=== PATIENT | female | born 1960 | race Caucasian/White ===

== ENCOUNTER 2017-08-16 03:50 | Inpatient (IN) | payer BC ==
[2017-08-16 04:00] VITALS: BMI 33.5
--- NOTE | 2017-08-16 04:05 | ED PDOC ---
Arrival/HPI <Esequiel Parada - Last Filed: 08/16/17 04:55> - General Historian: Patient, Spouse - History of Present Illness Time/Duration: Prior to Arrival Symptom Onset: Sudden Symptom Course: Unchanged Severity Level: Moderate Context: Home <Samantha Lin - Last Filed: 08/16/17 05:32> - General Chief Complaint: Abnormal Skin Integrity Time Seen by Provider: 08/16/17 03:58 - History of Present Illness Narrative History of Present Illness (Text): 08/16/17 04:05 57F w/PMH Sig for ESRD on HD evaluated for bleeding 2/2 discontinued HD catheter. Pt was at home early this AM when she reported to that she was bleeding from her right chest wall HD catheter insertion site. Pt started to bleed perfusely, was brought into hospital. Pt denies trauma or intentional removal of catheter, states that it was secured to chest wall with tape. Denies N/V/F/C, shortness of breath, chest pain, ab pain, other complaints. PMH: CAD s/p stents, ESRD on HD (TTS), diabetes, hypertension, hx stroke x 2 PSH: Stents, HD catheter All: NKDA SH: Denies tobacco, ETOH, illicit drug use (Samantha Lin) Associated Symptoms (Text): 08/16/17 04:08 none (Samatnha Lin) Past Medical History - Provider Review Nursing Documentation Reviewed: Yes <Samantha Lin - Last Filed: 08/16/17 05:32> Family/Social History - Physician Review Nursing Documentation Reviewed: Yes Family/Social History: No Known Family HX Smoking Status: Never Smoked Hx Alcohol Use: No Hx Substance Use: No <Samantha Lin - Last Filed: 08/16/17 05:32> Allergies/Home Meds <Esequiel Parada - Last Filed: 08/16/17 04:55> <Samantha Lin - Last Filed: 08/16/17 05:32> Allergies/Adverse Reactions: Allergies No Known Drug Allergies Allergy (Mild, Verified 08/16/17 04:01) none Home Medications: Home Meds Medication Instructions Recorded Confirmed Aspirin [Aspirin Chewable] 81 mg PO DAILY 08/16/17 08/16/17 Atorvastatin [Lipitor] 40 mg PO HS 08/16/17 08/16/17 B Complex W-C No.20/Folic Acid 1 mg PO DAILY 08/16/17 08/16/17 [[place] Caps Softgel] Calcium Acetate [Phoslo] 667 mg PO TID 08/16/17 08/16/17 Gabapentin [Neurontin] 100 mg PO DAILY 08/16/17 08/16/17 Metoprolol Tartrate [Lopressor] 25 mg PO Q12H 08/16/17 08/16/17 Valsartan [Diovan] 320 mg PO DAILY 08/16/17 08/16/17 amLODIPine [Norvasc] 10 mg PO DAILY 08/16/17 08/16/17 Review of Systems - Review of Systems Constitutional: Normal. absent: Fatigue, Fevers Eyes: Normal ENT: Normal Respiratory: Normal Cardiovascular: Normal. absent: Chest Pain Gastrointestinal: Normal. absent: Abdominal Pain Musculoskeletal: Normal. absent: Back Pain Skin: Normal. absent: Rash Neurological: Normal. absent: Headache <Samantha Lin - Last Filed: 08/16/17 05:32> Physical Exam Vital Signs Reviewed: Yes Temperature: Afebrile Blood Pressure: Hypotensive Pulse: Regular Respiratory Rate: Normal Appearance: Positive for: Non-Toxic, Comfortable Pain Distress: None Mental Status: Positive for: Alert and Oriented X 3 - Systems Exam Head: Present: Atraumatic, Normocephalic Pupils: Present: PERRL Extroacular Muscles: Present: EOMI Conjunctiva: Present: Normal Mouth: Present: Moist Mucous Membranes Nose (External): Present: Atraumatic Neck: Present: Normal Range of Motion Respiratory/Chest: Present: Clear to Auscultation, Good Air Exchange. No: Respiratory Distress, Accessory Muscle Use Cardiovascular: Present: Regular Rate and Rhythm, Normal S1, S2. No: Murmurs Abdomen: Present: Normal Bowel Sounds. No: Tenderness, Distention, Peritoneal Signs Upper Extremity: Present: Normal Inspection. No: Cyanosis, Edema Lower Extremity: Present: Normal Inspection. No: Edema Neurological: Present: GCS=15, CN II-XII Intact, Speech Normal Skin: Present: Warm, Dry, Normal Color, Other (Right chest wall with HD insertion site- no longer bleeding). No: Rashes Psychiatric: Present: Alert, Oriented x 3, Normal Insight, Normal Concentration <Samantha Lin - Last Filed: 08/16/17 05:32> Vital Signs Temp Pulse Resp BP Pulse Ox 08/16/17 04:00 98.3 F 85 18 96/60 L 99 Medical Decision Making - Lab Interpretations I have reviewed the lab results: Yes - EKG Interpretation Interpreted by ED Physician: Yes Type: 12 lead EKG <Esequiel Parada - Last Filed: 08/16/17 04:55> - Lab Interpretations I have reviewed the lab results: Yes - EKG Interpretation Interpreted by ED Physician: Yes Type: 12 lead EKG <Samantha Lin - Last Filed: 08/16/17 05:32> ED Course and Treatment: 08/16/17 04:45 Patient Seen With Resident: In agreement with resident note, which includes further HPI details. Patient was seen and evaluated with resident, came up with plan and treatment together. 57 year old female presents complaining of bleeding from her right chest wall HD catheter insertion site that began today. (Esequiel Parada) 08/16/17 04:29 Pt seen/evaluated, will order labs and other studies to evaluate, order surgery consult for HD catheter re-placement. 08/16/17 05:[address] Smith for possible admission, admission declined, will go to hospitalist team. vice president marketing & development notified. (Samantha Lin) - Lab Interpretations Lab Results: 08/16/17 04:45 08/16/17 04:45 Lab Results 08/16/17 04:45: Blood Type Pending, Antibody Screen Pending, BBK History Checked No verified bt 08/16/17 04:45: Sodium 136, Potassium 5.5 H, Chloride 97 L, Carbon Dioxide 25, Anion Gap 20, BUN 58 H, Creatinine 7.5 H*, Est GFR ( Amer) 7, Est GFR ( Non-Af Amer) 6, Random Glucose 246 H, Calcium 8.9, Total Bilirubin 0.4, AST 24, ALT 20, Alkaline Phosphatase 114, Total Protein 6.6, Albumin 3.2, Globulin 3.4, Albumin/Globulin Ratio 0.9 L 08/16/17 04:45: PT 10.7, INR 0.99, APTT 27.2 08/16/17 04:45: WBC 10.3, RBC 3.22 L, Hgb 8.8 L, Hct 28.1 L, MCV 87.3, MCH 27.3 , MCHC 31.3, RDW 15.9 H, Plt Count 391, MPV 8.8, Gran % 67.4, Lymph % (Auto) 22.5, [place] % (Auto) 4.9, Eos % (Auto) 4.7, Baso % (Auto) 0.5, Gran # 6.96 H, Lymph # 2.3, [place] # 0.5, Eos # 0.5, Baso # 0.05 - RAD Interpretation Radiology Orders: 08/16/17 04:09 CHEST PORTABLE [RAD] Stat - EKG Interpretation EKG Interpretation (Text): 08/16/17 05:16 NSR (Samantha Lin) - PA / BPM ANALYST / Resident 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 MD/DO has examined the patient and agrees with the treatment plan. - Scribe Statement The provider has reviewed the documentation as recorded by the Scribe <Esequiel Parada - Last Filed: 08/16/17 04:55> <Samantha Lin - Last Filed: 08/16/17 05:32> - Scribe Statement Armida Pickering All medical record entries made by the Scribe were at my direction and personally dictated by me. I have reviewed the chart and agree that the record accurately reflects my personal performance of the history, physical exam, medical decision making, and the department course for this patient. I have also personally directed, reviewed, and agree with the discharge instructions and disposition. (Esequiel Parada) Disposition/Present on Arrival <Esequiel Parada - Last Filed: 08/16/17 04:55> - Present on Arrival Any Indicators Present on Arrival: No History of DVT/PE: No History of Uncontrolled Diabetes: No Urinary Catheter: No History of Decub. Ulcer: No - Disposition Have Diagnosis and Disposition been Completed?: Yes Disposition Time: 05:10 Patient Plan: Admission <Samantha Lin - Last Filed: 08/16/17 05:32> - Disposition Diagnosis: Displacement of vascular dialysis catheter Disposition: HOSPITALIZED Condition: FAIR Forms: [employer] (Bengali)
[2017-08-16 05:03] LABS: BASO # 0.05 K/mm3 (0.0-2.0); BASO % 0.5 % (0.0-3.0); EOS # 0.5 (0.0-0.7); EOS % 4.7 % (1.5-5.0); GRAN # 6.96 (1.4-6.5); GRAN % 67.4 % (50.0-68.0); HEMATOCRIT 28.1 % (36.0-48.0); LYMPH # 2.3 (1.2-3.4); LYMPH % 22.5 % (22.0-35.0); MEAN CELL VOLUME 87.3 fl (80.0-105.0); MEAN CORPUSCULAR HEMOGLOBIN 27.3 pg (25.0-35.0); MEAN CORPUSCULAR HGB CONC 31.3 g/dl (31.0-37.0); MEAN PLATELET VOLUME 8.8 fl (7.0-11.0); MONO # 0.5 (0.1-0.6); MONO % 4.9 % (1.0-6.0); RED CELL DISTRIBUTION WIDTH 15.9 % (11.5-14.5); WHITE BLOOD COUNT 10.3 10^3/ul (4.5-11.0)
[2017-08-16 05:11] LABS: INR 0.99 (0.93-1.08); PARTIAL THROMBOPLASTIN TIME 27.2 Seconds (23.7-30.8)
[2017-08-16 05:13] LABS: ALB/GLOB RATIO 0.9 (1.1-1.8); BILIRUBIN,TOTAL 0.4 mg/dL (0.2-1.3); CALCIUM 8.9 mg/dL (8.4-10.5); POTASSIUM 5.5 mmol/L (3.6-5.0); TOTAL PROTEIN 6.6 g/dL (5.8-8.3)
--- NOTE | 2017-08-16 06:01 | CP.PCM.CON ---
History of Present Illness - History of Present Illness History of Present Illness: General Surgery- Dr. Yeung 57F pmhx stroke x2, ESRD, permacath placement presented to the [facility] ED with tunneled dialysis catheter site bleeding from "falling out". Pt states she was sleeping and woke up in puddle of blood and dialysis catheter having fallen out. Pt does not recall pulling on the catheter. Most of the history was obtained from the . Pt receiving dialysis 3x per week and is scheduled to have dialysis today. Permacath was placed at [facility] and is schedule to have an AV-Fistula formation in the near future. Current mental status is AAOx2 (Person & place) Pt denies F/C CP/SOB N/V/D light headed, numbness/tingling in extremities PSH: Right Toe debridement, Cardiac stent 2007, permacath PMH: stroke x2, HTN, DM, ESRD ALL: NKDA SocialHx; Denies ETOH, tobacco, drug use Review of Systems - Review of Systems All systems: reviewed and no additional remarkable complaints except - Constitutional Constitutional: As Per HPI Past Patient History - Past Social History Smoking Status: Never Smoked - CARDIAC Hx Cardiac Disorders: Yes Hx Hypercholesterolemia: Yes Hx Hypertension: Yes Other/Comment: 1 coronary stent - PULMONARY Hx Respiratory Disorders: No - NEUROLOGICAL Hx Neurological Disorder: Yes Hx Transient Ischemic Attacks (TIA): Yes - HEENT Hx HEENT Problems: No - RENAL Hx Chronic Kidney Disease: Yes Hx Dialysis: Yes Date of Last Dialysis Treatment: 08/14/17 - ENDOCRINE/METABOLIC Hx Endocrine Disorders: Yes Hx Diabetes Mellitus Type 2: Yes - HEMATOLOGICAL/ONCOLOGICAL Hx Blood Disorders: No - INTEGUMENTARY Hx Dermatological Problems: No - MUSCULOSKELETAL/RHEUMATOLOGICAL Hx Musculoskeletal Disorders: No - GASTROINTESTINAL Hx Gastrointestinal Disorders: No - GENITOURINARY/GYNECOLOGICAL Hx Genitourinary Disorders: No - PSYCHIATRIC Hx Substance Use: No - SURGICAL HISTORY Hx Surgeries: Yes Hx Cardiac Catheterization: Yes Hx Section: Yes (X2) Meds Allergies/Adverse Reactions: Allergies Allergy/AdvReac Type Severity Reaction Status Date / Time No Known Drug Allergies Allergy Mild none Verified 08/16/17 04:01 Physical Exam - Constitutional Appears: Non-toxic, No Acute Distress - Head Exam Head Exam: ATRAUMATIC - Eye Exam Eye Exam: absent: Periorbital swelling, Scleral icterus - ENT Exam ENT Exam: Mucous Membranes Moist - Neck Exam Additional comments: HD tunneled site: no erythema or active bleeding - Respiratory Exam Respiratory Exam: NORMAL BREATHING PATTERN. absent: Accessory Muscle Use, Respiratory Distress - Cardiovascular Exam Cardiovascular Exam: Tachycardia, RRR, +S1, +S2. absent: Bradycardia - GI/Abdominal Exam GI & Abdominal Exam: Normal Bowel Sounds, Soft. absent: Distended, Firm, Rigid - Extremities Exam Additional comments: Right toe- mal perforans ulcer. - Neurological Exam Neurological exam: Alert Additional comments: AAOx2 - Skin Skin Exam: Normal Color Results - Vital Signs Recent Vital Signs: Last Vital Signs Temp 98.3 F 08/16/17 04:00 Pulse 85 08/16/17 04:00 Resp 18 08/16/17 04:00 BP 96/60 L 08/16/17 04:00 Pulse Ox 99 08/16/17 04:00 - Labs Result Diagrams: 08/16/17 04:45 08/16/17 04:45 Assessment & Plan - Assessment and Plan (Free Text) Assessment: 57F w/ ESRD s/p tunneled HD catheter pulled out Plan: - site looks clean w/ proper hemostasis - f/u labs in 6hrs - f/u BCx - plan for temporary dialysis catheter placement - NPO - IVF will d/w surgical attending Carlos Ignacio PGY1
[2017-08-16] MEDS ORDERED: Lactated Ringer's 1,000 ML IV SCH (06:15)
[2017-08-16] MEDS: Pantoprazole 40 mg EC Tab PO SCH (06:15)
[2017-08-16] MEDS: Vancomycin 1gm in NS 250ml 1 GM/250 ML BAG IVPB SCH ×2 (06:15→20:55)
--- NOTE | 2017-08-16 06:29 | CP.PCM.HP ---
<CarrieJose waggoner - Last Filed: 08/16/17 06:21> History of Present Illness - History of Present Illness History of Present Illness: H/P For IM -TKS DO, PGY-1 CC: Dialysis Catheter Out HPI: 57F w pertinent PMHx of HTN, DM, and ESRD on Dialysis T/R/Sa presents with 2 hour duration of profuse bleeding 2/2 her dialysis catheter coming out. She states that she woke up at 3AM and found herself to be bleeding from the catheter site. She and her family both state that sometimes she becomes obtunded but that this am she was lucid, and that she did not pull the catheter out. Her became worried and immediately drove her to the ED, but she did lose quite a bit of blood. Pt's dialysis catheter was placed at [facility] and she is scheduled to have an AVFistula placed soon. Pt denies having any symptoms at all at this time including dizziness, fatigue, confusion. Family also states that she is completely lucid at this time. No further complaints. Pt denies f/ch/cp/sob/n/v/d/hematochezia/hematemesis PSHx: Right Toe debridement, Cardiac stent 2007, Permacath PMHx: stroke x2, HTN, DM, ESRD, CAD s/p stents 2007 All: NKDA SocHx: Denies EtOH, Tobacco, Illicits Hosp: In hospital from April - June when first placed on dialysis FamHx: Non-contributory Meds: See MAR ROS: Constitutional: pt denies fever, chills, generalized weakness ENT: pt denies dysphagia, otalgia, hearing deficit, rhinorrhea Eyes: pt denies sudden loss of vision, diplopia, blurred vision MSK: pt denies muscle stiffness, joint pain, extremity cramping Cardio: pt denies sob, heart murmur, cp Pulm: pt denies cough, hemoptysis, wheeze GI: pt denies loss of appetite, abdominal pain, constipation, melena, n/v/d : pt denies burning on urination, urinary frequency, hematuria, urinary urgency Neuro: pt denies paresis, paresthesia, dizziness, hernández, numbness, tingling Derm: pt denies skin changes, lesions, nail changes Endo: pt denies intolerance to heat/cold, diaphoresis, night sweats, polydipsia Psych: pt denies anxiety, depression, mood changes Present on Admission - Present on Admission Any Indicators Present on Admission: No Past Patient History - Past Social History Smoking Status: Never Smoked - CARDIAC Hx Cardiac Disorders: Yes Hx Hypercholesterolemia: Yes Hx Hypertension: Yes Other/Comment: 1 coronary stent - PULMONARY Hx Respiratory Disorders: No - NEUROLOGICAL Hx Neurological Disorder: Yes Hx Transient Ischemic Attacks (TIA): Yes - HEENT Hx HEENT Problems: No - RENAL Hx Chronic Kidney Disease: Yes Hx Dialysis: Yes Date of Last Dialysis Treatment: 08/14/17 - ENDOCRINE/METABOLIC Hx Endocrine Disorders: Yes Hx Diabetes Mellitus Type 2: Yes - HEMATOLOGICAL/ONCOLOGICAL Hx Blood Disorders: No - INTEGUMENTARY Hx Dermatological Problems: No - MUSCULOSKELETAL/RHEUMATOLOGICAL Hx Musculoskeletal Disorders: No - GASTROINTESTINAL Hx Gastrointestinal Disorders: No - GENITOURINARY/GYNECOLOGICAL Hx Genitourinary Disorders: No - PSYCHIATRIC Hx Substance Use: No - SURGICAL HISTORY Hx Surgeries: Yes Hx Cardiac Catheterization: Yes Hx Section: Yes (X2) Meds Allergies/Adverse Reactions: Allergies Allergy/AdvReac Type Severity Reaction Status Date / Time No Known Drug Allergies Allergy Mild none Verified 08/16/17 04:01 Physical Exam - Additional Findings Additional findings: Phys Exam: VS as below Constitutional: a&o x 4, nad Head and Neck: neck supple, no jvd, trachea midline, carotid midline, no cervical/head mass Eyes: jacki, nonicteric sclera, eom intact ENT: auditory acuity grossly intact, throat not congested, no nasal deformity Chest: +minor bleeding from catheter site on R upper chest wall Cardio: rrr, no m/r/g, no carotid bruit, nml s1, s2 Pulm: no accessory muscle use, equal nml breath sounds bilaterally, ctab Abd: s/nt/nd, nbs x 4 q, no palpable masses Derm: +see extremities exam; no rashes, no ulcers Extr: +r hallux erythematous, warm, and swollen; no edema, no cyanosis, no calf tenderness, no lesions, no varicosities Neuro: cn II-XII grossly intact, ue and le 5/5 muscle strength bilaterally , no los ue, le bilaterally and core Results - Vital Signs Recent Vital Signs: Last Vital Signs Temp 98.3 F 08/16/17 04:00 Pulse 68 10/07/17 06:04 Resp 16 08/16/17 06:04 BP 100/62 08/16/17 06:04 Pulse Ox 99 08/16/17 06:04 - Labs Result Diagrams: 08/16/17 04:45 08/16/17 04:45 Assessment & Plan - Assessment and Plan (Free Text) Assessment: A/P 57 F with multiple co-morbidities presenting with profuse bleeding after dialysis catheter came out, denies pulling it out. Asymptomatic despite profuse blood loss. Dialysis Permacath Removed - Nephro c/s - help decide where and when to place catheter - General Surgery c/s: Dr. Yeung - NPO ESRD on Dialysis - Nephro c/s: Dr. Haji - Pt is hyperkalemic and creatinine is elevated, needs dialysis today - Continue home Phoslo and B Complex R Hallux Infection - Vanc/Zosyn - Pods C/s: Gallanter Hx/O HTN - Continue Amlodipine, Valsartan, Metoprolol Hx/O DM - RISS Low Hx/O CAD s/p Stents - Continue home Lipitor, ASA PPX - Heparin/Protonix <Esther HAM,Aldo - Last Filed: 08/18/17 11:15> Results - Vital Signs Recent Vital Signs: Last Vital Signs Temp 98.0 F 08/18/17 07:30 Pulse 76 08/18/17 07:30 Resp 20 08/18/17 07:30 BP 153/67 H 08/18/17 10:29 Pulse Ox 98 08/18/17 07:30 - Labs Result Diagrams: 08/18/17 06:45 08/18/17 06:45 Labs: Laboratory Results - last 24 hr 08/16/17 08/17/17 08/17/17 21:25 11:54 16:11 WBC RBC Hgb Hct MCV MCH MCHC RDW Plt Count MPV Gran % Lymph % (Auto) [place] % (Auto) Eos % (Auto) Baso % (Auto) Gran # Lymph # [place] # Eos # Baso # Sodium Potassium Chloride Carbon Dioxide Anion Gap BUN Creatinine Est GFR ( Amer) Est GFR (Non-Af Amer) POC Glucose (mg/dL) 196 H 229 H 226 H Random Glucose Calcium Phosphorus Magnesium Total Bilirubin AST ALT Alkaline Phosphatase Total Protein Albumin Globulin Albumin/Globulin Ratio 08/17/17 08/18/17 08/18/17 20:59 06:45 06:45 WBC 9.7 D RBC 2.67 L Hgb 7.3 L Hct 23.2 L MCV 86.9 MCH 27.3 MCHC 31.5 RDW 16.6 H Plt Count 320 MPV 8.8 Gran % 68.7 H Lymph % (Auto) 20.5 L [place] % (Auto) 6.0 Eos % (Auto) 4.4 Baso % (Auto) 0.4 Gran # 6.69 H Lymph # 2.0 [place] # 0.6 Eos # 0.4 Baso # 0.04 Sodium 132 Potassium 5.9 H* Chloride 95 Carbon Dioxide 25 Anion Gap 18 BUN 58 H Creatinine 8.9 H* D Est GFR ( Amer) 6 Est GFR (Non-Af Amer) 5 POC Glucose (mg/dL) 280 H Random Glucose 203 H Calcium 8.5 Phosphorus 8.3 H Magnesium 2.2 Total Bilirubin 0.4 AST 30 ALT 26 Alkaline Phosphatase 82 Total Protein 6.6 Albumin 3.5 Globulin 3.2 Albumin/Globulin Ratio 1.1 08/18/17 07:37 WBC RBC Hgb Hct MCV MCH MCHC RDW Plt Count MPV Gran % Lymph % (Auto) [place] % (Auto) Eos % (Auto) Baso % (Auto) Gran # Lymph # [place] # Eos # Baso # Sodium Potassium Chloride Carbon Dioxide Anion Gap BUN Creatinine Est GFR ( Amer) Est GFR (Non-Af Amer) POC Glucose (mg/dL) 236 H Random Glucose Calcium Phosphorus Magnesium Total Bilirubin AST ALT Alkaline Phosphatase Total Protein Albumin Globulin Albumin/Globulin Ratio Attending/Attestation - Attestation I have personally seen and examined this patient.: Yes I have fully participated in the care of the patient.: Yes I have reviewed all pertinent clinical information: Yes Notes (Text): -I agree with the above H&P completed by the resident physician with the following additions and/or changes: -The patient is a 57 year old woman with a history of ESRD-DD, HTN and NIDDM, who is being admitted for dialysis catheter dysfunction/malfunction. Nephrology has been consulted and the patient will be kept NPO for likely placement of new dialysis catheter tomorrow.
[2017-08-16 07:37] LABS: MAGNESIUM 2.2 mg/dL (1.7-2.2); PHOSPHOROUS 7.6 mg/dL (2.5-4.5)
[2017-08-16] MEDS: Insulin Lispro (humaLOG) LOW Coverage SC SCH ×4 (07:54→22:27)
--- NOTE | 2017-08-16 09:37 | CP.PCM.CON ---
Past Patient History - Past Social History Smoking Status: Never Smoked - CARDIAC Hx Cardiac Disorders: Yes Hx Hypercholesterolemia: Yes Hx Hypertension: Yes Other/Comment: 1 coronary stent - PULMONARY Hx Respiratory Disorders: No - NEUROLOGICAL Hx Neurological Disorder: Yes Hx Transient Ischemic Attacks (TIA): Yes - HEENT Hx HEENT Problems: No - RENAL Hx Chronic Kidney Disease: Yes Hx Dialysis: Yes Date of Last Dialysis Treatment: 08/14/17 - ENDOCRINE/METABOLIC Hx Endocrine Disorders: Yes Hx Diabetes Mellitus Type 2: Yes - HEMATOLOGICAL/ONCOLOGICAL Hx Blood Disorders: No - INTEGUMENTARY Hx Dermatological Problems: No - MUSCULOSKELETAL/RHEUMATOLOGICAL Hx Musculoskeletal Disorders: No - GASTROINTESTINAL Hx Gastrointestinal Disorders: No - GENITOURINARY/GYNECOLOGICAL Hx Genitourinary Disorders: No - PSYCHIATRIC Hx Substance Use: No - SURGICAL HISTORY Hx Surgeries: Yes Hx Cardiac Catheterization: Yes Hx Section: Yes (X2) Meds Allergies/Adverse Reactions: Allergies Allergy/AdvReac Type Severity Reaction Status Date / Time No Known Drug Allergies Allergy Mild none Verified 08/16/17 04:01 - Medications Medications: Current Medications Amlodipine Besylate (Norvasc) 10 mg PO DAILY SHILO Aspirin (Aspirin Chewable) 81 mg PO DAILY SHILO Atorvastatin Calcium (Lipitor) 40 mg PO HS SHILO Calcium Acetate (Phoslo) 667 mg PO WM SHILO Gabapentin (Neurontin) 100 mg PO DAILY SHILO PRN Reason: Protocol Heparin Sodium (Porcine) (Heparin) 5,000 units SC Q12 SHILO PRN Reason: Protocol Vancomycin HCl (Vancomycin 1gm) 1 gm in 250 mls @ 167 mls/hr IVPB Q12H SHILO PRN Reason: Protocol Last Admin: 08/16/17 06:15 Dose: 167 mls/hr Piperacillin Sod/Tazobactam Sod (Zosyn 2.25 Gm In 0.9% 100 Ml) 2.25 gm in 100 mls @ 200 mls/hr IVPB Q12H SHILO PRN Reason: Protocol Stop: 08/16/17 19:29 Lactated Ringer's (Lactated Ringer's) 1,000 mls @ 125 mls/hr IV .Q8H SHILO Insulin Human Lispro (Humalog Low) 0 units SC ACHS SHILO PRN Reason: Protocol Metoprolol Tartrate (Lopressor) 25 mg PO Q12H [facility]ILO Pantoprazole Sodium (Protonix Ec Tab) 40 mg PO 0600 [facility] Last Admin: 08/16/17 06:15 Dose: 40 mg Valsartan (Diovan) 320 mg PO DAILY [facility] Vitamin B Complex/Vit C/Folic Acid (Nephro-Callie) 1 tab PO DAILY [facility] Results - Vital Signs Recent Vital Signs: Last Vital Signs Temp 98.8 F 08/16/17 08:11 Pulse 78 08/16/17 08:11 Resp 20 08/16/17 08:11 BP 140/59 L 08/16/17 08:11 Pulse Ox 97 08/16/17 08:11 - Labs Result Diagrams: 08/16/17 04:45 08/16/17 04:45 Labs: Laboratory Results - last 24 hr 08/16/17 08/16/17 06:00 07:58 POC Glucose (mg/dL) 275 H Blood Type Confirm B POSITIVE
--- NOTE | 2017-08-16 09:58 | RAD ---
PROCEDURE: Radiographs of the right great toe. TECHNIQUE:: AP radiograph of the right foot, with oblique and lateral view of the right great toe. COMPARISON: None. FINDINGS: BONES: No acute fracture or evidence of osteomyelitis. JOINTS: Normal. SOFT TISSUES: Soft tissue swelling 1st digit. OTHER FINDINGS: None. IMPRESSION: Soft tissue swelling without acute articular or osseous abnormality. Please note: No preliminary report/ innterpretation of this examination provided by emergency department personnel.
--- NOTE | 2017-08-16 10:21 | RAD ---
HISTORY: HD catheter removed COMPARISON: None. FINDINGS: LUNGS: Haziness overlying the right lung, of the likely artifact. If pneumonia is suspected repeat two-view study advised. PLEURA: No significant pleural effusion identified, no pneumothorax apparent. CARDIOVASCULAR: Normal. OSSEOUS STRUCTURES: No significant abnormalities. VISUALIZED UPPER ABDOMEN: Normal. OTHER FINDINGS: None. IMPRESSION: No active disease. Please note: No preliminary report/ innterpretation of this examination provided by emergency department personnel.
[2017-08-16] MEDS: Multivitamin Vitamin B Complex (Nephro-Vite) Tab PO SCH (10:54)
[2017-08-16] MEDS: Piperacillin/Tazobact 2.25gm 2.25 GM/100 ML BAG IVPB SCH ×2 (10:57→19:29)
[2017-08-16] MEDS ORDERED: Darbepoetin Alfa 60 mcg/ml Inj IVP ONE (12:22)
[2017-08-16] MEDS ORDERED: Doxercalciferol 4 mcg/2 ml Inj IV ONE (12:23)
[2017-08-16] MEDS ORDERED: Pneumococcal 23-Valent Vaccine IM ONE (12:28)
[2017-08-16 13:08] LABS: BASO # 0.07 K/mm3 (0.0-2.0); BASO % 0.5 % (0.0-3.0); EOS # 0.4 (0.0-0.7); EOS % 3.3 % (1.5-5.0); GRAN # 8.73 (1.4-6.5); GRAN % 68.6 % (50.0-68.0); HEMATOCRIT 26.6 % (36.0-48.0); LYMPH # 2.9 (1.2-3.4); LYMPH % 22.5 % (22.0-35.0); MEAN CELL VOLUME 87.5 fl (80.0-105.0); MEAN CORPUSCULAR HGB CONC 30.8 g/dl (31.0-37.0); MEAN PLATELET VOLUME 8.4 fl (7.0-11.0); MONO # 0.7 (0.1-0.6); MONO % 5.1 % (1.0-6.0); WHITE BLOOD COUNT 12.7 10^3/ul (4.5-11.0)
[2017-08-16 13:25] LABS: BILIRUBIN,TOTAL 0.4 mg/dL (0.2-1.3); CALCIUM 9.2 mg/dL (8.4-10.5); TOTAL PROTEIN 6.7 g/dL (5.8-8.3)
--- NOTE | 2017-08-16 14:12 | CP.PCM.CON ---
History of Present Illness - History of Present Illness History of Present Illness: pt is seen and examined, full consult is dictated #[id number] 1. esrd 2. dislodged perma cath 3.hyperkalemia 4.htn 5.DM 6.CVA for hd today s/p rt fv cath placement for possible perma cath on friday Past Patient History - Past Social History Smoking Status: Never Smoked - CARDIAC Hx Cardiac Disorders: Yes Hx Hypercholesterolemia: Yes Hx Hypertension: Yes Hx Peripheral Edema: Yes (ble +1 pitting) - PULMONARY Hx Respiratory Disorders: No - NEUROLOGICAL Hx Neurological Disorder: Yes Hx Transient Ischemic Attacks (TIA): Yes (12/2016 no residual) - HEENT Hx HEENT Problems: Yes ([place] ear does not use hearing aid) Hx Cataracts: Yes (b/l sx) - RENAL Hx Chronic Kidney Disease: Yes Hx Dialysis: Yes (started hd 12/2016) Date of Last Dialysis Treatment: 08/14/17 Other/Comment: dialysis at 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 - MUSCULOSKELETAL/RHEUMATOLOGICAL Hx Falls: No Hx Unsteady Gait: Yes (walker) - GASTROINTESTINAL Hx Gastrointestinal Disorders: No - GENITOURINARY/GYNECOLOGICAL Hx Genitourinary Disorders: No - PSYCHIATRIC Hx Psychophysiologic Disorder: No Hx Substance Use: No - SURGICAL HISTORY Hx Surgeries: Yes (c section x2) Hx Cardiac Catheterization: Yes Hx Coronary Stent: Yes (x1) Meds Allergies/Adverse Reactions: Allergies Allergy/AdvReac Type Severity Reaction Status Date / Time No Known Drug Allergies Allergy Mild none Verified 08/16/17 04:01 - Medications Medications: Current Medications Amlodipine Besylate (Norvasc) 10 mg PO DAILY [facility] Last Admin: 08/16/17 10:54 Dose: 10 mg Aspirin (Aspirin Chewable) 81 mg PO DAILY [facility] Last Admin: 08/16/17 10:53 Dose: 81 mg Atorvastatin Calcium (Lipitor) 40 mg PO HS [facility] Calcium Acetate (Phoslo) 667 mg PO WM [facility] Last Admin: 08/16/17 10:53 Dose: 667 mg Gabapentin (Neurontin) 100 mg PO DAILY [facility] PRN Reason: Protocol Last Admin: 08/16/17 10:53 Dose: 100 mg Heparin Sodium (Porcine) (Heparin) 5,000 units SC Q12 [facility] PRN Reason: Protocol Last Admin: 08/16/17 10:53 Dose: 5,000 units Vancomycin HCl (Vancomycin 1gm) 1 gm in 250 mls @ 167 mls/hr IVPB Q12H [facility] PRN Reason: Protocol Last Admin: 08/16/17 06:15 Dose: 167 mls/hr Piperacillin Sod/Tazobactam Sod (Zosyn 2.25 Gm In 0.9% 100 Ml) 2.25 gm in 100 mls @ 200 mls/hr IVPB Q12H [facility] PRN Reason: Protocol Stop: 08/16/17 19:29 Last Admin: 08/16/17 10:57 Dose: 200 mls/hr Lactated Ringer's (Lactated Ringer's) 1,000 mls @ 125 mls/hr IV .Q8H [facility] Last Admin: 08/16/17 11:10 Dose: 125 mls/hr Insulin Human Lispro (Humalog Low) 0 units SC ACHS [facility] PRN Reason: Protocol Last Admin: 08/16/17 11:47 Dose: Not Given Metoprolol Tartrate (Lopressor) 25 mg PO Q12H [facility] Pantoprazole Sodium (Protonix Ec Tab) 40 mg PO 0600 [facility] Last Admin: 08/16/17 06:15 Dose: 40 mg Valsartan (Diovan) 320 mg PO DAILY [facility] Last Admin: 08/16/17 10:53 Dose: 320 mg Vitamin B Complex/Vit C/Folic Acid (Nephro-Callie) 1 tab PO DAILY [facility] Last Admin: 08/16/17 10:54 Dose: 1 tab Results - Vital Signs Recent Vital Signs: Last Vital Signs Temp 98.8 F 08/16/17 12:13 Pulse 78 08/16/17 12:13 Resp 20 08/16/17 12:13 BP 140/59 L 08/16/17 12:13 Pulse Ox 97 08/16/17 08:11 - Labs Result Diagrams: 08/16/17 12:45 08/16/17 12:45 Labs: Laboratory Results - last 24 hr 08/16/17 08/16/17 08/16/17 06:00 07:58 12:45 WBC 12.7 H D RBC 3.04 L Hgb 8.2 L Hct 26.6 L MCV 87.5 MCH 27.0 MCHC 30.8 L RDW 16.0 H Plt Count 357 MPV 8.4 Gran % 68.6 H Lymph % (Auto) 22.5 Bowie % (Auto) 5.1 Eos % (Auto) 3.3 Baso % (Auto) 0.5 Gran # 8.73 H Lymph # 2.9 Bowie # 0.7 H Eos # 0.4 Baso # 0.07 Sodium Potassium Chloride Carbon Dioxide Anion Gap BUN Creatinine Est GFR ( Amer) Est GFR (Non-Af Amer) POC Glucose (mg/dL) 275 H Random Glucose Calcium Total Bilirubin AST ALT Alkaline Phosphatase Total Protein Albumin Globulin Albumin/Globulin Ratio Blood Type Confirm B POSITIVE 08/16/17 12:45 WBC RBC Hgb Hct MCV MCH MCHC RDW Plt Count MPV Gran % Lymph % (Auto) Bowie % (Auto) Eos % (Auto) Baso % (Auto) Gran # Lymph # Bowie # Eos # Baso # Sodium 137 Potassium 6.0 H* Chloride 97 L Carbon Dioxide 26 Anion Gap 20 BUN 61 H Creatinine 8.7 H* Est GFR ( Amer) 6 Est GFR (Non-Af Amer) 5 POC Glucose (mg/dL) Random Glucose 192 H Calcium 9.2 Total Bilirubin 0.4 AST 28 ALT 21 Alkaline Phosphatase 100 Total Protein 6.7 Albumin 3.4 Globulin 3.3 Albumin/Globulin Ratio 1.0 L Blood Type Confirm
[2017-08-16 19:52] LABS: CALCIUM 8.6 mg/dL (8.4-10.5); PHOSPHOROUS 5.4 mg/dL (2.5-4.5); POTASSIUM 4.6 mmol/L (3.6-5.0)
--- NOTE | 2017-08-16 23:02 | CARD ---
APPROVED REPORT EKG Measurement Heart [id number] MD [id number] [id number] <Conclusion> Normal sinus rhythm Normal ECG
[2017-08-17] MEDS: Vancomycin 1gm in NS 250ml 1 GM/250 ML BAG IVPB SCH (06:30)
[2017-08-17] MEDS: Pantoprazole 40 mg EC Tab PO SCH (06:31)
[2017-08-17 06:58] LABS: BASO # 0.06 K/mm3 (0.0-2.0); BASO % 0.5 % (0.0-3.0); EOS # 0.2 (0.0-0.7); EOS % 1.5 % (1.5-5.0); GRAN # 9.48 (1.4-6.5); GRAN % 71.8 % (50.0-68.0); HEMATOCRIT 24.3 % (36.0-48.0); LYMPH # 2.8 (1.2-3.4); LYMPH % 21.3 % (22.0-35.0); MEAN CELL VOLUME 87.7 fl (80.0-105.0); MEAN CORPUSCULAR HEMOGLOBIN 27.1 pg (25.0-35.0); MEAN CORPUSCULAR HGB CONC 30.9 g/dl (31.0-37.0); MEAN PLATELET VOLUME 8.9 fl (7.0-11.0); MONO # 0.7 (0.1-0.6); MONO % 4.9 % (1.0-6.0); RED CELL DISTRIBUTION WIDTH 16.6 % (11.5-14.5); WHITE BLOOD COUNT 13.2 10^3/ul (4.5-11.0)
[2017-08-17 07:18] LABS: BILIRUBIN,TOTAL 0.3 mg/dL (0.2-1.3); CALCIUM 8.4 mg/dL (8.4-10.5); MAGNESIUM 2.1 mg/dL (1.7-2.2); PHOSPHOROUS 6.9 mg/dL (2.5-4.5); POTASSIUM 5.3 mmol/L (3.6-5.0); TOTAL PROTEIN 6.6 g/dL (5.8-8.3)
[2017-08-17] MEDS: Insulin Lispro (humaLOG) LOW Coverage SC SCH ×4 (07:58→22:26)
--- NOTE | 2017-08-17 10:01 | CP.PCM.PN ---
Subjective - Date & Time of Evaluation Date of Evaluation: 08/17/17 Time of Evaluation: 08:00 - Subjective Subjective: Surgery Progress note. Dr. Yeung Pt seen and examined at bedside. No acute events overnight. No F/C. No N/V/D. no Abd pain. No new compaints. States that she had her scheduled dialysis yesterday. Objective - Vital Signs/Intake and Output Vital Signs (last 24 hours): Temp Pulse Resp BP Pulse Ox 98.9 F 79 20 139/60 97 08/17/17 07:32 08/17/17 07:54 08/17/17 07:32 08/17/17 07:54 08/17/17 07:32 Intake and Output: 08/17/17 08/17/17 06:59 18:59 Intake Total 240 Balance 240 - Medications Medications: Current Medications Amlodipine Besylate (Norvasc) 10 mg PO DAILY [facility] Last Admin: 08/16/17 10:54 Dose: 10 mg Aspirin (Aspirin Chewable) 81 mg PO DAILY [facility] Last Admin: 08/16/17 10:53 Dose: 81 mg Atorvastatin Calcium (Lipitor) 40 mg PO HS [facility] Last Admin: 08/16/17 22:05 Dose: 40 mg Calcium Acetate (Phoslo) 667 mg PO WM [facility] Last Admin: 08/17/17 08:32 Dose: 667 mg Gabapentin (Neurontin) 100 mg PO DAILY [facility] PRN Reason: Protocol Last Admin: 08/16/17 10:53 Dose: 100 mg Heparin Sodium (Porcine) (Heparin) 5,000 units SC Q12 [facility] PRN Reason: Protocol Last Admin: 08/16/17 22:05 Dose: 5,000 units Vancomycin HCl (Vancomycin 1gm) 1 gm in 250 mls @ 167 mls/hr IVPB Q12H [facility] PRN Reason: Protocol Last Admin: 08/17/17 06:30 Dose: 167 mls/hr Insulin Human Lispro (Humalog Low) 0 units SC ACHS [facility] PRN Reason: Protocol Last Admin: 08/16/17 22:27 Dose: Not Given Metoprolol Tartrate (Lopressor) 25 mg PO Q12H [facility] Last Admin: 08/17/17 07:54 Dose: 25 mg Pantoprazole Sodium (Protonix Ec Tab) 40 mg PO 0600 [facility] Last Admin: 08/17/17 06:31 Dose: 40 mg Valsartan (Diovan) 320 mg PO DAILY [facility] Last Admin: 08/16/17 10:53 Dose: 320 mg Vitamin B Complex/Vit C/Folic Acid (Nephro-Callie) 1 tab PO DAILY [facility] Last Admin: 08/16/17 10:54 Dose: 1 tab - Labs Labs: 08/17/17 06:00 08/17/17 06:00 PT 10.7 Seconds (9.9-11.8) 08/16/17 04:45 INR 0.99 (0.93-1.08) 08/16/17 04:45 APTT 27.2 Seconds (23.7-30.8) 08/16/17 04:45 - Constitutional Appears: Well, No Acute Distress - Head Exam Head Exam: ATRAUMATIC, NORMAL INSPECTION, NORMOCEPHALIC - Eye Exam Eye Exam: EOMI - ENT Exam ENT Exam: Mucous Membranes Moist - Extremities Exam Additional comments: Right Femoral Dialysis catherter in place. Dressing clean, dry, and intact. No apparent hematoma. - Neurological Exam Neurological Exam: Alert, Awake, Oriented x3 - Psychiatric Exam Psychiatric exam: Normal Affect, Normal Mood - Skin Skin Exam: Dry, Intact, Normal Color, Warm Assessment and Plan - Assessment and Plan (Free Text) Assessment: 57yo F with ESRD on HD here after pulled permacath. S/p bedside R Femoral temp Dialysis catheter 08/16/17. - Dressing changes prn - Catheter okay to use - Possible OR for permacath on Friday - Medical management as per primary team Further recs as per Dr. Gamal Goodrich PGY1 surgery pager: [phone]
--- NOTE | 2017-08-17 10:06 | PCM.PROC ---
Procedures Attestation:: I certify that I have explained the specified Operation(s) or Procedure(s), risks, benefits and reasonable alternatives to the Patient and/or other person responsible. The opportunity was given to ask questions and all questions answered - Central Line Placement Right Femoral Hemodialysis Access Aseptic technique was employed throughout the procedure: Hand Hygiene done prior to procedure, Full sterile barriers (mask, hair cover, sterile gown, sterile gloves), Full body sterile drape, Chloraprep Antiseptic: 2 minute prep for Femoral CVP Time Out Performed: Yes Central Line Prep: Chlorhexidine-Alcohol Combination Local Anesthesia Used: Lidocaine 1% Amount of Anesthesia Used (mls): 3 Ultrasound Used for Placement: Yes Central Line Lumen Inserted: triple Central Line Length: 16 cm (15cm) Post Procedure: Sutured in Place, Good Blood Return, All Ports Aspirated, Flushed, Capped, Sterile Dressing Applied Secured by: Suture Post procedure dressing: Chlorhexidine disc (Biopatch) Post Procedure X-Ray: No Patient Tolerated Procedure: Well, No Complications Immediate Complications: None Additional Comments: Patient tolerated procedure well. No immediate complications noted.
[2017-08-17] MEDS ORDERED: Valproate 500 MG in Sodium Chloride 0.9% 100 ML IVPB SCH (10:30)
--- NOTE | 2017-08-17 11:28 | CT ---
PROCEDURE: CT HEAD WITHOUT CONTRAST. HISTORY: seizure. COMPARISON: None available. TECHNIQUE: Axial computed tomography images were obtained through the head/brain without intravenous contrast. Radiation dose: Total exam DLP = 823.45 mGy-cm. This CT exam was performed using one or more of the following dose reduction techniques: Automated exposure control, adjustment of the mA and/or kV according to patient size, and/or use of iterative reconstruction technique. FINDINGS: HEMORRHAGE: No intracranial hemorrhage. BRAIN: No mass effect or edema. Old and small right the lamina infarct. Additional small lacune or infarcts on the right identified. Periventricular small vessel disease categorized as mild. VENTRICLES: Unremarkable. No hydrocephalus. CALVARIUM: Unremarkable. PARANASAL SINUSES: Unremarkable as visualized. No significant inflammatory changes. MASTOID AIR CELLS: Unremarkable as visualized. No inflammatory changes. OTHER FINDINGS: None. IMPRESSION: No acute intracranial abnormalities. No significant findings to account for the clinical presentation. Additional benign and/or incidental findings described above.
--- NOTE | 2017-08-17 14:03 | CP.PCM.PN ---
<[place] - Last Filed: 08/17/17 14:08> Subjective - Date & Time of Evaluation Date of Evaluation: 08/17/17 Time of Evaluation: 07:01 - Subjective Subjective: Patient was seen and examined at bedside. The patient reports feeling better however still states she's a little confused. Per nursing the patient had a seizure while at hemodialysis yesterday evening. The patient denies any chest pain, shortness of breath, abdominal pain, nausea, vomiting, syncopal episodes or any other complaints. Objective - Vital Signs/Intake and Output Vital Signs (last 24 hours): Temp Pulse Resp BP Pulse Ox 98.9 F 79 20 139/60 97 08/17/17 07:32 08/17/17 07:54 08/17/17 07:32 08/17/17 07:54 08/17/17 07:32 Intake and Output: 08/17/17 08/17/17 06:59 18:59 Intake Total 240 Balance 240 - Medications Medications: Current Medications Amlodipine Besylate (Norvasc) 10 mg PO DAILY [facility] Last Admin: 08/16/17 10:54 Dose: 10 mg Aspirin (Aspirin Chewable) 81 mg PO DAILY [facility] Last Admin: 08/16/17 10:53 Dose: 81 mg Atorvastatin Calcium (Lipitor) 40 mg PO HS [facility] Last Admin: 08/16/17 22:05 Dose: 40 mg Cadexomer Iodine (Iodosorb) 0 gm TOP DAILY [facility] Calcium Acetate (Phoslo) 667 mg PO WM [facility] Last Admin: 08/17/17 08:32 Dose: 667 mg Gabapentin (Neurontin) 100 mg PO DAILY [facility] PRN Reason: Protocol Last Admin: 08/17/17 13:01 Dose: 100 mg Heparin Sodium (Porcine) (Heparin) 5,000 units SC Q12 [facility] PRN Reason: Protocol Last Admin: 08/16/17 22:05 Dose: 5,000 units Levofloxacin/Dextrose (Levaquin 250mg) 250 mg in 50 mls @ 50 mls/hr IVPB DAILY [facility] Levetiracetam (Keppra 500mg Ivpb) 500 mg in 100 mls @ 400 mls/hr IVPB Q12 [facility] Insulin Human Lispro (Humalog Low) 0 units SC ACHS [facility] PRN Reason: Protocol Last Admin: 08/17/17 12:58 Dose: 2 units Metoprolol Tartrate (Lopressor) 25 mg PO Q12H [facility] Last Admin: 08/17/17 07:54 Dose: 25 mg Pantoprazole Sodium (Protonix Ec Tab) 40 mg PO 0600 [facility] Last Admin: 08/17/17 06:31 Dose: 40 mg Valsartan (Diovan) 320 mg PO DAILY [facility] Last Admin: 08/16/17 10:53 Dose: 320 mg Vitamin B Complex/Vit C/Folic Acid (Nephro-Callie) 1 tab PO DAILY [facility] Last Admin: 08/16/17 10:54 Dose: 1 tab - Labs Labs: 08/17/17 06:00 08/17/17 06:00 PT 10.7 Seconds (9.9-11.8) 08/16/17 04:45 INR 0.99 (0.93-1.08) 08/16/17 04:45 APTT 27.2 Seconds (23.7-30.8) 08/16/17 04:45 - Head Exam Head Exam: ATRAUMATIC, NORMAL INSPECTION, NORMOCEPHALIC - Eye Exam Eye Exam: EOMI, Normal appearance, PERRL. absent: Periorbital tenderness Pupil Exam: NORMAL ACCOMODATION, PERRL. absent: Irregular, Unequal - ENT Exam ENT Exam: Mucous Membranes Moist, Normal Exam. absent: Normal Oropharynx, TM's Normal Bilaterally - Neck Exam Neck Exam: Normal Inspection. absent: Lymphadenopathy, Thyromegaly - Respiratory Exam Respiratory Exam: Clear to Ausculation Bilateral, NORMAL BREATHING PATTERN. absent: Accessory Muscle Use, Chest Wall Tenderness, Respiratory Distress - Cardiovascular Exam Cardiovascular Exam: REGULAR RHYTHM, RRR, +S1, +S2. absent: Gallop, Rubs - GI/Abdominal Exam GI & Abdominal Exam: Soft, Normal Bowel Sounds. absent: Tenderness, Hyperactive Bowel Sounds - Extremities Exam Extremities Exam: Full ROM. absent: Joint Swelling, Pedal Edema, Tenderness Additional comments: right hallux infection. - Back Exam Back Exam: NORMAL INSPECTION. absent: CVA tenderness (L), CVA tenderness (R), paraspinal tenderness - Neurological Exam Neurological Exam: Alert, Awake, Normal Gait, Oriented x3 - Psychiatric Exam Psychiatric exam: Normal Affect, Normal Mood - Skin Skin Exam: Dry, Intact Assessment and Plan - Assessment and Plan (Free Text) Assessment: 57 F with multiple co-morbidities presenting with profuse bleeding after dialysis catheter came out, denies pulling it out. Asymptomatic despite profuse blood loss. Plan: Dialysis Permacath Removed - Nephro c/s - help decide where and when to place catheter - General Surgery c/s: Dr. Yeung - NPO ESRD on Dialysis - Nephro c/s: Dr. Haji - Pt is hyperkalemic and creatinine is elevated. Patient had HD yesterday and had a seizure. Patient started on Keppra. Will monitor closely. - Continue home Phoslo and B Complex -Neuro consulted. Will f/u rec's tomorrow. R Hallux Infection - Continue Vanc/Zosyn -Surgery rec's appreciated. - Pods C/s: Gallanter Hx/O HTN - Continue Amlodipine, Valsartan, Metoprolol Hx/O DM - RISS Low Hx/O CAD s/p Stents - Continue home Lipitor, ASA PPX - Heparin/Protonix <Enedina Chau - Last Filed: 08/25/17 12:21> Objective - Vital Signs/Intake and Output Vital Signs (last 24 hours): Temp Pulse Resp BP Pulse Ox 98.6 F 70 22 178/81 H 98 08/22/17 07:00 08/22/17 07:00 08/22/17 07:00 08/22/17 18:15 08/22/17 07:00 - Labs Labs: 08/22/17 08:05 08/22/17 08:05 PT 10.7 Seconds (9.9-11.8) 08/16/17 04:45 INR 0.99 (0.93-1.08) 08/16/17 04:45 APTT 27.2 Seconds (23.7-30.8) 08/16/17 04:45 Attending/Attestation - Attestation I have personally seen and examined this patient.: Yes I have fully participated in the care of the patient.: Yes I have reviewed all pertinent clinical information, including history, physical exam and plan: Yes Notes (Text): 08/25/17 12:18 Patient was seen and examined with medical officer. 57 yrs old Female with PMH of ESRD on HD was admitted to the hospital after dailysis cathter came out.Patient is SP bedside R Femoral temp Dialysis catheter placement 08/16/17, and had dialysis done, she had seizure? during dialysis yesterday, was post ictal, We will start patient on on Keppra. We will get Neurology consult. Podiatry consult is pending for right hallux infection.. Management plan was discussed in detail with patient Education was provided.
[2017-08-17] MEDS: levoFLOXacin 250 mg in D5W 250 MG/50 ML BAG IVPB SCH (14:12)
[2017-08-17] MEDS: Multivitamin Vitamin B Complex (Nephro-Vite) Tab PO SCH (14:14)
--- NOTE | 2017-08-17 14:15 | CON ---
HISTORY OF PRESENT ILLNESS: A 57-year-old diabetic female, seen at bedside for consultation, evaluation and management of a right diabetic great toe ulceration. The patient reports a history of having her right great toe callus scraped while at the nail salon approximately 1 month ago. She has subsequently gone on to have redness and swelling in the toe, which now presents with a full-thickness diabetic ulceration. The patient was admitted yesterday for dislodged PermCath. PAST MEDICAL HISTORY: The patient's medical history is significant for longstanding insulin-dependent diabetic with neuropathy, end-stage renal disease, hypercholesterolemia, hypertension, peripheral edema, hemodialysis 3 days a week, hypokalemia and cataracts. PAST SURGICAL HISTORY: Includes , coronary stenting, cardiac catheterization. ALLERGIES: THE PATIENT HAS NO KNOWN DRUG ALLERGIES. MEDICATIONS: Include Lipitor, Norvasc, Neurontin, Humalog, Lopressor, Protonix, Diovan, B complex and heparin. SOCIAL HISTORY: The patient denies any illicit drug use. Never smoked. Denies alcohol usage. FAMILY HISTORY: Remarkable for diabetes. VITAL SIGNS: Revealed a temperature of 98.9, pulse rate of 79, blood pressure of 139/59 and respiratory rate of 20. LABORATORY FINDINGS: Revealed a white count 13.2, hemoglobin of 7.5, hematocrit of 24.3 and platelet count of 291. Her ESR is elevated at 116. There is no microbiology report of the toe. X-rays taken of the right foot reveal no radiographic evidence of cortical destruction to suggest osteomyelitis at the right distal phalanges; however, there is noted to be significant soft tissue swelling. EXTREMITIES: Weakly palpable dorsalis pedis pulse and nonpalpable posterior tibial pulse noted bilaterally. Weakly palpable popliteal pulse noted bilaterally. The patient is unable to detect 5.07 g monofilament wire testing bilaterally. Lower extremity skin presents thin, shining discolored bilaterally. There is noted to be a full-thickness ulceration at the plantar aspect of the right hallux. Base of the ulcer is primarily fibrotic. The wound does not probe to bone. There is noted to be malodor with no purulence. There are no signs of underlying abscess formation. The entire digit is edematous and erythematous. There are no signs of ascending cellulitis. ASSESSMENT: Diabetic ulceration to the right great toe, osteomyelitis must be ruled out. PLAN: The patient's x-rays were reviewed which show no radiographic evidence of cortical destruction; however, clinically, the toe presents with possible osteomyelitis. We will order an MRI without contrast for further specification. There is noted to be Monckeberg's calcifications on x-ray. Consult with Dr. Mello Bear to evaluate arterial Dopplers which will be ordered today. Culture was taken and submitted for sensitivities. Recommend infectious disease consult immediately to evaluate culture and sensitivity results and prescribe accordingly. The wound will be cleansed with normal sterile saline. We will apply Iodosorb cream and a dry sterile dressing. Surgical shoe was ordered to offload the area. Briefly explained to the patient that we have to determine whether her infection is in her bone or whether it is confined to the soft tissues. We will await MRI results and plan accordingly. We will wait for vascular and infectious disease input. The patient will be seen and followed daily. Nestor Mcdaniel DPM
--- NOTE | 2017-08-17 15:04 | MRI ---
PROCEDURE: MRI of the right foot without contrast HISTORY: diabetic right great toe ulcer COMPARISON: Comparison is made to the x-ray of the right foot/[facility] 2 dated 08/16/2017 TECHNIQUE: Axial coronal and sagittal MRI images of the right foot were obtained without contrast administration. FINDINGS: This study is limited due to patient's motion. There is diffuse bone marrow edema at the distal phalanx of the right big toe. There is cortical erosion at the distal plantar aspect of the distal phalanx right big toe. Findings suspicious for osteomyelitis. The rest of the visualized osseous structure of the right foot demonstrate normal bone marrow signal without evidence of cortical destruction or bony lesion. No evidence of acute pathology in the visualized joints of the right foot. IMPRESSION: Limited study due to the patient's motion. Diffuse bone marrow hyperintense signal and cortical erosion at the distal phalanx of the right big toe suspicious for osteomyelitis.
--- NOTE | 2017-08-17 15:36 | CON ---
RENAL CONSULTATION DATE: LOCATION: The patient is located in [facility] [address], room 571, bed 1. REQUESTED BY: Enedina Chau MD REASON FOR THE RENAL CONSULTATION: End-stage renal disease, hyperkalemia, and dislodged Perm-A-cath. HISTORY OF PRESENT ILLNESS: Mrs. Bettencourt is a 57-year-old obese [place] female with past medical history significant for long standing hypertension, diabetes, proteinuria, coronary artery disease, status post stents, end-stage renal disease, and CVA who was on hemodialysis 3 times a week for the last 3 months. She was brought to the [facility] after the patient was found to have bleeding from the Perm-A-cath and apparently Perm-A-cath was dislodged and Perm-A-cath was removed. The patient was also found to have hyperkalemia. Denies any chest pain or palpitation. Denies any fever or cough. No abdominal pain. No nausea, vomiting, or diarrhea. No edema of the legs. No dysuria or frequency. Her last hemodialysis in [facility] [place] was on . PAST MEDICAL HISTORY: Significant for longstanding hypertension, diabetes, hyperlipidemia, end-stage renal disease, coronary artery disease, and CVA. PAST SURGICAL HISTORY: Status post coronary stents in the past and also status post right internal jugular Perm-A-cath placement few months ago. ALLERGIES: NO KNOWN DRUG ALLERGIES. SOCIAL HISTORY: No smoking. No alcohol. No drugs. PERSONAL HISTORY: She is and she has a very supportive family. FAMILY HISTORY: Not significant. CURRENT MEDICATIONS: Include as follows; aspirin 81 mg daily, Diovan 320 mg p.o. daily, heparin 5000 units subcutaneously q.12 hours, Humalog sliding scale, Lipitor 40 mg at bedtime, metoprolol 25 mg p.o. q.12 hours, Nephro-Callie 1 tablet daily, Neurontin 100 mg p.o. daily, amlodipine 10 mg p.o. daily, PhosLo 667 mg p.o. t.i.d. with meals, Protonix 40 mg p.o., vancomycin 1 g q.12 hours, and Zosyn 2.25 g q.12 hours. REVIEW OF SYSTEMS: Significant for dislodge of Perm-A-cath and bleeding from the Perm-A-cath. All other review of systems reviewed and negative. PHYSICAL EXAMINATION: GENERAL: Mrs. Bettencourt is a 57-year-old [place] female, obese, well-built, well-nourished, and not in acute distress. VITAL SIGNS: As follows; blood pressure 140/59, pulse 78, respirations 20, temperature 98.8, and T-max is 98.8. Height is 5 feet and weight is 171 pounds. HEENT: Pupils normal and reactive to light and accommodation. Conjunctivae pink. Sclerae anicteric. Tongue is moist. Trachea is midline. No thyroid enlargement. LUNGS: Symmetrical on both side. Bilateral breath sounds present. Clear on auscultation. Normal for palpation and percussion. CARDIOVASCULAR: Sproul at the fifth intercostal space, midclavicular line. S1 and S2 audible. No murmur or gallop. ABDOMEN: Normal in appearance, soft and tympanic. No guarding. No rigidity. No hepatosplenomegaly. CENTRAL NERVOUS SYSTEM: The patient is alert, awake, and oriented x3. Nonfocal neuro examination. Cranial nerves II through XII grossly intact. Sensory and motor system is within normal limits. EXTREMITIES: No cyanosis. No clubbing. No edema. LABORATORY DATA: Include as follows: As of 08/16/2017 at 04:45 a.m., WBC 10.3, hemoglobin 8.8, hematocrit is 28.1 and platelets 391. As of 08/16/2017 at 12:45 p.m., WBC 12.7, hemoglobin is 8.2, hematocrit is 26.6, and platelets 357. PT 10.7 and PTT 27.2. Chem-7 as of 08/16/2017 at 04:45 a.m.; sodium 136, potassium 5.5, chloride 97, CO2 of 25, BUN 58, creatinine 7.5, glucose 246, calcium 8.9, phosphorous 7.6, and magnesium 2.2. Total bili 0.4, AST 24, ALT 20, alkaline phosphatase 114, total protein 6.6, and albumin 3.2. Repeat labs at 12:45 p.m.; sodium 135, potassium is 6, chloride 97, CO2 26, BUN 61, creatinine 8.7, glucose 197, calcium 9.2. Total bili 0.4. AST 28, ALT 21, alkaline phosphatase 100, total protein 6.1, and albumin is 3.3. chest x-ray as of 08/16/2017; haziness overlying the right lung of the likely artifact pneumonia is suspected. Repeat 2 views study advised. No significant pleural effusion identified. No pneumothorax apparent. Cardiovascular normal. Osseous structures, no significant abnormality. Visualize the upper abdomen normal. X-ray of the 08/16/2017, impression of soft tissue swelling without acute articular osseous abnormality, x-ray of the right great toe. ASSESSMENT AND PLAN: In summary, Mrs. Bettencourt is a 57-year-old obese, [place] female with history of hypertension, diabetes, hyperlipidemia, coronary artery disease, end-stage renal disease, cerebrovascular accident, questionable paroxysmal atrial fibrillation, was admitted after dislodging Perm-A-cath bleeding from the Perm-A-cath site. The patient was found with dislodged catheter, which was removed and with hyperkalemia, status post right femoral vein catheter placement by surgery resident. 1. End-stage renal disease. Continue hemodialysis 3 times a week, Friday, , and Friday. 2. Hyperkalemia secondary to end-stage renal disease, cannot rule out noncompliance with diet. 3. Hypertension. 4. Diabetes. 5. Dislodged Perm-A-cath. The patient had right femoral catheter placement by the surgery team. We will schedule for hemodialysis as soon as possible notified at the dialysis unit and consent obtained for hemodialysis. Follow up with the surgery for Perm-A-cath placement. The patient will need arteriovenous fistula also. We will follow with you. Thank you for allowing me to participate in your patient's care. I will discuss with the surgical team in rounds. Anna Haji MD
[2017-08-17] MEDS: levETIRAcetam 500mg IVPB 500 MG/100 ML BAG IVPB SCH (21:12)
[2017-08-18] MEDS: Pantoprazole 40 mg EC Tab PO SCH (05:43)
[2017-08-18 07:15] LABS: BASO # 0.04 K/mm3 (0.0-2.0); BASO % 0.4 % (0.0-3.0); EOS # 0.4 (0.0-0.7); EOS % 4.4 % (1.5-5.0); GRAN # 6.69 (1.4-6.5); GRAN % 68.7 % (50.0-68.0); LYMPH % 20.5 % (22.0-35.0); MEAN CELL VOLUME 86.9 fl (80.0-105.0); MEAN CORPUSCULAR HEMOGLOBIN 27.3 pg (25.0-35.0); MEAN CORPUSCULAR HGB CONC 31.5 g/dl (31.0-37.0); MEAN PLATELET VOLUME 8.8 fl (7.0-11.0); MONO # 0.6 (0.1-0.6); RED CELL DISTRIBUTION WIDTH 16.6 % (11.5-14.5); WHITE BLOOD COUNT 9.7 10^3/ul (4.5-11.0)
[2017-08-18 07:37] LABS: HEMATOCRIT 23.2 % (36.0-48.0)
[2017-08-18 07:41] LABS: ALB/GLOB RATIO 1.1 (1.1-1.8); BILIRUBIN,TOTAL 0.4 mg/dL (0.2-1.3); CALCIUM 8.5 mg/dL (8.4-10.5); MAGNESIUM 2.2 mg/dL (1.7-2.2); TOTAL PROTEIN 6.6 g/dL (5.8-8.3)
[2017-08-18 07:47] LABS: PHOSPHOROUS 8.3 mg/dL (2.5-4.5)
[2017-08-18 07:58] LABS: POTASSIUM 5.9 mmol/L (3.6-5.0)
[2017-08-18] MEDS: Insulin Lispro (humaLOG) LOW Coverage SC SCH ×4 (08:21→22:46)
--- NOTE | 2017-08-18 09:19 | CP.PCM.PN ---
Subjective - Date & Time of Evaluation Date of Evaluation: 08/18/17 Time of Evaluation: 09:13 - Subjective Subjective: Surgery progress note for Dr. Yeung Patient seen and examined at bedside. Patient resting comfortably in bed with no new complaints at this time. Patient had no acute events over night. She says she had dialysis yesterday through the new catheter in her right groin without any problems. She denies pain or irritation in that area. Patient also denies fever, chills, CP/SOB, AP/N/V/D/C. Objective - Vital Signs/Intake and Output Vital Signs (last 24 hours): Temp Pulse Resp BP Pulse Ox 98.0 F 76 20 141/67 98 08/18/17 07:30 08/18/17 07:30 08/18/17 07:30 08/18/17 07:30 08/18/17 07:30 Intake and Output: 08/18/17 08/18/17 06:59 18:59 Intake Total 840 Balance 840 - Medications Medications: Current Medications Amlodipine Besylate (Norvasc) 10 mg PO DAILY [facility] Last Admin: 08/17/17 14:15 Dose: 10 mg Aspirin (Aspirin Chewable) 81 mg PO DAILY [facility] Last Admin: 08/17/17 14:14 Dose: 81 mg Atorvastatin Calcium (Lipitor) 40 mg PO HS [facility] Last Admin: 08/17/17 21:12 Dose: 40 mg Cadexomer Iodine (Iodosorb) 0 gm TOP DAILY [facility] Calcium Acetate (Phoslo) 667 mg PO WM [facility] Last Admin: 08/18/17 08:22 Dose: 667 mg Gabapentin (Neurontin) 100 mg PO DAILY [facility] PRN Reason: Protocol Last Admin: 08/17/17 13:01 Dose: 100 mg Heparin Sodium (Porcine) (Heparin) 5,000 units SC Q12 [facility] PRN Reason: Protocol Last Admin: 08/17/17 21:11 Dose: 5,000 units Levofloxacin/Dextrose (Levaquin 250mg) 250 mg in 50 mls @ 50 mls/hr IVPB DAILY [facility] Last Admin: 08/17/17 14:12 Dose: 50 mls/hr Levetiracetam (Keppra 500mg Ivpb) 500 mg in 100 mls @ 400 mls/hr IVPB Q12 [facility] Last Admin: 08/17/17 21:12 Dose: 400 mls/hr Insulin Human Lispro (Humalog Low) 0 units SC ACHS [facility] PRN Reason: Protocol Last Admin: 08/18/17 08:21 Dose: 2 units Metoprolol Tartrate (Lopressor) 25 mg PO Q12H [facility] Last Admin: 08/18/17 05:46 Dose: 25 mg Pantoprazole Sodium (Protonix Ec Tab) 40 mg PO 0600 [facility] Last Admin: 08/18/17 05:43 Dose: 40 mg Valsartan (Diovan) 320 mg PO DAILY [facility] Last Admin: 08/17/17 14:15 Dose: 320 mg Vitamin B Complex/Vit C/Folic Acid (Nephro-Callie) 1 tab PO DAILY [facility] Last Admin: 08/17/17 14:14 Dose: 1 tab - Labs Labs: 08/18/17 06:45 08/18/17 06:45 PT 10.7 Seconds (9.9-11.8) 08/16/17 04:45 INR 0.99 (0.93-1.08) 08/16/17 04:45 APTT 27.2 Seconds (23.7-30.8) 08/16/17 04:45 - Constitutional Appears: Non-toxic, No Acute Distress - Head Exam Head Exam: NORMAL INSPECTION - Eye Exam Eye Exam: EOMI - ENT Exam ENT Exam: Mucous Membranes Moist - Respiratory Exam Respiratory Exam: NORMAL BREATHING PATTERN. absent: Accessory Muscle Use, Respiratory Distress - Cardiovascular Exam Cardiovascular Exam: REGULAR RHYTHM. absent: Bradycardia, Tachycardia - GI/Abdominal Exam GI & Abdominal Exam: Soft. absent: Distended, Tenderness - Extremities Exam Extremities Exam: absent: Joint Swelling Additional comments: dialysis catheter in right groin in place without bleeding, erythema, or swelling - Neurological Exam Neurological Exam: Alert, Awake - Psychiatric Exam Psychiatric exam: Normal Affect, Normal Mood - Skin Skin Exam: Dry, Normal Color, Warm Assessment and Plan - Assessment and Plan (Free Text) Assessment: 57yo F with ESRD on HD s/p bedside R Femoral temp Dialysis catheter 08/16/17. Plan: - Dressing changes prn - Dialysis tomorrow - OR for permacatfriday - Medical management as per primary team - Further recs per Dr. Gamal Urrutia PGY1
[2017-08-18] MEDS: Multivitamin Vitamin B Complex (Nephro-Vite) Tab PO SCH (10:29)
[2017-08-18] MEDS: levoFLOXacin 250 mg in D5W 250 MG/50 ML BAG IVPB SCH (10:30)
--- NOTE | 2017-08-18 10:41 | PN ---
DATE: Central line was placed in the left groin for dialysis. Note that the MRI of the foot shows osteomyelitis. This was done . The patient has a new seizure and that is being worked up. We will delay placement of a permanent catheter until that point. The patient is known to have infection of the foot. This might need a PICC line. Darien Yeung MD
[2017-08-18] MEDS: levETIRAcetam 500mg IVPB 500 MG/100 ML BAG IVPB SCH ×2 (12:56→21:49)
[2017-08-18] MEDS: CADEXOMER IODINE 0.9% GEL 10G TOP SCH (13:14)
--- NOTE | 2017-08-18 13:39 | CP.PCM.PN ---
Subjective - Date & Time of Evaluation Date of Evaluation: 08/18/17 Time of Evaluation: 13:37 - Subjective Subjective: pt is seen and examined, follow up consult is dictated #[id number] for hd in am, TTS s/p hypotension at the end of hd txon friday, sbp dropped to 94 and then pt started ? shaking, hd stopped and blood returned, pt was back to normal as per head charger Molisa today. i was not aware of pt's change in condition during hd on friday. no history of lOC for perma cath placement on friday as per SURGERY consider IR to place perma cath if surgery is very busy Objective - Vital Signs/Intake and Output Vital Signs (last 24 hours): Temp Pulse Resp BP Pulse Ox 98.0 F 76 20 153/67 H 98 08/18/17 07:30 08/18/17 07:30 08/18/17 07:30 08/18/17 10:29 08/18/17 07:30 Intake and Output: 08/18/17 08/18/17 06:59 18:59 Intake Total 840 260 Balance 840 260 - Medications Medications: Current Medications Amlodipine Besylate (Norvasc) 10 mg PO DAILY [facility] Last Admin: 08/18/17 10:29 Dose: 10 mg Aspirin (Aspirin Chewable) 81 mg PO DAILY [facility] Last Admin: 08/18/17 10:29 Dose: 81 mg Atorvastatin Calcium (Lipitor) 40 mg PO HS [facility] Last Admin: 08/17/17 21:12 Dose: 40 mg Cadexomer Iodine (Iodosorb) 0 gm TOP DAILY [facility] Last Admin: 08/18/17 13:14 Dose: 10 gm Calcium Acetate (Phoslo) 667 mg PO WM [facility] Last Admin: 08/18/17 13:02 Dose: 667 mg Gabapentin (Neurontin) 100 mg PO DAILY [facility] PRN Reason: Protocol Last Admin: 08/18/17 10:29 Dose: 100 mg Heparin Sodium (Porcine) (Heparin) 5,000 units SC Q12 [facility] PRN Reason: Protocol Last Admin: 08/18/17 10:29 Dose: 5,000 units Levofloxacin/Dextrose (Levaquin 250mg) 250 mg in 50 mls @ 50 mls/hr IVPB DAILY [facility] Last Admin: 08/18/17 10:30 Dose: 50 mls/hr Levetiracetam (Keppra 500mg Ivpb) 500 mg in 100 mls @ 400 mls/hr IVPB Q12 [facility] Last Admin: 08/18/17 12:56 Dose: 400 mls/hr Insulin Human Lispro (Humalog Low) 0 units SC ACHS [facility] PRN Reason: Protocol Last Admin: 08/18/17 13:02 Dose: 2 units Metoprolol Tartrate (Lopressor) 25 mg PO Q12H [facility] Last Admin: 08/18/17 05:46 Dose: 25 mg Pantoprazole Sodium (Protonix Ec Tab) 40 mg PO 0600 [facility] Last Admin: 08/18/17 05:43 Dose: 40 mg Valsartan (Diovan) 320 mg PO DAILY [facility] Last Admin: 08/18/17 10:30 Dose: 320 mg Vitamin B Complex/Vit C/Folic Acid (Nephro-Callie) 1 tab PO DAILY [facility] Last Admin: 08/18/17 10:29 Dose: 1 tab - Labs Labs: 08/18/17 06:45 08/18/17 06:45 PT 10.7 Seconds (9.9-11.8) 08/16/17 04:45 INR 0.99 (0.93-1.08) 08/16/17 04:45 APTT 27.2 Seconds (23.7-30.8) 08/16/17 04:45
[2017-08-18] MEDS ORDERED: Sod Polystyrene Sulf 15 gm/60 ml Susp PO ONE (13:48)
--- NOTE | 2017-08-18 14:15 | CP.PCM.CON ---
<Fanta Winter - Last Filed: 08/18/17 16:10> History of Present Illness - History of Present Illness History of Present Illness: Neurology Consult Note for Braxton Martines PGY2 Reason for consult: Seizure after dialysis This is a 57Y F with PMH CVA x2, CAD s/p stents, HTN, DM and ESRD on HD who was admitted for her tunnel dialysis catheter falling out. Patient's catheter was replaced without any issue. Patient received HD this weekend and was noted to have seizure activity by the dialysis nurse. Patient reports she did not remember the episode and did have loss of consciousness. She has never had a seizure before. She denies having any bowel/bladder incontinence or tongue biting during this episode. Upon interviewing nursing staff, there was no written description of the seizure activity. Patient is resting in bed comfortably. She is able to ambulate with assistance. She denies having any vision changes, CP, SOB, n/v/d, numbness/tingling, dizziness, weakness, fever or chills. Patient was noted to have R 1st toe osteomyelitis during this hospitalization. PMH: CVA x2, CAD, HTN, DM and ESRD PSH: Cardiac stents, permacath Home meds: As per MAR All: NKDA SH: Denies EtOH, tobacco or drug use. Lives with family Review of Systems - Review of Systems All systems: reviewed and no additional remarkable complaints except Review of Systems: + seizure Past Patient History - Past Social History Smoking Status: Never Smoked Alcohol: None Drugs: Denies Home Situation {Lives}: With Family - CARDIAC Hx Cardiac Disorders: Yes Hx Hypercholesterolemia: Yes Hx Hypertension: Yes Hx Peripheral Edema: Yes (ble +1 pitting) - PULMONARY Hx Respiratory Disorders: No - NEUROLOGICAL Hx Neurological Disorder: Yes Hx Transient Ischemic Attacks (TIA): Yes (12/2016 no residual) - HEENT Hx HEENT Problems: Yes ([place] r ear does not use hearing aid) Hx Cataracts: Yes (b/l sx) - RENAL Hx Chronic Kidney Disease: Yes Hx Dialysis: Yes (started hd 12/2016) Date of Last Dialysis Treatment: 08/14/17 Other/Comment: dialysis at 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 - MUSCULOSKELETAL/RHEUMATOLOGICAL Hx Falls: No Hx Unsteady Gait: Yes (walker) - GASTROINTESTINAL Hx Gastrointestinal Disorders: No - GENITOURINARY/GYNECOLOGICAL Hx Genitourinary Disorders: No - PSYCHIATRIC Hx Psychophysiologic Disorder: No Hx Substance Use: No - SURGICAL HISTORY Hx Surgeries: Yes (c section x2) Hx Cardiac Catheterization: Yes Hx Coronary Stent: Yes (x1) Meds Allergies/Adverse Reactions: Allergies Allergy/AdvReac Type Severity Reaction Status Date / Time No Known Drug Allergies Allergy Mild none Verified 08/16/17 04:01 - Medications Medications: Current Medications Amlodipine Besylate (Norvasc) 10 mg PO DAILY [facility] Last Admin: 08/18/17 10:29 Dose: 10 mg Aspirin (Aspirin Chewable) 81 mg PO DAILY [facility] Last Admin: 08/18/17 10:29 Dose: 81 mg Atorvastatin Calcium (Lipitor) 40 mg PO HS [facility] Last Admin: 08/17/17 21:12 Dose: 40 mg Cadexomer Iodine (Iodosorb) 0 gm TOP DAILY [facility] Last Admin: 08/18/17 13:14 Dose: 10 gm Calcium Acetate (Phoslo) 667 mg PO WM [facility] Last Admin: 08/18/17 13:02 Dose: 667 mg Darbepoetin Ralph (Aranesp) 60 mcg IVP ONCE ONE Stop: 08/19/17 08:01 Doxercalciferol (Hectorol) 2 mcg IV TTS [facility] Gabapentin (Neurontin) 100 mg PO DAILY [facility] PRN Reason: Protocol Last Admin: 08/18/17 10:29 Dose: 100 mg Heparin Sodium (Porcine) (Heparin) 5,000 units SC Q12 [facility] PRN Reason: Protocol Last Admin: 08/18/17 10:29 Dose: 5,000 units Levofloxacin/Dextrose (Levaquin 250mg) 250 mg in 50 mls @ 50 mls/hr IVPB DAILY [facility] Last Admin: 08/18/17 10:30 Dose: 50 mls/hr Levetiracetam (Keppra 500mg Ivpb) 500 mg in 100 mls @ 400 mls/hr IVPB Q12 [facility] Last Admin: 08/18/17 12:56 Dose: 400 mls/hr Insulin Human Lispro (Humalog Low) 0 units SC ACHS [facility] PRN Reason: Protocol Last Admin: 08/18/17 13:02 Dose: 2 units Metoprolol Tartrate (Lopressor) 25 mg PO Q12H [facility] Last Admin: 08/18/17 05:46 Dose: 25 mg Pantoprazole Sodium (Protonix Ec Tab) 40 mg PO 0600 [facility] Last Admin: 08/18/17 05:43 Dose: 40 mg Valsartan (Diovan) 320 mg PO DAILY [facility] Last Admin: 08/18/17 10:30 Dose: 320 mg Vitamin B Complex/Vit C/Folic Acid (Nephro-Callie) 1 tab PO DAILY [facility] Last Admin: 08/18/17 10:29 Dose: 1 tab Physical Exam - Constitutional Appears: No Acute Distress - Head Exam Head Exam: ATRAUMATIC, NORMAL INSPECTION, NORMOCEPHALIC - Eye Exam Eye Exam: Normal appearance, PERRL Pupil Exam: NORMAL ACCOMODATION, PERRL - ENT Exam ENT Exam: Mucous Membranes Moist - Respiratory Exam Respiratory Exam: Clear to Auscultation Bilateral, NORMAL BREATHING PATTERN. absent: Rales, Rhonchi, Wheezes - Cardiovascular Exam Cardiovascular Exam: REGULAR RHYTHM, +S1, +S2. absent: Gallop, Rubs, Systolic Murmur - GI/Abdominal Exam GI & Abdominal Exam: Normal Bowel Sounds, Soft. absent: Rebound, Rigid, Tenderness - Extremities Exam Extremities exam: Positive for: normal inspection. Negative for: calf tenderness, pedal edema - Neurological Exam Neurological exam: Alert, CN II-XII Intact, Normal Gait (with assistance ), Oriented x3 - Psychiatric Exam Psychiatric exam: Normal Affect, Normal Mood - Skin Skin Exam: Dry, Intact, Normal Color, Warm Results - Vital Signs Recent Vital Signs: Last Vital Signs Temp 98.0 F 08/18/17 07:30 Pulse 76 08/18/17 07:30 Resp 20 08/18/17 07:30 BP 153/67 H 08/18/17 10:29 Pulse Ox 98 08/18/17 07:30 - Labs Result Diagrams: 08/18/17 06:45 08/18/17 06:45 Labs: Laboratory Results - last 24 hr 08/16/17 08/17/17 08/17/17 21:25 16:11 20:59 WBC RBC Hgb Hct MCV MCH MCHC RDW Plt Count MPV Gran % Lymph % (Auto) [place] % (Auto) Eos % (Auto) Baso % (Auto) Gran # Lymph # [place] # Eos # Baso # Sodium Potassium Chloride Carbon Dioxide Anion Gap BUN Creatinine Est GFR ( Amer) Est GFR (Non-Af Amer) POC Glucose (mg/dL) 196 H 226 H 280 H Random Glucose Calcium Phosphorus Magnesium Total Bilirubin AST ALT Alkaline Phosphatase Total Protein Albumin Globulin Albumin/Globulin Ratio 08/18/17 08/18/17 08/18/17 06:45 06:45 07:37 WBC 9.7 D RBC 2.67 L Hgb 7.3 L Hct 23.2 L MCV 86.9 MCH 27.3 MCHC 31.5 RDW 16.6 H Plt Count 320 MPV 8.8 Gran % 68.7 H Lymph % (Auto) 20.5 L [place] % (Auto) 6.0 Eos % (Auto) 4.4 Baso % (Auto) 0.4 Gran # 6.69 H Lymph # 2.0 [place] # 0.6 Eos # 0.4 Baso # 0.04 Sodium 132 Potassium 5.9 H* Chloride 95 Carbon Dioxide 25 Anion Gap 18 BUN 58 H Creatinine 8.9 H* D Est GFR ( Amer) 6 Est GFR (Non-Af Amer) 5 POC Glucose (mg/dL) 236 H Random Glucose 203 H Calcium 8.5 Phosphorus 8.3 H Magnesium 2.2 Total Bilirubin 0.4 AST 30 ALT 26 Alkaline Phosphatase 82 Total Protein 6.6 Albumin 3.5 Globulin 3.2 Albumin/Globulin Ratio 1.1 08/18/17 12:49 WBC RBC Hgb Hct MCV MCH MCHC RDW Plt Count MPV Gran % Lymph % (Auto) [place] % (Auto) Eos % (Auto) Baso % (Auto) Gran # Lymph # [place] # Eos # Baso # Sodium Potassium Chloride Carbon Dioxide Anion Gap BUN Creatinine Est GFR ( Amer) Est GFR (Non-Af Amer) POC Glucose (mg/dL) 235 H Random Glucose Calcium Phosphorus Magnesium Total Bilirubin AST ALT Alkaline Phosphatase Total Protein Albumin Globulin Albumin/Globulin Ratio Assessment & Plan - Assessment and Plan (Free Text) Assessment: This is a 57Y F with PMH CVA x2, CAD s/p stents, HTN, DM and ESRD on HD who was admitted for her tunnel dialysis catheter falling out that was replaced who was also found to have R 1st toe osteomyelitis. Patient had HD this weekend with seizure like activity after HD. Seizure can be secondary to metabolic derangement after dialysis. Head CT was noted to be negative for acute pathology. Plan: - Continue Keppra 500mg BID for seizure ppx- can be stopped upon d/c - Maintain euglycemia 140-180s - Avoid sudden drops in BP - Physical therapy - Continue to monitor electrolytes Thank you for this consultation. Patient can follow up with Dr. Cabrera as outpatient. Please re-consult if needed. Case seen, discussed and reviewed with attending, Dr. Cabrera. Braxton Winter PGY2 - Date & Time Date: 08/18/17 Time: 14:19 <Lloyd Cabrera - Last Filed: 08/18/17 16:27> Meds - Medications Medications: Current Medications Amlodipine Besylate (Norvasc) 10 mg PO DAILY [facility] Last Admin: 08/18/17 10:29 Dose: 10 mg Aspirin (Aspirin Chewable) 81 mg PO DAILY [facility] Last Admin: 08/18/17 10:29 Dose: 81 mg Atorvastatin Calcium (Lipitor) 40 mg PO HS [facility] Last Admin: 08/17/17 21:12 Dose: 40 mg Cadexomer Iodine (Iodosorb) 0 gm TOP DAILY [facility] Last Admin: 08/18/17 13:14 Dose: 10 gm Calcium Acetate (Phoslo) 667 mg PO WM [facility] Last Admin: 08/18/17 13:02 Dose: 667 mg Darbepoetin Ralph (Aranesp) 60 mcg IVP ONCE ONE Stop: 08/19/17 08:01 Doxercalciferol (Hectorol) 2 mcg IV TTS [facility] Gabapentin (Neurontin) 100 mg PO DAILY [facility] PRN Reason: Protocol Last Admin: 08/18/17 10:29 Dose: 100 mg Heparin Sodium (Porcine) (Heparin) 5,000 units SC Q12 [facility] PRN Reason: Protocol Last Admin: 08/18/17 10:29 Dose: 5,000 units Levetiracetam (Keppra 500mg Ivpb) 500 mg in 100 mls @ 400 mls/hr IVPB Q12 [facility] Last Admin: 08/18/17 12:56 Dose: 400 mls/hr Linezolid (Zyvox 600mg/300ml D5w) 600 mg in 300 mls @ 200 mls/hr IVPB Q12 [facility] PRN Reason: Protocol Stop: 08/26/17 22:01 Insulin Human Lispro (Humalog Low) 0 units SC ACHS [facility] PRN Reason: Protocol Last Admin: 08/18/17 13:02 Dose: 2 units Metoprolol Tartrate (Lopressor) 25 mg PO Q12H [facility] Last Admin: 08/18/17 05:46 Dose: 25 mg Pantoprazole Sodium (Protonix Ec Tab) 40 mg PO 0600 [facility] Last Admin: 08/18/17 05:43 Dose: 40 mg Valsartan (Diovan) 320 mg PO DAILY [facility] Last Admin: 08/18/17 10:30 Dose: 320 mg Vitamin B Complex/Vit C/Folic Acid (Nephro-Callie) 1 tab PO DAILY [facility] Last Admin: 08/18/17 10:29 Dose: 1 tab Results - Vital Signs Recent Vital Signs: Last Vital Signs Temp 98.0 F 08/18/17 07:30 Pulse 76 08/18/17 07:30 Resp 20 08/18/17 07:30 BP 153/67 H 08/18/17 10:29 Pulse Ox 98 08/18/17 07:30 - Labs Result Diagrams: 08/18/17 06:45 08/18/17 06:45 Labs: Laboratory Results - last 24 hr 08/16/17 08/17/17 08/17/17 21:25 16:11 20:59 WBC RBC Hgb Hct MCV MCH MCHC RDW Plt Count MPV Gran % Lymph % (Auto) [place] % (Auto) Eos % (Auto) Baso % (Auto) Gran # Lymph # [place] # Eos # Baso # Sodium Potassium Chloride Carbon Dioxide Anion Gap BUN Creatinine Est GFR ( Amer) Est GFR (Non-Af Amer) POC Glucose (mg/dL) 196 H 226 H 280 H Random Glucose Calcium Phosphorus Magnesium Total Bilirubin AST ALT Alkaline Phosphatase Total Protein Albumin Globulin Albumin/Globulin Ratio 08/18/17 08/18/17 08/18/17 06:45 06:45 07:37 WBC 9.7 D RBC 2.67 L Hgb 7.3 L Hct 23.2 L MCV 86.9 MCH 27.3 MCHC 31.5 RDW 16.6 H Plt Count 320 MPV 8.8 Gran % 68.7 H Lymph % (Auto) 20.5 L [place] % (Auto) 6.0 Eos % (Auto) 4.4 Baso % (Auto) 0.4 Gran # 6.69 H Lymph # 2.0 [place] # 0.6 Eos # 0.4 Baso # 0.04 Sodium 132 Potassium 5.9 H* Chloride 95 Carbon Dioxide 25 Anion Gap 18 BUN 58 H Creatinine 8.9 H* D Est GFR ( Amer) 6 Est GFR (Non-Af Amer) 5 POC Glucose (mg/dL) 236 H Random Glucose 203 H Calcium 8.5 Phosphorus 8.3 H Magnesium 2.2 Total Bilirubin 0.4 AST 30 ALT 26 Alkaline Phosphatase 82 Total Protein 6.6 Albumin 3.5 Globulin 3.2 Albumin/Globulin Ratio 1.1 08/18/17 12:49 WBC RBC Hgb Hct MCV MCH MCHC RDW Plt Count MPV Gran % Lymph % (Auto) [place] % (Auto) Eos % (Auto) Baso % (Auto) Gran # Lymph # [place] # Eos # Baso # Sodium Potassium Chloride Carbon Dioxide Anion Gap BUN Creatinine Est GFR ( Amer) Est GFR (Non-Af Amer) POC Glucose (mg/dL) 235 H Random Glucose Calcium Phosphorus Magnesium Total Bilirubin AST ALT Alkaline Phosphatase Total Protein Albumin Globulin Albumin/Globulin Ratio Attending/Attestation - Attestation I have personally seen and examined this patient.: Yes I have fully participated in the care of the patient.: Yes I have reviewed all pertinent clinical information: Yes
--- NOTE | 2017-08-18 15:53 | PN ---
DATE: SUBJECTIVE: A 57-year-old female seen at bedside with her son present. For continued evaluation and management of a right diabetic great toe ulceration. X-rays were negative for osteomyelitis. However, MRI is suspicious for osteomyelitis of the distal phalanges on the right foot OBJECTIVE: VITAL SINGS: Revealed temperature of 98, blood pressure 141/67, respiratory rate of 20 and pulse rate of 76. LABORATORY FINDINGS: Reveal a white count of 9.7 down from 13.2 yesterday. Hemoglobin of 7.3, hematocrit of 23.2, platelet count of 320. ESR is elevated at 116. The culture taken yesterday of the great toe ulceration reveals few Gram-positive cocci preliminarily. MRI taken of the right foot reveals diffuse marrow edema of distal phalanx on the right big toe with cortical erosion which is suspicious for osteomyelitis. EXTREMITIES: With the palpable dorsalis pedis pulse and nonpalpable posterior tibial pulse noted bilaterally with good palpable popliteal pulse noted bilaterally. The patient is unable to detect by 0.07 g monofilament wire testing bilaterally. There is a full thickness ulceration at the plantar aspect of the right hallux. The base of the wound is primarily fibrotic there is no probing to bone. There is no malodor. There is no longer any malodor. There is no signs of underlying abscess formation noted; however, the entire digit is cellulitic with no signs of ascending cellulitis. ASSESSMENT: Full-thickness diabetic ulceration to the right great toe suspicious for osteomyelitis. PLAN: The patient's x-rays and MRI report was reviewed with the patient's son. We are waiting vascular evaluation. Arterial ultrasound was ordered, but was not yet taken. The wound was cleansed with normal sterile saline and application of Iodosorb and dry sterile dressing was applied. I explained to her son at this point that there are two options, one is to remove the toe and the other is to undergo 4 to 6 weeks of IV antibiotics and referred to eradicate the bone infection. I spoke with the son regarding her circulation and I would recommend 4 to 6 weeks of IV antibiotics as the patient has compromised circulatory status and during that time we will aggressively treat with local wound care and if the wound does not heal, we can go no to amputation. Son was amendable to that. We will await vascular and infectious disease input. The patient will be seen and followed daily. Nestor Mcdaniel DPM [facility] # [phone]
--- NOTE | 2017-08-18 16:11 | CP.PCM.PN ---
<Carlos Ignacio - Last Filed: 08/18/17 16:28> Subjective - Date & Time of Evaluation Date of Evaluation: 08/18/17 Time of Evaluation: 11:00 - Subjective Subjective: Medicine Note Pt S&E at bedside this AM. No acute events overnight. Femoral catheter site c/d/ i no erythema or induration. currently AAOx3. Denies F/C CP/SOB N/V/D syncope LOUISE. Objective - Vital Signs/Intake and Output Vital Signs (last 24 hours): Temp Pulse Resp BP Pulse Ox 98.0 F 76 20 153/67 H 98 08/18/17 07:30 08/18/17 07:30 08/18/17 07:30 08/18/17 10:29 08/18/17 07:30 Intake and Output: 08/18/17 08/18/17 06:59 18:59 Intake Total 840 260 Balance 840 260 - Medications Medications: Current Medications Amlodipine Besylate (Norvasc) 10 mg PO DAILY [facility] Last Admin: 08/18/17 10:29 Dose: 10 mg Aspirin (Aspirin Chewable) 81 mg PO DAILY [facility] Last Admin: 08/18/17 10:29 Dose: 81 mg Atorvastatin Calcium (Lipitor) 40 mg PO HS [facility] Last Admin: 08/17/17 21:12 Dose: 40 mg Cadexomer Iodine (Iodosorb) 0 gm TOP DAILY [facility] Last Admin: 08/18/17 13:14 Dose: 10 gm Calcium Acetate (Phoslo) 667 mg PO WM [facility] Last Admin: 08/18/17 13:02 Dose: 667 mg Darbepoetin Ralph (Aranesp) 60 mcg IVP ONCE ONE Stop: 08/19/17 08:01 Doxercalciferol (Hectorol) 2 mcg IV TTS [facility] Gabapentin (Neurontin) 100 mg PO DAILY [facility] PRN Reason: Protocol Last Admin: 08/18/17 10:29 Dose: 100 mg Heparin Sodium (Porcine) (Heparin) 5,000 units SC Q12 [facility] PRN Reason: Protocol Last Admin: 08/18/17 10:29 Dose: 5,000 units Levetiracetam (Keppra 500mg Ivpb) 500 mg in 100 mls @ 400 mls/hr IVPB Q12 [facility] Last Admin: 08/18/17 12:56 Dose: 400 mls/hr Linezolid (Zyvox 600mg/300ml D5w) 600 mg in 300 mls @ 200 mls/hr IVPB Q12 [facility] PRN Reason: Protocol Stop: 08/26/17 22:01 Insulin Human Lispro (Humalog Low) 0 units SC ACHS [facility] PRN Reason: Protocol Last Admin: 08/18/17 13:02 Dose: 2 units Metoprolol Tartrate (Lopressor) 25 mg PO Q12H [facility] Last Admin: 08/18/17 05:46 Dose: 25 mg Pantoprazole Sodium (Protonix Ec Tab) 40 mg PO 0600 [facility] Last Admin: 08/18/17 05:43 Dose: 40 mg Valsartan (Diovan) 320 mg PO DAILY [facility] Last Admin: 08/18/17 10:30 Dose: 320 mg Vitamin B Complex/Vit C/Folic Acid (Nephro-Callie) 1 tab PO DAILY [facility] Last Admin: 08/18/17 10:29 Dose: 1 tab - Labs Labs: 08/18/17 06:45 08/18/17 06:45 PT 10.7 Seconds (9.9-11.8) 08/16/17 04:45 INR 0.99 (0.93-1.08) 08/16/17 04:45 APTT 27.2 Seconds (23.7-30.8) 08/16/17 04:45 - Constitutional Appears: Non-toxic, No Acute Distress - Eye Exam Eye Exam: EOMI. absent: Scleral icterus - ENT Exam ENT Exam: Mucous Membranes Moist - Respiratory Exam Respiratory Exam: NORMAL BREATHING PATTERN. absent: Accessory Muscle Use, Respiratory Distress - Cardiovascular Exam Cardiovascular Exam: +S1, +S2. absent: Bradycardia, Tachycardia - GI/Abdominal Exam GI & Abdominal Exam: Soft, Normal Bowel Sounds. absent: Distended, Firm, Guarding, Tenderness - Extremities Exam Additional comments: Right Hallux Erythematous - Neurological Exam Neurological Exam: Awake, Oriented x3 - Psychiatric Exam Psychiatric exam: Normal Affect - Skin Skin Exam: Dry, Warm Assessment and Plan - Assessment and Plan (Free Text) Assessment: 57 F with multiple co-morbidities presenting with profuse bleeding after dialysis catheter came out, denies pulling it out. Asymptomatic despite profuse blood loss. s/p Femoral Catheter placement and Dialysis on Friday Dialysis Permacat General Surgery c/s: Dr. Yeung Plan to place permacath on Friday ESRD on Dialysis Nephro c/s: Dr. Haji Dialysis TTS Asx hyperkalemic. On K-ex. and creatinine is elevated. HD scheduled for tomorrow Patient had questionable seizure on Friday during Dialysis. Systolic BP went from 162 to 94. Patient started on Keppra. Will monitor closely. Continue home Phoslo and B Complex Seizure Neurology c/s: Dr. Cabrera During Dialysis on Friday BP went from 162 to 94. Rapid movements can occur. Pt started on Keppra Plan to discontinue Keppra upon discharge. R Hallux Infection- OM Pods C/s: [facility]ter ID consulted f/u recs c/w abx Linezolid Blood cx Negative Hx HTN Amlodipine, Valsartan, Metoprolol Hx DM RISS Low Hx CAD s/p Stents Continue home Lipitor, ASA PPX Heparin/Protonix Carlos Ignacio PGY1 <Bo Gutierrez - Last Filed: 08/18/17 17:29> Objective - Vital Signs/Intake and Output Vital Signs (last 24 hours): Temp Pulse Resp BP Pulse Ox 97.6 F 74 20 159/76 H 99 08/18/17 16:00 08/18/17 17:20 08/18/17 16:00 08/18/17 17:20 08/18/17 16:00 Intake and Output: 08/18/17 08/18/17 06:59 18:59 Intake Total 840 260 Balance 840 260 - Medications Medications: Current Medications Amlodipine Besylate (Norvasc) 10 mg PO DAILY [facility] Last Admin: 08/18/17 10:29 Dose: 10 mg Aspirin (Aspirin Chewable) 81 mg PO DAILY [facility] Last Admin: 08/18/17 10:29 Dose: 81 mg Atorvastatin Calcium (Lipitor) 40 mg PO HS [facility] Last Admin: 08/17/17 21:12 Dose: 40 mg Cadexomer Iodine (Iodosorb) 0 gm TOP DAILY [facility] Last Admin: 08/18/17 13:14 Dose: 10 gm Calcium Acetate (Phoslo) 667 mg PO WM [facility] Last Admin: 08/18/17 16:57 Dose: 667 mg Darbepoetin Ralph (Aranesp) 60 mcg IVP ONCE ONE Stop: 08/19/17 08:01 Doxercalciferol (Hectorol) 2 mcg IV TTS [facility] Gabapentin (Neurontin) 100 mg PO DAILY [facility] PRN Reason: Protocol Last Admin: 08/18/17 10:29 Dose: 100 mg Heparin Sodium (Porcine) (Heparin) 5,000 units SC Q12 [facility] PRN Reason: Protocol Last Admin: 08/18/17 10:29 Dose: 5,000 units Levetiracetam (Keppra 500mg Ivpb) 500 mg in 100 mls @ 400 mls/hr IVPB Q12 [facility] Last Admin: 08/18/17 12:56 Dose: 400 mls/hr Linezolid (Zyvox 600mg/300ml D5w) 600 mg in 300 mls @ 200 mls/hr IVPB Q12 [facility] PRN Reason: Protocol Stop: 08/26/17 22:01 Insulin Human Lispro (Humalog Low) 0 units SC ACHS [facility] PRN Reason: Protocol Last Admin: 08/18/17 16:52 Dose: 2 units Metoprolol Tartrate (Lopressor) 25 mg PO Q12H [facility] Last Admin: 08/18/17 17:20 Dose: 25 mg Pantoprazole Sodium (Protonix Ec Tab) 40 mg PO 0600 [facility] Last Admin: 08/18/17 05:43 Dose: 40 mg Valsartan (Diovan) 320 mg PO DAILY [facility] Last Admin: 08/18/17 10:30 Dose: 320 mg Vitamin B Complex/Vit C/Folic Acid (Nephro-Callie) 1 tab PO DAILY [facility] Last Admin: 08/18/17 10:29 Dose: 1 tab - Labs Labs: 08/18/17 06:45 08/18/17 06:45 PT 10.7 Seconds (9.9-11.8) 08/16/17 04:45 INR 0.99 (0.93-1.08) 08/16/17 04:45 APTT 27.2 Seconds (23.7-30.8) 08/16/17 04:45 Attending/Attestation - Attestation I have personally seen and examined this patient.: Yes I have fully participated in the care of the patient.: Yes I have reviewed all pertinent clinical information, including history, physical exam and plan: Yes Notes (Text): 10/09/17 17:25 57 year old female who presented after her dialysis catheter came out. She is s /p femoral catheter placement. Continue with HD as per nephrology. Surgery is also following for evaluation for permacath placement. She is also being seen by podiatry for right hallux infection. MRI reviewed showing osteomyelitis. ID evaluation is requested. Continue with iv antibiotics. Arterial doppler was also done today and IR evaluation was requested. Neurology evaluation was also appreciated for possibly seizure episode on Friday. Patient is started on keppra. Bo Gutierrez MD Hospitalist.
--- NOTE | 2017-08-18 16:12 | US ---
PROCEDURE: Lower extremity LAZARO exam HISTORY: Peripheral vascular disease with pain and left great toe ulceration PHYSICIAN(S): Mello Bear MD. FINDINGS: The exam is limited by calcified distal vessels. The ABIs are The brachial systolic pressures are symmetric. The low thigh pressures are noncompressible. The low thigh PVR waveforms relatively normal. The right calf PVR waveform is normal and augments normally. A left calf PVR waveform is decreased in amplitude compared to the right. This could represent subtle left SFA occlusive disease. The left ankle and metatarsal waveforms are pulsatile but moderately blunted compared to the right. The findings are consistent with bilateral tibial disease. IMPRESSION: 1. Bilateral tibial disease, greater on the left than the right. 2. Possible left SFA occlusive disease. 3. Limited study due to calcified vessels. 4. If clinically indicated, further evaluation can be obtained with a CTA runoff, MRA runoff, or conventional arteriogram.
--- NOTE | 2017-08-18 19:36 | CON ---
DATE: 08/18/2017 TIME: 05:52 p.m. CHIEF COMPLAINT AND HISTORY OF PRESENT ILLNESS: This is a 57-year-old vasculopathic with ischemic/neuropathic ulceration on the plantar surface of the right great toe. The patient was admitted after inadvertant removal of her dialysis catheter. She has been on dialysis since December. Her catheter is to be replaced and she has tentatively been scheduled for upper extremity AV access placement. Her right toe ulceration has been present for a few weeks. There is history of treatment by a flight physician. She states there is some pain associated with ulceration. Denies fever, sweats, and chills. PAST MEDICAL HISTORY: Hypertension, diabetes and end-stage renal disease. PHYSICAL EXAMINATION: EXTREMITIES: She has a palpable right femoral pulse. Her popliteal and distal pulses are absent. There is a callus with ulceration on the plantar aspect of the right great toe. Fibrous tissue is noted. LABORATORY DATA: Plain x-ray revealed no evidence of bone destruction. There is some increased signal in the right distal phalanx on MRI which could represent subtle osteomyelitis. The patient's LAZARO/PVR exam demonstrates bilateral tibial disease and possible left SFA occlusive disease. Distal waveforms are diminished but pulsatile. ASSESSMENT AND PLAN: Most immediate issue is dialysis access and treatment. A tunneled catheter needs to be placed. In addition, arteriovenous access can be performed on this admission. I have left a message with Dr. Mcdaniel concerning the right toe ulceration. My feeling is that the patient can be followed initially in the wound care center and if things do not improve, an arteriogram can be performed. There are no signs of overwhelming infection and her pain is adequately controlled. Mello Bear MD MTDD
[2017-08-18] MEDS: Linezolid 600 mg in D5W 300 ml 600 MG/300 ML BAG IVPB SCH (22:16)
[2017-08-19] MEDS: Pantoprazole 40 mg EC Tab PO SCH (05:29)
[2017-08-19 07:07] LABS: BASO # 0.05 K/mm3 (0.0-2.0); BASO % 0.5 % (0.0-3.0); EOS # 0.5 (0.0-0.7); EOS % 4.7 % (1.5-5.0); GRAN # 6.75 (1.4-6.5); GRAN % 67.1 % (50.0-68.0); HEMATOCRIT 24.1 % (36.0-48.0); LYMPH # 2.3 (1.2-3.4); LYMPH % 22.9 % (22.0-35.0); MEAN CELL VOLUME 86.7 fl (80.0-105.0); MEAN CORPUSCULAR HEMOGLOBIN 27.3 pg (25.0-35.0); MEAN CORPUSCULAR HGB CONC 31.5 g/dl (31.0-37.0); MEAN PLATELET VOLUME 8.9 fl (7.0-11.0); MONO # 0.5 (0.1-0.6); MONO % 4.8 % (1.0-6.0); WHITE BLOOD COUNT 10.1 10^3/ul (4.5-11.0)
[2017-08-19 07:18] LABS: ALB/GLOB RATIO 1.1 (1.1-1.8); BILIRUBIN,TOTAL 0.3 mg/dL (0.2-1.3); CALCIUM 8.4 mg/dL (8.4-10.5); MAGNESIUM 2.3 mg/dL (1.7-2.2); PHOSPHOROUS 10.2 mg/dL (2.5-4.5); TOTAL PROTEIN 6.9 g/dL (5.8-8.3)
[2017-08-19] MEDS ORDERED: Darbepoetin Alfa 60 mcg/ml Inj IVP ONE (08:00)
[2017-08-19] MEDS: Insulin Lispro (humaLOG) LOW Coverage SC SCH ×4 (08:05→22:34)
--- NOTE | 2017-08-19 08:32 | PN ---
DATE: 08/18/2017 LOCATION: The patient is located in [facility], Room 571, bed 1. REQUESTED BY: Dr. Enedina Chau and Dr. Gutierrez. REASON FOR FOLLOWUP: End-stage renal disease, continuation of hemodialysis, and dislodged Perm-A-cath. SUBJECTIVE: Mrs. Irene Bettencourt is a 57-year-old obese, [place] female with past medical history significant for longstanding hypertension, diabetes, coronary artery disease, CVA, end-stage renal disease, on hemodialysis 3 times a week, Friday, , and Friday for the last 3 months. She was admitted with bleeding from the Perm-A-cath and dislodged Perm-A-cath from the right intrajugular and which was removed in the Emergency Room and subsequently the patient has femoral catheter on Friday and underwent hemodialysis. Her dialysis was complicated by hypotensive episode and seizure-like activity and which responded with returning of her fluid and blood at the end of the treatment and the patient was evaluated by the neurologist and started empirically Keppra for possible seizures. The patient is feeling better, not in acute distress. Denies any complaints. No chest pain. No palpitation. No fever. No cough. No abdominal pain. No nausea, vomiting, or diarrhea. PHYSICAL EXAMINATION: GENERAL: Mrs. Irene Bettencourt is a 57-year-old female moderately-built, moderately-nourished, and in no acute distress. VITAL SIGNS: Blood pressure this morning 141/67, pulse 76, respirations 20, temperature 98, saturation 98%, height 5 feet, and weight is 171 pounds. HEENT: Pupils normal and reactive to light and accommodation. Conjunctivae pink. Sclerae anicteric. Tongue is moist. Trachea is midline. LUNGS: Symmetrical on both side. Bilateral breath sounds present. Clear on auscultation. CARDIOVASCULAR: [place] at the fifth intercostal space, midclavicular line. S1 and S2 audible. No murmur or gallop. ABDOMEN: Normal in appearance, soft, and tympanic. No guarding. No hepatosplenomegaly. CENTRAL NERVOUS SYSTEM: The patient is alert, awake, and oriented x3. Nonfocal neuro examination. Cranial nerves II through XII grossly intact. Sensory and motor system is within normal limits. EXTREMITIES: No cyanosis, no clubbing, and no edema. LABORATORY DATA: Include as follows; as of 08/18/2017, WBC is 9.7, hemoglobin is 7.3, hematocrit is 23.2, and platelets are 320. Sodium 132, potassium 5.9, chloride 95, CO2 of 25, BUN 58, creatinine 8.9, glucose 203, calcium 8.5, phosphorus 8.3, magnesium 2.2, and total bilirubin 0.4. AST 30, ALT 26, and alkaline phosphatase 82. Total protein 6.6 and albumin is 3.5. As of 03/17/2017; sodium 137, potassium 5.3, chloride 100, CO2 of 26, chloride 100, CO2 of 26, BUN 43, creatinine 6.9, and glucose 120. MRI of the lower extremity as of 08/17/2017, MRI of the right foot. CURRENT MEDICATIONS: As follows; Aranesp 60 mcg x1 every Friday, aspirin 81 mg daily, Diovan 320 mg daily on hold, Hectorol 2 mcg 3 times a week, subcutaneous heparin 5000 q.12 hours per sliding scale, Keppra 400 mg IV q.12 hours, Lipitor 40 mg p.o. at bedtime, metoprolol 25 mg p.o. q.12 hours, Nephro-Callie 1 tablet daily, Neurontin 100 mg p.o. daily, Norvasc 10 mg daily, PhosLo 667 mg p.o. with meals, Protonix 40 mg p.o. daily, and Zyvox 600 mg IV q.12 hours. IMPRESSION: Limited study due to the patient's motion, diffuse bone marrow hyperintense signal and cortical erosion at the distal phalanx of the right big toe suspicious for osteomyelitis. Lower extremity LAZARO exam, bilateral tibial disease greater on the left than the right and possible left femoral artery occlusive disease. Limited study due to calcified vessels and if clinically indicated further evaluation can be obtained with CTA runoff, MRA runoff, and conventional arteriogram. PLAN: In summary; Mrs. Bettencourt is a 57-year-old obese, [place] female with history of longstanding hypertension, diabetes, end-stage renal disease, CVA, was admitted with dislodged Perm-A-cath and bleeding and status post right femoral vein catheter placement, and status post hemodialysis on Friday with increase potassium. 1. End-stage renal disease, continue hemodialysis 3 times a week, Friday, , and Friday. 2. Hyperkalemia. We will give Kayexalate 15 g p.o. x1 dose. 3. Anemia secondary to renal failure and recent bleeding from the Perm-A-cath site. 4. Surya out osteomyelitis of the right big toe. Continue antibiotics as per ID and repeat CBC and BMP in the a.m. and we will schedule for hemodialysis in a.m. and also continue Aranesp during dialysis and Zemplar and also increase phosphate binders 2 tablets 3 times a day with food. Thank you for allowing me to participate in our patient's care. Anna Haji MD
--- NOTE | 2017-08-19 08:33 | EEG ---
DATE: 08/18/2017 CONDITION OF THE RECORDING: Drowsy. DIAGNOSIS: Evaluate for seizure. MEDICATIONS: Reviewed by nurse reconciliation sheet. INTERPRETATION: This is a 16-channel international recording. Background activity for this patient was composed of 6 to 7 cycles per second. There was a small amount of beta activity of 16 to 20 cycles per second seen in this recording. There was increased amount of theta activity of 5 to 7 cycles per second seen in this tracing. Drowsiness was characterized by mixed beta and theta activities, and sleep was characterized by vertex transient waves, sleep spindles and bilateral slowing. Photic stimulation showed no change in the tracing. No paroxysmal activity is noted in this recording. CONCLUSION: This is an abnormal EEG due to presence of mild, diffuse slowing, consistent with mild bilateral cerebral dysfunction. No evidence of any epileptiform activity. Please clinically correlate. Lloyd Cabrera MD
--- NOTE | 2017-08-19 10:03 | CP.PCM.PN ---
Subjective - Date & Time of Evaluation Date of Evaluation: 08/19/17 Time of Evaluation: 07:00 - Subjective Subjective: Surgery Note for Dr. Yeung 57F seen and examined at bedside. Patient denies pain in the site of the dialysis catheter. No acute events overnight. Objective - Vital Signs/Intake and Output Vital Signs (last 24 hours): Temp Pulse Resp BP Pulse Ox 98.0 F 77 20 135/61 99 08/19/17 07:30 08/19/17 07:30 08/19/17 07:30 08/19/17 07:30 08/19/17 07:30 Intake and Output: 08/19/17 08/19/17 06:59 18:59 Intake Total 720 Balance 720 - Medications Medications: Current Medications Amlodipine Besylate (Norvasc) 10 mg PO DAILY [facility] Last Admin: 08/18/17 10:29 Dose: 10 mg Aspirin (Aspirin Chewable) 81 mg PO DAILY [facility] Last Admin: 08/18/17 10:29 Dose: 81 mg Atorvastatin Calcium (Lipitor) 40 mg PO HS [facility] Last Admin: 08/18/17 21:50 Dose: 40 mg Cadexomer Iodine (Iodosorb) 0 gm TOP DAILY [facility] Last Admin: 08/18/17 13:14 Dose: 10 gm Doxercalciferol (Hectorol) 2 mcg IV TTS [facility] Gabapentin (Neurontin) 100 mg PO DAILY [facility] PRN Reason: Protocol Last Admin: 08/18/17 10:29 Dose: 100 mg Heparin Sodium (Porcine) (Heparin) 5,000 units SC Q12 [facility] PRN Reason: Protocol Last Admin: 08/18/17 21:49 Dose: 5,000 units Levetiracetam (Keppra 500mg Ivpb) 500 mg in 100 mls @ 400 mls/hr IVPB Q12 [facility] Last Admin: 08/18/17 21:49 Dose: 400 mls/hr Linezolid (Zyvox 600mg/300ml D5w) 600 mg in 300 mls @ 200 mls/hr IVPB Q12 [facility] PRN Reason: Protocol Stop: 08/26/17 22:01 Last Admin: 08/18/17 22:16 Dose: 200 mls/hr Insulin Human Lispro (Humalog Low) 0 units SC ACHS [facility] PRN Reason: Protocol Last Admin: 08/19/17 08:05 Dose: 1 units Metoprolol Tartrate (Lopressor) 25 mg PO Q12H [facility] Last Admin: 08/19/17 05:28 Dose: 25 mg Pantoprazole Sodium (Protonix Ec Tab) 40 mg PO 0600 [facility] Last Admin: 08/19/17 05:29 Dose: 40 mg Sevelamer HCl (Renagel) 1,600 mg PO TID [facility] Valsartan (Diovan) 320 mg PO DAILY [facility] Last Admin: 08/18/17 10:30 Dose: 320 mg Vitamin B Complex/Vit C/Folic Acid (Nephro-Callie) 1 tab PO DAILY [facility] Last Admin: 08/18/17 10:29 Dose: 1 tab - Labs Labs: 08/19/17 06:44 08/19/17 06:44 PT 10.7 Seconds (9.9-11.8) 08/16/17 04:45 INR 0.99 (0.93-1.08) 08/16/17 04:45 APTT 27.2 Seconds (23.7-30.8) 08/16/17 04:45 - Constitutional Appears: Non-toxic, No Acute Distress - Respiratory Exam Respiratory Exam: Clear to Ausculation Bilateral, NORMAL BREATHING PATTERN - Cardiovascular Exam Cardiovascular Exam: REGULAR RHYTHM, +S1, +S2 - Extremities Exam Additional comments: right femoral catheter site, CDI - Neurological Exam Neurological Exam: Alert, Awake Assessment and Plan - Assessment and Plan (Free Text) Assessment: 57yo F with ESRD on HD s/p bedside R Femoral temp Dialysis catheter POD3 Plan: - Dressing changes - OR for permacath Tomorrow - Medical management as per primary team - Further recs per Dr. Gamal Paulino, PGY2
--- NOTE | 2017-08-19 10:23 | CP.PCM.PN ---
Addendum entered and electronically signed by Da Kennedy DPM 08/19/17 21:25 : Nurse called about sangious strikethrough from dressing. Patient seen at bedside with visitor present. Dressing is clean and intact with sangious strikethrough. Patient's dressing changed with iodosorb, dsd, and kerlix. No active bleeding at the time of dressing change. Advised to stay off feet for the night. Resume normal activity tomorrow morning. Patient must wear offloading shoe to at all times when ambulating. Original Note: <Da Kennedy - Last Filed: 08/19/17 21:18> Subjective - Date & Time of Evaluation Date of Evaluation: 08/19/17 Time of Evaluation: 10:01 - Subjective Subjective: 57 year old female with PMH of DM seen at bedside for infected right great toe ulceration. Patient is seen sitting comfortably at bedside, AAOx3, and in NAD. She denies any pain to her lower extremity. Dressing is c/d/i with no strikethrough noted. She denies n/v/sob/cp/chills or f. She denies any other pedal complaint at this time. Objective - Vital Signs/Intake and Output Vital Signs (last 24 hours): Temp Pulse Resp BP Pulse Ox 98.0 F 77 20 135/61 99 08/19/17 07:30 08/19/17 07:30 08/19/17 07:30 08/19/17 07:30 08/19/17 07:30 Intake and Output: 08/19/17 08/19/17 06:59 18:59 Intake Total 720 Balance 720 - Medications Medications: Current Medications Amlodipine Besylate (Norvasc) 10 mg PO DAILY [facility] Last Admin: 08/18/17 10:29 Dose: 10 mg Aspirin (Aspirin Chewable) 81 mg PO DAILY [facility] Last Admin: 08/18/17 10:29 Dose: 81 mg Atorvastatin Calcium (Lipitor) 40 mg PO HS [facility] Last Admin: 08/18/17 21:50 Dose: 40 mg Cadexomer Iodine (Iodosorb) 0 gm TOP DAILY [facility] Last Admin: 08/18/17 13:14 Dose: 10 gm Doxercalciferol (Hectorol) 2 mcg IV TTS [facility] Gabapentin (Neurontin) 100 mg PO DAILY [facility] PRN Reason: Protocol Last Admin: 08/18/17 10:29 Dose: 100 mg Heparin Sodium (Porcine) (Heparin) 5,000 units SC Q12 [facility] PRN Reason: Protocol Last Admin: 08/18/17 21:49 Dose: 5,000 units Levetiracetam (Keppra 500mg Ivpb) 500 mg in 100 mls @ 400 mls/hr IVPB Q12 [facility] Last Admin: 08/18/17 21:49 Dose: 400 mls/hr Linezolid (Zyvox 600mg/300ml D5w) 600 mg in 300 mls @ 200 mls/hr IVPB Q12 [facility] PRN Reason: Protocol Stop: 08/26/17 22:01 Last Admin: 08/18/17 22:16 Dose: 200 mls/hr Insulin Human Lispro (Humalog Low) 0 units SC ACHS [facility] PRN Reason: Protocol Last Admin: 08/19/17 08:05 Dose: 1 units Metoprolol Tartrate (Lopressor) 25 mg PO Q12H [facility] Last Admin: 08/19/17 05:28 Dose: 25 mg Pantoprazole Sodium (Protonix Ec Tab) 40 mg PO 0600 [facility] Last Admin: 08/19/17 05:29 Dose: 40 mg Sevelamer HCl (Renagel) 1,600 mg PO TID [facility] Valsartan (Diovan) 320 mg PO DAILY [facility] Last Admin: 08/18/17 10:30 Dose: 320 mg Vitamin B Complex/Vit C/Folic Acid (Nephro-Callie) 1 tab PO DAILY [facility] Last Admin: 08/18/17 10:29 Dose: 1 tab - Labs Labs: 08/19/17 06:44 08/19/17 06:44 PT 10.7 Seconds (9.9-11.8) 08/16/17 04:45 INR 0.99 (0.93-1.08) 08/16/17 04:45 APTT 27.2 Seconds (23.7-30.8) 08/16/17 04:45 - Constitutional Appears: Well, Non-toxic, No Acute Distress - Extremities Exam Additional comments: Vasc: DP 1/4 bilaterally, PT is nonpalpable, popliteal pulses palpable, localized edema noted to the right hallux Ortho: no pain with palpation to the right great toe Neuro: protective sensation greatly diminished bilaterally Derm: Full thickness ulceration to the plantar right hallux, wound base is fibrotic, malodor is present erythema present to the right hallux with no ascending cellulitis noted, periwound is hyperkeratotic and intact, there is no abscess or fluctanence noted, no active drainage, no probe to bone - Neurological Exam Neurological Exam: Alert, Awake, Oriented x3 - Psychiatric Exam Psychiatric exam: Normal Affect, Normal Mood Assessment and Plan - Assessment and Plan (Free Text) Assessment: 57 year old female with PMH of DM seen at bedside for infected right great toe ulceration suspicious for osteomyelitis Plan: Patient examined and evaluated with attending Dr. Mcdaniel Labs, charts, vitals reviewed (afebrile, WBC=10.1) Discussed plan in detail with attending Dr. Mcdaniel Ulceration was debrided of nonviable tissue down to the level of healthy epithelial layer using a #10 blade without complications. Patient tolerated the procedure well. Ulceration cleansed and dressing changed with Iodosorb, 4x4, and kerlix MRI results- R distal phalanx suspicious for OM Wound culture results +MRSA ID recs appreciated Vasc recs appreciated At this time, no surgical intervention by podiatry. Patient will be treated via antibiotics. Will continue to follow while in house <Nestor Mcdaniel - Last Filed: 08/20/17 07:32> Objective - Vital Signs/Intake and Output Vital Signs (last 24 hours): Temp Pulse Resp BP Pulse Ox 98.8 F 82 20 156/73 H 96 08/19/17 22:00 08/20/17 06:00 08/19/17 22:00 08/20/17 06:00 08/19/17 22:00 Intake and Output: 08/20/17 08/20/17 06:59 18:59 Intake Total 640 Balance 640 - Medications Medications: Current Medications Amlodipine Besylate (Norvasc) 10 mg PO DAILY [facility] Last Admin: 08/19/17 14:44 Dose: 10 mg Aspirin (Aspirin Chewable) 81 mg PO DAILY [facility] Last Admin: 08/19/17 14:44 Dose: 81 mg Atorvastatin Calcium (Lipitor) 40 mg PO HS [facility] Last Admin: 08/19/17 21:09 Dose: 40 mg Cadexomer Iodine (Iodosorb) 0 gm TOP DAILY [facility] Last Admin: 08/19/17 14:48 Dose: 0.1 gm Doxercalciferol (Hectorol) 2 mcg IV TTS [facility] Last Admin: 08/19/17 11:49 Dose: 2 mcg Gabapentin (Neurontin) 100 mg PO DAILY [facility] PRN Reason: Protocol Last Admin: 08/19/17 14:44 Dose: 100 mg Heparin Sodium (Porcine) (Heparin) 5,000 units SC Q12 [facility] PRN Reason: Protocol Last Admin: 08/19/17 21:09 Dose: 5,000 units Heparin Sodium (Porcine) (Heparin) 1,200 units ICA TUTA [facility] Last Admin: 08/19/17 11:51 Dose: 1,200 units Heparin Sodium (Porcine) (Heparin) 1,200 units ICV TUTA [facility] Last Admin: 08/19/17 11:51 Dose: 1,200 units Hydralazine HCl (Apresoline) 10 mg IVP Q6 PRN PRN Reason: Tension Levetiracetam (Keppra 500mg Ivpb) 500 mg in 100 mls @ 400 mls/hr IVPB Q12 [facility] Last Admin: 08/19/17 21:09 Dose: 400 mls/hr Linezolid (Zyvox 600mg/300ml D5w) 600 mg in 300 mls @ 200 mls/hr IVPB Q12 [facility] PRN Reason: Protocol Stop: 08/26/17 22:01 Last Admin: 08/19/17 21:10 Dose: 200 mls/hr Insulin Human Lispro (Humalog Low) 0 units SC ACHS [facility] PRN Reason: Protocol Last Admin: 08/19/17 22:34 Dose: Not Given Metoprolol Tartrate (Lopressor) 25 mg PO Q12H [facility] Last Admin: 08/20/17 06:00 Dose: 25 mg Pantoprazole Sodium (Protonix Ec Tab) 40 mg PO 0600 [facility] Last Admin: 08/20/17 06:02 Dose: 40 mg Sevelamer HCl (Renagel) 1,600 mg PO TID [facility] Last Admin: 08/19/17 18:41 Dose: 1,600 mg Valsartan (Diovan) 320 mg PO DAILY [facility] Last Admin: 08/18/17 10:30 Dose: 320 mg Vitamin B Complex/Vit C/Folic Acid (Nephro-Callie) 1 tab PO DAILY [facility] Last Admin: 08/19/17 14:44 Dose: 1 tab - Labs Labs: 08/19/17 06:44 08/19/17 18:31 PT 10.7 Seconds (9.9-11.8) 08/16/17 04:45 INR 0.99 (0.93-1.08) 08/16/17 04:45 APTT 27.2 Seconds (23.7-30.8) 08/16/17 04:45 Attending/Attestation - Attestation I have personally seen and examined this patient.: Yes I have fully participated in the care of the patient.: Yes I have reviewed all pertinent clinical information, including history, physical exam and plan: Yes
--- NOTE | 2017-08-19 11:38 | CARD ---
APPROVED REPORT EKG Measurement Heart [id number] <Conclusion> Normal sinus rhythm Nonspecific T wave abnormality Prolonged QT Abnormal ECG
--- NOTE | 2017-08-19 11:44 | CP.PCM.PN ---
Addendum entered and electronically signed by Carlos Ignacio DO 08/19/17 16:07 : OM of Right Hallux No PICC needed. ID recs: IV Vanc 1gm during each dialysis for four weeks Original Note: <Carlos Ignacio - Last Filed: 08/19/17 15:28> Subjective - Date & Time of Evaluation Date of Evaluation: 08/19/17 Time of Evaluation: 07:30 - Subjective Subjective: Medicine Note Pt S&E at bedside this AM. Morning potassium 6.0. EKG performed showed no signs of peaked T-waves. Denies pain in the right toe. wound culture +MRSA. Denies F/ C CP/SOB N/V/D Objective - Vital Signs/Intake and Output Vital Signs (last 24 hours): Temp Pulse Resp BP Pulse Ox 98.0 F 77 20 135/61 99 08/19/17 07:30 08/19/17 07:30 08/19/17 07:30 08/19/17 07:30 08/19/17 07:30 Intake and Output: 08/19/17 08/19/17 06:59 18:59 Intake Total 720 240 Balance 720 240 - Medications Medications: Current Medications Amlodipine Besylate (Norvasc) 10 mg PO DAILY [facility] Last Admin: 08/18/17 10:29 Dose: 10 mg Aspirin (Aspirin Chewable) 81 mg PO DAILY [facility] Last Admin: 08/18/17 10:29 Dose: 81 mg Atorvastatin Calcium (Lipitor) 40 mg PO HS [facility] Last Admin: 08/18/17 21:50 Dose: 40 mg Cadexomer Iodine (Iodosorb) 0 gm TOP DAILY [facility] Last Admin: 08/18/17 13:14 Dose: 10 gm Doxercalciferol (Hectorol) 2 mcg IV TTS [facility] Gabapentin (Neurontin) 100 mg PO DAILY [facility] PRN Reason: Protocol Last Admin: 08/18/17 10:29 Dose: 100 mg Heparin Sodium (Porcine) (Heparin) 5,000 units SC Q12 [facility] PRN Reason: Protocol Last Admin: 08/18/17 21:49 Dose: 5,000 units Heparin Sodium (Porcine) (Heparin) 1,200 units ICA TUTA [facility] Heparin Sodium (Porcine) (Heparin) 1,200 units ICV TUTHSA [facility] Levetiracetam (Keppra 500mg Ivpb) 500 mg in 100 mls @ 400 mls/hr IVPB Q12 [facility] Last Admin: 08/18/17 21:49 Dose: 400 mls/hr Linezolid (Zyvox 600mg/300ml D5w) 600 mg in 300 mls @ 200 mls/hr IVPB Q12 [facility] PRN Reason: Protocol Stop: 08/26/17 22:01 Last Admin: 08/18/17 22:16 Dose: 200 mls/hr Insulin Human Lispro (Humalog Low) 0 units SC ACHS [facility] PRN Reason: Protocol Last Admin: 08/19/17 08:05 Dose: 1 units Metoprolol Tartrate (Lopressor) 25 mg PO Q12H [facility] Last Admin: 08/19/17 05:28 Dose: 25 mg Pantoprazole Sodium (Protonix Ec Tab) 40 mg PO 0600 [facility] Last Admin: 08/19/17 05:29 Dose: 40 mg Sevelamer HCl (Renagel) 1,600 mg PO TID [facility] Valsartan (Diovan) 320 mg PO DAILY [facility] Last Admin: 08/18/17 10:30 Dose: 320 mg Vitamin B Complex/Vit C/Folic Acid (Nephro-Callie) 1 tab PO DAILY [facility] Last Admin: 08/18/17 10:29 Dose: 1 tab - Labs Labs: 08/19/17 06:44 08/19/17 06:44 PT 10.7 Seconds (9.9-11.8) 08/16/17 04:45 INR 0.99 (0.93-1.08) 08/16/17 04:45 APTT 27.2 Seconds (23.7-30.8) 08/16/17 04:45 - Constitutional Appears: Non-toxic, No Acute Distress - Head Exam Head Exam: ATRAUMATIC - Eye Exam Eye Exam: EOMI. absent: Scleral icterus - ENT Exam ENT Exam: absent: Mucous Membranes Moist - Respiratory Exam Respiratory Exam: NORMAL BREATHING PATTERN. absent: Accessory Muscle Use, Respiratory Distress - Cardiovascular Exam Cardiovascular Exam: +S1, +S2 - GI/Abdominal Exam GI & Abdominal Exam: Soft. absent: Distended, Firm, Guarding, Rigid - Extremities Exam Extremities Exam: absent: Calf Tenderness Additional comments: Femoral Dialysis catheter in place. Dressing C/D/I Right Hallux Erythematous non-indurated - Neurological Exam Neurological Exam: Awake, Oriented x3 - Skin Skin Exam: Normal Color Assessment and Plan - Assessment and Plan (Free Text) Assessment: 57 F with multiple co-morbidities presented with profuse bleeding after dialysis catheter came out. s/p femoral catheter placement. HD TTS as per nephrology. Right right hallux infection MRSA +. MRI reviewed showing possible osteomyelitis. Questionable seizure episode on Friday during Dialysis Dialysis Permacath General Surgery c/s: Dr. Yeung Plan to place permacath tomorrow (Friday) ESRD on Dialysis Nephro c/s: Dr. Haji HD Today Dialysis TTS Asx hyperkalemic. Moring AM K- 6.0. Dialysis today. Will repeat labs post dialysis Patient had questionable seizure on Friday during Dialysis. Systolic BP went from 162 to 94. Patient started on Keppra. Will monitor closely. Continue home Phoslo and B Complex Seizure Neurology c/s: Dr. Cabrera During Dialysis on Friday BP went from 162 to 94. Rapid movements can occur. Pt started on Keppra Plan to discontinue Keppra upon discharge. R Hallux Infection- OM Pods C/s: [place] WCx: MRSA + ID consulted abx IV Linezolid Plan for Conservative treatment for now. Will discuss if pt should have PICC placed for [facility] Abx. Hx HTN Amlodipine, Valsartan, Metoprolol Hx CAD s/p Stents Continue home Lipitor, ASA PPX Heparin/Protonix Carlos Ignacio PGY1 <Bo Gutierrez - Last Filed: 08/19/17 16:48> Objective - Vital Signs/Intake and Output Vital Signs (last 24 hours): Temp Pulse Resp BP Pulse Ox 98.0 F 77 20 163/69 H 99 08/19/17 07:30 08/19/17 07:30 08/19/17 07:30 08/19/17 14:44 08/19/17 07:30 Intake and Output: 08/19/17 08/19/17 06:59 18:59 Intake Total 720 240 Balance 720 240 - Medications Medications: Current Medications Amlodipine Besylate (Norvasc) 10 mg PO DAILY [facility] Last Admin: 08/19/17 14:44 Dose: 10 mg Aspirin (Aspirin Chewable) 81 mg PO DAILY [facility] Last Admin: 08/19/17 14:44 Dose: 81 mg Atorvastatin Calcium (Lipitor) 40 mg PO HS [facility] Last Admin: 08/18/17 21:50 Dose: 40 mg Cadexomer Iodine (Iodosorb) 0 gm TOP DAILY [facility] Last Admin: 08/19/17 14:48 Dose: 0.1 gm Doxercalciferol (Hectorol) 2 mcg IV TTS [facility] Last Admin: 08/19/17 11:49 Dose: 2 mcg Gabapentin (Neurontin) 100 mg PO DAILY [facility] PRN Reason: Protocol Last Admin: 08/19/17 14:44 Dose: 100 mg Heparin Sodium (Porcine) (Heparin) 5,000 units SC Q12 [facility] PRN Reason: Protocol Last Admin: 08/19/17 14:03 Dose: Not Given Heparin Sodium (Porcine) (Heparin) 1,200 units ICA TUTHSA [facility] Last Admin: 08/19/17 11:51 Dose: 1,200 units Heparin Sodium (Porcine) (Heparin) 1,200 units ICV TUTA [facility] Last Admin: 08/19/17 11:51 Dose: 1,200 units Levetiracetam (Keppra 500mg Ivpb) 500 mg in 100 mls @ 400 mls/hr IVPB Q12 [facility] Last Admin: 08/19/17 14:05 Dose: Not Given Linezolid (Zyvox 600mg/300ml D5w) 600 mg in 300 mls @ 200 mls/hr IVPB Q12 [facility] PRN Reason: Protocol Stop: 08/26/17 22:01 Last Admin: 08/19/17 14:06 Dose: Not Given Insulin Human Lispro (Humalog Low) 0 units SC ACHS [facility] PRN Reason: Protocol Last Admin: 08/19/17 14:03 Dose: Not Given Metoprolol Tartrate (Lopressor) 25 mg PO Q12H [facility] Last Admin: 08/19/17 05:28 Dose: 25 mg Pantoprazole Sodium (Protonix Ec Tab) 40 mg PO 0600 [facility] Last Admin: 08/19/17 05:29 Dose: 40 mg Sevelamer HCl (Renagel) 1,600 mg PO TID [facility] Last Admin: 08/19/17 14:50 Dose: 1,600 mg Valsartan (Diovan) 320 mg PO DAILY [facility] Last Admin: 08/18/17 10:30 Dose: 320 mg Vitamin B Complex/Vit C/Folic Acid (Nephro-Callie) 1 tab PO DAILY [facility] Last Admin: 08/19/17 14:44 Dose: 1 tab - Labs Labs: 08/19/17 06:44 08/19/17 06:44 PT 10.7 Seconds (9.9-11.8) 08/16/17 04:45 INR 0.99 (0.93-1.08) 08/16/17 04:45 APTT 27.2 Seconds (23.7-30.8) 08/16/17 04:45 Attending/Attestation - Attestation I have personally seen and examined this patient.: Yes I have fully participated in the care of the patient.: Yes I have reviewed all pertinent clinical information, including history, physical exam and plan: Yes Notes (Text): 08/19/17 16:46 57 year old female who presented after her dialysis catheter came out. She is s /p femoral catheter placement. Surgery is following and planning for permacath placement tomorrow. Hyperkalemia noted. Patient will be going for dialysis today. Nephrology is following as well. She is also being seen by podiatry and ID for right hallux infection. MRI reviewed showing osteomyelitis. Continue with iv antibiotics. Case discussed with ID and construction carpenters helper today; patient will need 4-6 weeks of iv antibiotics. Arterial doppler was reviewed and IR evaluation was appreciated. Neurology evaluation was also appreciated for possibly seizure episode on Friday. Patient was started on keppra. Bo Gutierrez MD Hospitalist.
[2017-08-19] MEDS: Doxercalciferol 4 mcg/2 ml Inj IV SCH (11:49)
--- NOTE | 2017-08-19 12:41 | CP.PCM.PN ---
Subjective - Date & Time of Evaluation Date of Evaluation: 08/19/17 Time of Evaluation: 12:40 - Subjective Subjective: pt is seen and examined during hd, uf goal is 2 lit follow up consult is dictated #[id number] Objective - Vital Signs/Intake and Output Vital Signs (last 24 hours): Temp Pulse Resp BP Pulse Ox 98.0 F 77 20 135/61 99 08/19/17 07:30 08/19/17 07:30 08/19/17 07:30 08/19/17 07:30 08/19/17 07:30 Intake and Output: 08/19/17 08/19/17 06:59 18:59 Intake Total 720 240 Balance 720 240 - Medications Medications: Current Medications Amlodipine Besylate (Norvasc) 10 mg PO DAILY [facility] Last Admin: 08/18/17 10:29 Dose: 10 mg Aspirin (Aspirin Chewable) 81 mg PO DAILY [facility] Last Admin: 08/18/17 10:29 Dose: 81 mg Atorvastatin Calcium (Lipitor) 40 mg PO HS [facility] Last Admin: 08/18/17 21:50 Dose: 40 mg Cadexomer Iodine (Iodosorb) 0 gm TOP DAILY [facility] Last Admin: 08/18/17 13:14 Dose: 10 gm Doxercalciferol (Hectorol) 2 mcg IV TTS [facility] Last Admin: 08/19/17 11:49 Dose: 2 mcg Gabapentin (Neurontin) 100 mg PO DAILY [facility] PRN Reason: Protocol Last Admin: 08/18/17 10:29 Dose: 100 mg Heparin Sodium (Porcine) (Heparin) 5,000 units SC Q12 [facility] PRN Reason: Protocol Last Admin: 08/18/17 21:49 Dose: 5,000 units Heparin Sodium (Porcine) (Heparin) 1,200 units ICA TUTA [facility] Last Admin: 08/19/17 11:51 Dose: 1,200 units Heparin Sodium (Porcine) (Heparin) 1,200 units ICV TUTHSA [facility] Last Admin: 08/19/17 11:51 Dose: 1,200 units Levetiracetam (Keppra 500mg Ivpb) 500 mg in 100 mls @ 400 mls/hr IVPB Q12 [facility] Last Admin: 08/18/17 21:49 Dose: 400 mls/hr Linezolid (Zyvox 600mg/300ml D5w) 600 mg in 300 mls @ 200 mls/hr IVPB Q12 [facility] PRN Reason: Protocol Stop: 08/26/17 22:01 Last Admin: 08/18/17 22:16 Dose: 200 mls/hr Insulin Human Lispro (Humalog Low) 0 units SC ACHS [facility] PRN Reason: Protocol Last Admin: 08/19/17 08:05 Dose: 1 units Metoprolol Tartrate (Lopressor) 25 mg PO Q12H [facility] Last Admin: 08/19/17 05:28 Dose: 25 mg Pantoprazole Sodium (Protonix Ec Tab) 40 mg PO 0600 [facility] Last Admin: 08/19/17 05:29 Dose: 40 mg Sevelamer HCl (Renagel) 1,600 mg PO TID [facility] Valsartan (Diovan) 320 mg PO DAILY [facility] Last Admin: 08/18/17 10:30 Dose: 320 mg Vitamin B Complex/Vit C/Folic Acid (Nephro-Callie) 1 tab PO DAILY [facility] Last Admin: 08/18/17 10:29 Dose: 1 tab - Labs Labs: 08/19/17 06:44 08/19/17 06:44 PT 10.7 Seconds (9.9-11.8) 08/16/17 04:45 INR 0.99 (0.93-1.08) 08/16/17 04:45 APTT 27.2 Seconds (23.7-30.8) 08/16/17 04:45
[2017-08-19] MEDS: levETIRAcetam 500mg IVPB 500 MG/100 ML BAG IVPB SCH ×2 (14:05→21:09)
[2017-08-19] MEDS: Linezolid 600 mg in D5W 300 ml 600 MG/300 ML BAG IVPB SCH ×2 (14:06→21:10)
[2017-08-19] MEDS: Multivitamin Vitamin B Complex (Nephro-Vite) Tab PO SCH (14:44)
[2017-08-19] MEDS: CADEXOMER IODINE 0.9% GEL 10G TOP SCH (14:48)
--- NOTE | 2017-08-19 17:12 | CON ---
DATE: 08/19/2017 HISTORY OF PRESENT ILLNESS: The patient is seen in room #574, bed #2; earlier this morning, she was in #571, bed #1. CHIEF COMPLAINT: Foot infection times weeks. HISTORY OF PRESENT ILLNESS: This is a 57-year-old female with diabetes mellitus; end-stage renal disease, on hemodialysis; coronary artery disease; cerebrovascular accident x2; peripheral vascular disease and hypertension and history of cardiac stents and hemodialysis catheter; history of high cholesterol, was admitted for malfunctioning catheter. Infectious disease consultation is requested because of a right foot infection. REVIEW OF SYSTEMS: Reveals no fevers, no chills, no nausea, no vomiting, no chest pain and no dysuria or frequency. PAST MEDICAL HISTORY: Significant for end-stage renal disease, on hemodialysis; cerebrovascular accident; peripheral vascular disease; diabetes; high cholesterol; hypertension and coronary artery disease. PAST SURGICAL HISTORY: Significant for , cardiac stents and hemodialysis catheter. ALLERGIES: THE PATIENT HAS NO KNOWN ALLERGIES. MEDICATIONS: At home reveal the patient to be on Diovan, aspirin and Lipitor. PHYSICAL EXAMINATION: VITAL SIGNS: Temperature of 97, blood pressure is 135/60, respiratory rate of 20 and heart rate of 73. EXAMINATION OF HEENT: Unremarkable. NECK: Supple. LUNGS: Have decreased breath sounds. HEART EXAM: Normal S1 and S2. ABDOMINAL EXAMINATION: Soft, nontender. EXTREMITIES: Examination of the foot reveals the big toe is erythematous and there is an ulcer present. There is some erythema in the foot, also in the , however, most on the big toe. LABORATORY EXAMINATION: Reveals a white count of 10,000; hemoglobin of 7; platelets of 356. BUN of 70, creatinine of 10. Microbiology reveals the MRSA from the left foot culture. ASSESSMENT AND PLAN: A 57-year-old female with end-stage renal disease, on hemodialysis; coronary artery disease; cerebrovascular accident x2; peripheral vascular disease; hypertension; diabetes; high cholesterol with the big toe cellulitis and osteomyelitis. The patient did have an MRI which was positive with methicillin-resistant Staphylococcus aureus on the cultures. MRI of the right big toe reveals osteomyelitis and right big toe cellulitis with methicillin-resistant Staphylococcus aureus osteomyelitis. We will treat the patient with vancomycin 1 g at each dialysis x4 weeks. The patient is currently on Zyvox. Upon discharge, the patient may be switched to vancomycin 1 g each dialysis x4 weeks. Follow up with vascular and podiatry. Estevan Licona MD
--- NOTE | 2017-08-19 18:26 | PN ---
LOCATION: The patient is located in room 574 of [facility] [address] REQUESTED BY: Dr. Brenda Soriano. REASON FOR FOLLOWUP: End-stage renal disease, for continuation of hemodialysis. SUBJECTIVE: The patient is a 57 years old middle-aged obese, Citizen Of [place] female, with a past medical history significant for longstanding hypertension; diabetes; CVA; status post CAD; end-stage renal disease, on hemodialysis for the last 2-1/2 to 3 months, was admitted to [facility] for the bleeding from the Perm-A-Cath and dislodged Perm-A-Cath and . The patient has a femoral catheter placement by surgery resident and started on hemodialysis and started it through right femoral vein catheter. The patient has been dilated at this time and denies any complaints. Denies any chest pain or palpitation. Denies any fever, cough, abdominal pain. No nausea, vomiting, or diarrhea. PHYSICAL EXAMINATION: VITAL SIGNS: As follows; blood pressure 135/61, pulse 77, respirations 20, temperature 98, saturation 99%, height 5 feet, and weight is 171 pounds. BMI is 33.6. GENERAL: The patient is a 57-year-old female moderately-built, moderately-nourished, and in no acute distress. HEENT: Pupils normal and reactive to light and accommodation. Conjunctivae pink. Sclerae anicteric. Tongue is moist. Trachea is midline. LUNGS: Symmetrical on both side. Bilateral breath sounds present. Clear on auscultation. CARDIOVASCULAR: [place] at the fifth intercostal space, midclavicular line. S1 and S2 audible. No murmur or gallop. ABDOMEN: Normal in appearance, soft, and tympanic. No guarding. No hepatosplenomegaly. CENTRAL NERVOUS SYSTEM: The patient is alert, awake, and oriented x3. Nonfocal neuro examination. Cranial nerves II through XII grossly intact. Sensory and motor system is within normal limits. EXTREMITIES: No cyanosis, no clubbing, and no edema. CURRENT MEDICATIONS: Include as follows; aspirin 81 mg daily, Diovan 320 mg p.o. daily, Hectorol 2 mcg 3 times a week, subcutaneous heparin 5000 q. 12 hours, heparin 12,000 units intracatheter 3 times a week and Keppra 500 mg q. 12 hours and Lipitor 40 mg at bedtime, Lopressor 25 mg p.o. q. 12 hours, Nephro-Callie 1 tablet daily, Neurontin 100 mg p.o. daily, Norvasc 10 mg daily, Protonix 40 mg p.o. daily, Renagel 1600 mg p.o. t.i.d. and Zyvox 600 mg q. 12 hours. RECURRENT LABORATORY DATA: Include as follows; as of 08/19/2017, WBC 10.1, hemoglobin 7.6, hematocrit is 24.1, and platelets are 356. Sodium 138, potassium is 6, chloride 99, CO2 of 23, BUN 17, creatinine 10.7, glucose 168, calcium 8.4, phosphorus 10.2, magnesium 2.3, total bilirubin 0.3, AST 32, ALT 17, and alkaline phosphatase 88. Total protein 6.9, albumin is 3.6. The reports of wound culture; gram-positive for the MRSA and blood culture x2 negative day #3. IMPRESSION: In summary; the patient is a 57-year-old female with a history of hypertension, diabetes, cerebrovascular accident, coronary artery disease, end-stage renal disease, on hemodialysis three times a week with a dislodged Perm-A-cath and status post right femoral vein catheter; 1. End-stage renal disease. Continue hemodialysis 3 times a week, Friday, , and Friday. 2. Hyperkalemia secondary to renal failure, noncompliance of the diet. 3. Anemia secondary to renal failure and recent blood loss. 4. Right big toe infection, possible osteomyelitis. Continue IV antibiotics as per ID recommendations. 5. Rule out peripheral vascular disease. The patient is being dilated at this time with a 2K bath and 2 L. Repeat potassium post dialysis. Thank you for allowing me to participate in our patient's care. Anna Haji MD
[2017-08-19 18:42] LABS: CALCIUM 8.3 mg/dL (8.4-10.5); POTASSIUM 4.8 mmol/L (3.6-5.0)
[2017-08-20] MEDS: Pantoprazole 40 mg EC Tab PO SCH (06:02)
[2017-08-20 07:38] LABS: BASO # 0.06 K/mm3 (0.0-2.0); BASO % 0.7 % (0.0-3.0); EOS # 0.5 (0.0-0.7); EOS % 5.2 % (1.5-5.0); GRAN # 5.39 (1.4-6.5); GRAN % 61.9 % (50.0-68.0); LYMPH # 2.3 (1.2-3.4); LYMPH % 26.1 % (22.0-35.0); MEAN CELL VOLUME 88.3 fl (80.0-105.0); MEAN CORPUSCULAR HEMOGLOBIN 27.7 pg (25.0-35.0); MEAN CORPUSCULAR HGB CONC 31.4 g/dl (31.0-37.0); MEAN PLATELET VOLUME 8.7 fl (7.0-11.0); MONO # 0.5 (0.1-0.6); MONO % 6.1 % (1.0-6.0); RED CELL DISTRIBUTION WIDTH 17.6 % (11.5-14.5); WHITE BLOOD COUNT 8.7 10^3/ul (4.5-11.0)
[2017-08-20 08:00] LABS: HEMATOCRIT 22.6 % (36.0-48.0)
[2017-08-20 08:10] LABS: BILIRUBIN,TOTAL 0.3 mg/dL (0.2-1.3); CALCIUM 8.1 mg/dL (8.4-10.5); MAGNESIUM 2.1 mg/dL (1.7-2.2); PHOSPHOROUS 6.9 mg/dL (2.5-4.5); POTASSIUM 5.1 mmol/L (3.6-5.0); TOTAL PROTEIN 6.7 g/dL (5.8-8.3)
[2017-08-20] MEDS: Insulin Lispro (humaLOG) LOW Coverage SC SCH ×4 (08:14→22:27)
[2017-08-20] MEDS: CADEXOMER IODINE 0.9% GEL 10G TOP SCH (09:46)
[2017-08-20] MEDS: Linezolid 600 mg in D5W 300 ml 600 MG/300 ML BAG IVPB SCH (10:07)
[2017-08-20] MEDS: levETIRAcetam 500mg IVPB 500 MG/100 ML BAG IVPB SCH (10:10)
[2017-08-20] MEDS: Multivitamin Vitamin B Complex (Nephro-Vite) Tab PO SCH (10:13)
--- NOTE | 2017-08-20 10:18 | CP.PCM.PN ---
<Da Kennedy - Last Filed: 08/20/17 10:15> Subjective - Date & Time of Evaluation Date of Evaluation: 08/20/17 Time of Evaluation: 10:15 - Subjective Subjective: 57 year old female with PMH of DM seen at bedside for infected right great toe ulceration. Patient is seen sitting comfortably at bedside, AAOx3, and in NAD. She denies any pain to her lower extremity. Dressing is c/d/i with no strikethrough noted today. She denies n/v/sob/cp/chills or f. She denies any other pedal complaint at this time. Objective - Vital Signs/Intake and Output Vital Signs (last 24 hours): Temp Pulse Resp BP Pulse Ox 98.6 F 82 20 156/73 H 96 08/20/17 08:00 08/20/17 08:00 08/20/17 08:00 08/20/17 08:00 08/20/17 08:00 Intake and Output: 08/20/17 08/20/17 06:59 18:59 Intake Total 640 Balance 640 - Medications Medications: Current Medications Amlodipine Besylate (Norvasc) 10 mg PO DAILY [facility] Last Admin: 08/19/17 14:44 Dose: 10 mg Aspirin (Aspirin Chewable) 81 mg PO DAILY [facility] Last Admin: 08/19/17 14:44 Dose: 81 mg Atorvastatin Calcium (Lipitor) 40 mg PO HS [facility] Last Admin: 08/19/17 21:09 Dose: 40 mg Cadexomer Iodine (Iodosorb) 0 gm TOP DAILY [facility] Last Admin: 08/19/17 14:48 Dose: 0.1 gm Doxercalciferol (Hectorol) 2 mcg IV TTS [facility] Last Admin: 08/19/17 11:49 Dose: 2 mcg Gabapentin (Neurontin) 100 mg PO DAILY [facility] PRN Reason: Protocol Last Admin: 08/19/17 14:44 Dose: 100 mg Heparin Sodium (Porcine) (Heparin) 5,000 units SC Q12 [facility] PRN Reason: Protocol Last Admin: 08/19/17 21:09 Dose: 5,000 units Heparin Sodium (Porcine) (Heparin) 1,200 units ICA TUTHSA [facility] Last Admin: 08/19/17 11:51 Dose: 1,200 units Heparin Sodium (Porcine) (Heparin) 1,200 units ICV TUTHSA [facility] Last Admin: 08/19/17 11:51 Dose: 1,200 units Hydralazine HCl (Apresoline) 10 mg IVP Q6 PRN PRN Reason: Tension Levetiracetam (Keppra 500mg Ivpb) 500 mg in 100 mls @ 400 mls/hr IVPB Q12 [facility] Last Admin: 08/19/17 21:09 Dose: 400 mls/hr Linezolid (Zyvox 600mg/300ml D5w) 600 mg in 300 mls @ 200 mls/hr IVPB Q12 [facility] PRN Reason: Protocol Stop: 08/26/17 22:01 Last Admin: 08/19/17 21:10 Dose: 200 mls/hr Insulin Human Lispro (Humalog Low) 0 units SC ACHS [facility] PRN Reason: Protocol Last Admin: 08/19/17 22:34 Dose: Not Given Metoprolol Tartrate (Lopressor) 25 mg PO Q12H [facility] Last Admin: 08/20/17 06:00 Dose: 25 mg Pantoprazole Sodium (Protonix Ec Tab) 40 mg PO 0600 [facility] Last Admin: 08/20/17 06:02 Dose: 40 mg Sevelamer HCl (Renagel) 1,600 mg PO TID [facility] Last Admin: 08/19/17 18:41 Dose: 1,600 mg Valsartan (Diovan) 320 mg PO DAILY [facility] Last Admin: 08/18/17 10:30 Dose: 320 mg Vitamin B Complex/Vit C/Folic Acid (Nephro-Callie) 1 tab PO DAILY [facility] Last Admin: 08/19/17 14:44 Dose: 1 tab - Labs Labs: 08/20/17 07:34 08/20/17 07:34 PT 10.7 Seconds (9.9-11.8) 08/16/17 04:45 INR 0.99 (0.93-1.08) 08/16/17 04:45 APTT 27.2 Seconds (23.7-30.8) 08/16/17 04:45 - Constitutional Appears: Well, Non-toxic, No Acute Distress - Extremities Exam Additional comments: Vasc: DP 1/4 bilaterally, PT is nonpalpable, popliteal pulses palpable, localized edema noted to the right hallux Ortho: no pain with palpation to the right great toe Neuro: protective sensation greatly diminished bilaterally Derm: Full thickness ulceration to the plantar right hallux, wound base is fibrotic, malodor is present, significantly less malodorous, erythema present to the right hallux with no ascending cellulitis noted, periwound is hyperkeratotic and intact, there is no abscess or fluctanence noted, no active drainage, no probe to bone - Neurological Exam Neurological Exam: Alert, Awake, Oriented x3 - Psychiatric Exam Psychiatric exam: Normal Affect, Normal Mood Assessment and Plan - Assessment and Plan (Free Text) Assessment: 57 year old female seen at bedside for right great toe OM secondary to ulceration and DM. Plan: Patient examined and evaluated Labs, charts, vitals reviewed (afebrile, WBC=8.7) Discussed plan in detail with attending Dr. Mcdaniel Ulceration cleansed with saline and dressing changed with Iodosorb, 4x4, and kerlix MRI results- R distal phalanx suspicious for OM Wound culture results +MRSA ID recs appreciated Continue IV abx At this time, no surgical intervention by podiatry. Patient will be treated conservatively. Will continue to follow while in house <Nestor Mcdaniel - Last Filed: 08/21/17 07:29> Objective - Vital Signs/Intake and Output Vital Signs (last 24 hours): Temp Pulse Resp BP Pulse Ox 98.1 F 75 18 155/72 H 99 08/20/17 22:00 08/20/17 22:00 08/20/17 22:00 08/20/17 22:00 08/20/17 22:00 Intake and Output: 08/21/17 08/21/17 06:59 18:59 Intake Total 480 Output Total 0 Balance 480 - Medications Medications: Current Medications Amlodipine Besylate (Norvasc) 10 mg PO DAILY [facility] Last Admin: 08/20/17 10:13 Dose: 10 mg Aspirin (Aspirin Chewable) 81 mg PO DAILY [facility] Last Admin: 08/20/17 10:13 Dose: 81 mg Atorvastatin Calcium (Lipitor) 40 mg PO HS [facility] Last Admin: 08/20/17 21:36 Dose: 40 mg Cadexomer Iodine (Iodosorb) 0 gm TOP DAILY [facility] Last Admin: 08/20/17 09:46 Dose: 10 gm Doxercalciferol (Hectorol) 2 mcg IV TTS [facility] Last Admin: 08/19/17 11:49 Dose: 2 mcg Gabapentin (Neurontin) 100 mg PO DAILY [facility] PRN Reason: Protocol Last Admin: 08/20/17 10:14 Dose: 100 mg Heparin Sodium (Porcine) (Heparin) 5,000 units SC Q12 [facility] PRN Reason: Protocol Last Admin: 08/20/17 21:35 Dose: 5,000 units Heparin Sodium (Porcine) (Heparin) 1,200 units ICA TUTA [facility] Last Admin: 08/19/17 11:51 Dose: 1,200 units Heparin Sodium (Porcine) (Heparin) 1,200 units ICV [facility] Last Admin: 08/19/17 11:51 Dose: 1,200 units Hydralazine HCl (Apresoline) 10 mg IVP Q6 PRN PRN Reason: Tension Levetiracetam (Keppra 500mg Ivpb) 500 mg in 100 mls @ 400 mls/hr IVPB Q12 [facility] Last Admin: 08/21/17 00:09 Dose: 400 mls/hr Linezolid (Zyvox 600mg/300ml D5w) 600 mg in 300 mls @ 200 mls/hr IVPB Q12 [facility] PRN Reason: Protocol Stop: 08/26/17 22:01 Last Admin: 08/21/17 00:07 Dose: 200 mls/hr Insulin Human Lispro (Humalog Low) 0 units SC ACHS [facility] PRN Reason: Protocol Last Admin: 08/20/17 22:27 Dose: Not Given Metoprolol Tartrate (Lopressor) 25 mg PO Q12H [facility] Last Admin: 08/20/17 18:51 Dose: 25 mg Ondansetron HCl (Zofran Inj) 4 mg IVP Q6H PRN PRN Reason: Nausea/Vomiting Oxycodone/Acetaminophen (Percocet 5/325 Mg Tab) 2 tab PO Q4H PRN PRN Reason: Pain, moderate (4-7) Stop: 08/23/17 15:21 Pantoprazole Sodium (Protonix Ec Tab) 40 mg PO 0600 [facility] Last Admin: 08/21/17 05:52 Dose: 40 mg Sevelamer HCl (Renagel) 1,600 mg PO TID [facility] Last Admin: 08/20/17 18:51 Dose: 1,600 mg Valsartan (Diovan) 320 mg PO DAILY [facility] Last Admin: 08/18/17 10:30 Dose: 320 mg Vitamin B Complex/Vit C/Folic Acid (Nephro-Callie) 1 tab PO DAILY [facility] Last Admin: 08/20/17 10:13 Dose: 1 tab - Labs Labs: 08/20/17 07:34 08/20/17 07:34 PT 10.7 Seconds (9.9-11.8) 08/16/17 04:45 INR 0.99 (0.93-1.08) 08/16/17 04:45 APTT 27.2 Seconds (23.7-30.8) 08/16/17 04:45 Attending/Attestation - Attestation I have personally seen and examined this patient.: Yes I have fully participated in the care of the patient.: Yes I have reviewed all pertinent clinical information, including history, physical exam and plan: Yes
[2017-08-20] MEDS ORDERED: Lidocaine 2% Inj (20ml) ONE (13:01)
--- NOTE | 2017-08-20 13:11 | CP.PCM.PN ---
<Gerson Peres - Last Filed: 08/20/17 17:26> Subjective - Date & Time of Evaluation Date of Evaluation: 08/20/17 Time of Evaluation: 06:08 - Subjective Subjective: Patient was seen and examined at beside. Per nursing no acute events overnight. The patient reports no chest pain, lightheadedness, dizziness, abdominal pain , constipation, diarrhea, changes in vision, palpitations, or any other complaints. Objective - Vital Signs/Intake and Output Vital Signs (last 24 hours): Temp Pulse Resp BP Pulse Ox 98.6 F 82 20 156/73 H 96 08/20/17 08:00 08/20/17 08:00 08/20/17 08:00 08/20/17 10:13 08/20/17 08:00 Intake and Output: 08/20/17 08/20/17 06:59 18:59 Intake Total 640 Balance 640 - Medications Medications: Current Medications Amlodipine Besylate (Norvasc) 10 mg PO DAILY [facility] Last Admin: 08/20/17 10:13 Dose: 10 mg Aspirin (Aspirin Chewable) 81 mg PO DAILY [facility] Last Admin: 08/20/17 10:13 Dose: 81 mg Atorvastatin Calcium (Lipitor) 40 mg PO HS [facility] Last Admin: 08/19/17 21:09 Dose: 40 mg Cadexomer Iodine (Iodosorb) 0 gm TOP DAILY [facility] Last Admin: 08/19/17 14:48 Dose: 0.1 gm Doxercalciferol (Hectorol) 2 mcg IV TTS [facility] Last Admin: 08/19/17 11:49 Dose: 2 mcg Gabapentin (Neurontin) 100 mg PO DAILY [facility] PRN Reason: Protocol Last Admin: 08/20/17 10:14 Dose: 100 mg Heparin Sodium (Porcine) (Heparin) 5,000 units SC Q12 [facility] PRN Reason: Protocol Last Admin: 08/20/17 10:11 Dose: Not Given Heparin Sodium (Porcine) (Heparin) 1,200 units ICA TUTA [facility] Last Admin: 08/19/17 11:51 Dose: 1,200 units Heparin Sodium (Porcine) (Heparin) 1,200 units ICV TUTHSA [facility] Last Admin: 08/19/17 11:51 Dose: 1,200 units Hydralazine HCl (Apresoline) 10 mg IVP Q6 PRN PRN Reason: Tension Levetiracetam (Keppra 500mg Ivpb) 500 mg in 100 mls @ 400 mls/hr IVPB Q12 [facility] Last Admin: 08/20/17 10:10 Dose: 400 mls/hr Linezolid (Zyvox 600mg/300ml D5w) 600 mg in 300 mls @ 200 mls/hr IVPB Q12 [facility] PRN Reason: Protocol Stop: 08/26/17 22:01 Last Admin: 08/20/17 10:07 Dose: 200 mls/hr Insulin Human Lispro (Humalog Low) 0 units SC ACHS [facility] PRN Reason: Protocol Last Admin: 08/20/17 08:14 Dose: Not Given Metoprolol Tartrate (Lopressor) 25 mg PO Q12H [facility] Last Admin: 08/20/17 06:00 Dose: 25 mg Pantoprazole Sodium (Protonix Ec Tab) 40 mg PO 0600 [facility] Last Admin: 08/20/17 06:02 Dose: 40 mg Sevelamer HCl (Renagel) 1,600 mg PO TID [facility] Last Admin: 08/20/17 10:13 Dose: 1,600 mg Valsartan (Diovan) 320 mg PO DAILY [facility] Last Admin: 08/18/17 10:30 Dose: 320 mg Vitamin B Complex/Vit C/Folic Acid (Nephro-Callie) 1 tab PO DAILY [facility] Last Admin: 08/20/17 10:13 Dose: 1 tab - Labs Labs: 08/20/17 07:34 08/20/17 07:34 PT 10.7 Seconds (9.9-11.8) 08/16/17 04:45 INR 0.99 (0.93-1.08) 08/16/17 04:45 APTT 27.2 Seconds (23.7-30.8) 08/16/17 04:45 - Head Exam Head Exam: ATRAUMATIC, NORMAL INSPECTION, NORMOCEPHALIC - Eye Exam Eye Exam: EOMI, Normal appearance, PERRL Pupil Exam: NORMAL ACCOMODATION, PERRL - ENT Exam ENT Exam: Mucous Membranes Moist, Normal Exam - Neck Exam Neck Exam: Full ROM, Normal Inspection. absent: Lymphadenopathy, Thyromegaly - Respiratory Exam Respiratory Exam: Clear to Ausculation Bilateral, NORMAL BREATHING PATTERN - Cardiovascular Exam Cardiovascular Exam: REGULAR RHYTHM, RRR, +S1, +S2. absent: Gallop, Rubs - GI/Abdominal Exam GI & Abdominal Exam: Soft, Normal Bowel Sounds. absent: Rigid, Tenderness, Hyperactive Bowel Sounds - Extremities Exam Extremities Exam: Full ROM, Normal Capillary Refill, Normal Inspection. absent : Joint Swelling, Pedal Edema, Tenderness Additional comments: Right hallux abscess wrapped per Podiatry team. - Back Exam Back Exam: NORMAL INSPECTION. absent: CVA tenderness (L), CVA tenderness (R), paraspinal tenderness - Neurological Exam Neurological Exam: Alert, Awake, CN II-XII Intact, Normal Gait, Oriented x3 - Psychiatric Exam Psychiatric exam: Normal Affect, Normal Mood - Skin Skin Exam: Dry, Intact Assessment and Plan - Assessment and Plan (Free Text) Assessment: 57 F with multiple co-morbidities presented with profuse bleeding after dialysis catheter came out. s/p femoral catheter placement. HD TTS as per nephrology. Right right hallux infection MRSA +. MRI reviewed showing possible osteomyelitis. Questionable seizure episode on Friday during Dialysis. Expected to have permanent port catheter placed today. Plan: Dialysis Permacath General Surgery rec's appreciated. Plan to place permacath today. Patient NPO. ESRD on Dialysis Nephro c/s: Dr. Haji HD Today Dialysis TTS Morning AM K- 5.1. HD tomorrow. Will repeat labs post dialysis Patient had questionable seizure on Friday during Dialysis. Systolic BP went from 162 to 94. Continue Keppra. Per Neurology patient won't need home rx. Will monitor closely. Continue home Phoslo and B Complex Seizure Neurology rec's appreciated. During Dialysis on Friday BP went from 162 to 94. Rapid movements can occur. Continue Keppra Plan to discontinue Keppra upon discharge. R Hallux Infection- OM Pods C/s: Gallanter WCx: MRSA + ID rec's appreciated. abx IV Linezolid Plan for Conservative treatment for now. Per ID patient can receive 4 weeks of IV antibiotics via permacath. No PICC line indicated at this time. Hx HTN Continue Amlodipine, Valsartan, Metoprolol Hx CAD s/p Stents Continue home Lipitor, ASA PPX Heparin/Protoni <Bo Gutierrez - Last Filed: 08/21/17 07:38> Objective - Vital Signs/Intake and Output Vital Signs (last 24 hours): Temp Pulse Resp BP Pulse Ox 98.1 F 75 18 155/72 H 99 08/20/17 22:00 08/20/17 22:00 08/20/17 22:00 08/20/17 22:00 08/20/17 22:00 Intake and Output: 08/21/17 08/21/17 06:59 18:59 Intake Total 480 Output Total 0 Balance 480 - Medications Medications: Current Medications Amlodipine Besylate (Norvasc) 10 mg PO DAILY [facility] Last Admin: 08/20/17 10:13 Dose: 10 mg Aspirin (Aspirin Chewable) 81 mg PO DAILY [facility] Last Admin: 08/20/17 10:13 Dose: 81 mg Atorvastatin Calcium (Lipitor) 40 mg PO HS [facility] Last Admin: 08/20/17 21:36 Dose: 40 mg Cadexomer Iodine (Iodosorb) 0 gm TOP DAILY [facility] Last Admin: 08/20/17 09:46 Dose: 10 gm Doxercalciferol (Hectorol) 2 mcg IV TTS [facility] Last Admin: 08/19/17 11:49 Dose: 2 mcg Gabapentin (Neurontin) 100 mg PO DAILY [facility] PRN Reason: Protocol Last Admin: 08/20/17 10:14 Dose: 100 mg Heparin Sodium (Porcine) (Heparin) 5,000 units SC Q12 [facility] PRN Reason: Protocol Last Admin: 08/20/17 21:35 Dose: 5,000 units Heparin Sodium (Porcine) (Heparin) 1,200 units ICA TUTA [facility] Last Admin: 08/19/17 11:51 Dose: 1,200 units Heparin Sodium (Porcine) (Heparin) 1,200 units ICV TUTA [facility] Last Admin: 08/19/17 11:51 Dose: 1,200 units Hydralazine HCl (Apresoline) 10 mg IVP Q6 PRN PRN Reason: Tension Levetiracetam (Keppra 500mg Ivpb) 500 mg in 100 mls @ 400 mls/hr IVPB Q12 [facility] Last Admin: 08/21/17 00:09 Dose: 400 mls/hr Linezolid (Zyvox 600mg/300ml D5w) 600 mg in 300 mls @ 200 mls/hr IVPB Q12 [facility] PRN Reason: Protocol Stop: 08/26/17 22:01 Last Admin: 08/21/17 00:07 Dose: 200 mls/hr Insulin Human Lispro (Humalog Low) 0 units SC ACHS [facility] PRN Reason: Protocol Last Admin: 08/20/17 22:27 Dose: Not Given Metoprolol Tartrate (Lopressor) 25 mg PO Q12H [facility] Last Admin: 08/20/17 18:51 Dose: 25 mg Ondansetron HCl (Zofran Inj) 4 mg IVP Q6H PRN PRN Reason: Nausea/Vomiting Oxycodone/Acetaminophen (Percocet 5/325 Mg Tab) 2 tab PO Q4H PRN PRN Reason: Pain, moderate (4-7) Stop: 08/23/17 15:21 Pantoprazole Sodium (Protonix Ec Tab) 40 mg PO 0600 [facility] Last Admin: 08/21/17 05:52 Dose: 40 mg Sevelamer HCl (Renagel) 1,600 mg PO TID [facility] Last Admin: 08/20/17 18:51 Dose: 1,600 mg Valsartan (Diovan) 320 mg PO DAILY [facility] Last Admin: 08/18/17 10:30 Dose: 320 mg Vitamin B Complex/Vit C/Folic Acid (Nephro-Callie) 1 tab PO DAILY [facility] Last Admin: 08/20/17 10:13 Dose: 1 tab - Labs Labs: 08/20/17 07:34 08/20/17 07:34 PT 10.7 Seconds (9.9-11.8) 08/16/17 04:45 INR 0.99 (0.93-1.08) 08/16/17 04:45 APTT 27.2 Seconds (23.7-30.8) 08/16/17 04:45 Attending/Attestation - Attestation I have personally seen and examined this patient.: Yes I have fully participated in the care of the patient.: Yes I have reviewed all pertinent clinical information, including history, physical exam and plan: Yes Notes (Text): 08/20/17 57 year old female who presented after her dialysis catheter came out. She is s /p femoral catheter placement. Surgery is following and plan is for permacath placement today. Nephrology is also following for hemodialysis (TTS). She is also being seen by podiatry and ID for right hallux infection. MRI reviewed showing osteomyelitis. Continue with iv antibiotics. Patient will need 4 weeks of vanco during dialysis as per ID. Arterial doppler was reviewed and IR evaluation was appreciated. Neurology evaluation was also appreciated for possible seizure episode on Friday. Patient was started on keppra. Bo Gutierrez MD Hospitalist.
[2017-08-20] MEDS ORDERED: Midazolam 2 MG/2 ML VIAL ONE (14:47)
[2017-08-20] MEDS ORDERED: Oxycodone/Acetaminophen 5/325 mg Tab PO PRN (15:20)
--- NOTE | 2017-08-20 15:20 | PCM.SURG1 ---
Surgeon's Initial Post Op Note - Surgeon's Notes Surgeon: Dr. Bear Construction Manager: Gino Austin PGY2 Type of Anesthesia: Local Pre-Operative Diagnosis: ESRD needing HD Operative Findings: previous R IJ HD scar Post-Operative Diagnosis: Same Operation Performed: R IJ Permacath with tunneled catheter. Specimen/Specimens Removed: none Estimated Blood Loss: EBL {In ML}: 10 Blood Products Given: N/A Drains Used: No Drains Post-Op Condition: Good Date of Surgery/Procedure: 08/20/17 Time of Surgery/Procedure: 15:20
--- NOTE | 2017-08-20 16:39 | PN ---
DATE: 08/20/2017 SUBJECTIVE: The patient is in bed, in no acute distress, was seen early this morning. OBJECTIVE: VITAL SIGNS: On exam, temperature is 98, blood pressure is 150/70, respiratory rate of 20 and heart rate of 79. EXAMINATION OF HEENT: Unremarkable. NECK: Supple. LUNGS: Decreased breath sounds. HEART EXAM: Normal S1 and S2. ABDOMEN EXAMINATION: Soft and nontender. LABORATORY EXAMINATION: Reveals a white count of 8.7, hemoglobin of 7 and platelets of 315. Chemistries reveal a BUN of 35 and creatinine of 7.1. Microbiology reveals the foot culture is positive for MRSA, DOM is noted to be at 0.5 for vancomycin and blood cultures are negative. ASSESSMENT AND PLAN: This is a 57-year-old female with diabetes; end-stage renal disease, on hemodialysis with cerebrovascular accident x2; peripheral vascular disease; hypertension; diabetes mellitus; high cholesterol, admitted with an methicillin-resistant Staphylococcus aureus big toe cellulitis and osteomyelitis and we will give vancomycin 1 g IV each dialysis times next 2 to 4 weeks and podiatry and vascular workup in progress. The patient is currently on Zyvox, may switch to IV vancomycin upon discharge with 1 g at each dialysis upon discharge for 4 weeks. Estevan Licona MD
--- NOTE | 2017-08-20 19:24 | VASCULAR ---
PROCEDURE: Ultrasound and fluoroscopic tunneled right IJ dialysis catheter. CLINICAL HISTORY: ESRD needs new tunneled dialysis catheter. . PHYSICIAN(S): Mello Bear M.D. TECHNIQUE: The relative risks and indications for the procedure were explained to the patient and informed written consent obtained. The patient was placed supine on the arteriography table and the right neck/chest was prepped and draped in the usual sterile fashion. 1% Xylocaine was used to anesthetize the skin and soft tissues at the puncture site. Conscious sedation and monitoring were provided throughout the procedure by a nurse. Under direct ultrasound guidance, the rightinternal jugular vein was punctured with a micropuncture set. A 0.035 Glidewire was advanced into the IVC. Sequential dilatation was performed with subsequent placement of a 28cm Patterson II catheter with its tip in the right atrium. A retrograde tunnel below the right clavicle was performed. The catheter was trimmed and the hub attached. Both ports aspirate and inject easily. The catheter was secured and a dressing applied. The patient tolerated the procedure well. IMPRESSION: 1. Ultrasound and fluoroscopically placed right IJ tunneled dialysis catheter.
[2017-08-21] MEDS: Linezolid 600 mg in D5W 300 ml 600 MG/300 ML BAG IVPB SCH ×3 (00:07→22:52)
[2017-08-21] MEDS: levETIRAcetam 500mg IVPB 500 MG/100 ML BAG IVPB SCH ×3 (00:09→22:52)
[2017-08-21] MEDS: Pantoprazole 40 mg EC Tab PO SCH (05:52)
[2017-08-21] MEDS: Insulin Lispro (humaLOG) LOW Coverage SC SCH ×3 (08:00→16:30)
[2017-08-21 08:48] LABS: BASO # 0.04 K/mm3 (0.0-2.0); BASO % 0.5 % (0.0-3.0); EOS # 0.4 (0.0-0.7); EOS % 4.6 % (1.5-5.0); GRAN # 5.55 (1.4-6.5); GRAN % 68.4 % (50.0-68.0); LYMPH # 1.7 (1.2-3.4); LYMPH % 21.2 % (22.0-35.0); MEAN CELL VOLUME 88.6 fl (80.0-105.0); MEAN CORPUSCULAR HEMOGLOBIN 28.1 pg (25.0-35.0); MEAN CORPUSCULAR HGB CONC 31.8 g/dl (31.0-37.0); MEAN PLATELET VOLUME 9.1 fl (7.0-11.0); MONO # 0.4 (0.1-0.6); MONO % 5.3 % (1.0-6.0); RED CELL DISTRIBUTION WIDTH 17.8 % (11.5-14.5); WHITE BLOOD COUNT 8.1 10^3/ul (4.5-11.0)
[2017-08-21 08:51] LABS: ALB/GLOB RATIO 1.1 (1.1-1.8); BILIRUBIN,TOTAL 0.4 mg/dL (0.2-1.3); CALCIUM 7.6 mg/dL (8.4-10.5)
[2017-08-21 09:02] LABS: HEMATOCRIT 23.3 % (36.0-48.0)
[2017-08-21] MEDS: Multivitamin Vitamin B Complex (Nephro-Vite) Tab PO SCH (09:40)
[2017-08-21] MEDS: CADEXOMER IODINE 0.9% GEL 10G TOP SCH (10:00)
--- NOTE | 2017-08-21 10:52 | CP.PCM.PN ---
Subjective - Date & Time of Evaluation Date of Evaluation: 08/21/17 Time of Evaluation: 10:51 - Subjective Subjective: pt is seen and examined, follow up consult is dictated #[id number] sen in hd type and cross and transfuse 2 units prbc during hd Objective - Vital Signs/Intake and Output Vital Signs (last 24 hours): Temp Pulse Resp BP Pulse Ox 97.4 F L 78 20 122/76 98 08/21/17 09:04 08/21/17 09:04 08/21/17 09:04 08/21/17 09:04 08/21/17 09:04 Intake and Output: 08/21/17 08/21/17 06:59 18:59 Intake Total 880 Output Total 0 Balance 880 - Medications Medications: Current Medications Amlodipine Besylate (Norvasc) 10 mg PO DAILY [facility] Last Admin: 08/21/17 09:36 Dose: Not Given Aspirin (Aspirin Chewable) 81 mg PO DAILY [facility] Last Admin: 08/21/17 09:40 Dose: 81 mg Atorvastatin Calcium (Lipitor) 40 mg PO HS [facility] Last Admin: 08/20/17 21:36 Dose: 40 mg Cadexomer Iodine (Iodosorb) 0 gm TOP DAILY [facility] Last Admin: 08/20/17 09:46 Dose: 10 gm Doxercalciferol (Hectorol) 2 mcg IV TTS [facility] Last Admin: 08/19/17 11:49 Dose: 2 mcg Gabapentin (Neurontin) 100 mg PO DAILY [facility] PRN Reason: Protocol Last Admin: 08/21/17 09:36 Dose: 100 mg Heparin Sodium (Porcine) (Heparin) 5,000 units SC Q12 [facility] PRN Reason: Protocol Last Admin: 08/20/17 21:35 Dose: 5,000 units Heparin Sodium (Porcine) (Heparin) 1,200 units ICA TUTHSA [facility] Last Admin: 08/19/17 11:51 Dose: 1,200 units Heparin Sodium (Porcine) (Heparin) 1,200 units ICV TUTHSA [facility] Last Admin: 08/19/17 11:51 Dose: 1,200 units Hydralazine HCl (Apresoline) 10 mg IVP Q6 PRN PRN Reason: Tension Levetiracetam (Keppra 500mg Ivpb) 500 mg in 100 mls @ 400 mls/hr IVPB Q12 [facility] Last Admin: 08/21/17 00:09 Dose: 400 mls/hr Linezolid (Zyvox 600mg/300ml D5w) 600 mg in 300 mls @ 200 mls/hr IVPB Q12 [facility] PRN Reason: Protocol Stop: 08/26/17 22:01 Last Admin: 08/21/17 00:07 Dose: 200 mls/hr Insulin Human Lispro (Humalog Low) 0 units SC ACHS [facility] PRN Reason: Protocol Last Admin: 08/21/17 08:00 Dose: 1 units Metoprolol Tartrate (Lopressor) 25 mg PO Q12H [facility] Last Admin: 08/21/17 09:39 Dose: Not Given Ondansetron HCl (Zofran Inj) 4 mg IVP Q6H PRN PRN Reason: Nausea/Vomiting Oxycodone/Acetaminophen (Percocet 5/325 Mg Tab) 2 tab PO Q4H PRN PRN Reason: Pain, moderate (4-7) Stop: 08/23/17 15:21 Pantoprazole Sodium (Protonix Ec Tab) 40 mg PO 0600 [facility] Last Admin: 08/21/17 05:52 Dose: 40 mg Sevelamer HCl (Renagel) 1,600 mg PO TID [facility] Last Admin: 08/21/17 09:33 Dose: 1,600 mg Valsartan (Diovan) 320 mg PO DAILY [facility] Last Admin: 08/18/17 10:30 Dose: 320 mg Vitamin B Complex/Vit C/Folic Acid (Nephro-Callie) 1 tab PO DAILY [facility] Last Admin: 08/21/17 09:40 Dose: 1 tab - Labs Labs: 08/21/17 08:24 08/21/17 08:24 PT 10.7 Seconds (9.9-11.8) 08/16/17 04:45 INR 0.99 (0.93-1.08) 08/16/17 04:45 APTT 27.2 Seconds (23.7-30.8) 08/16/17 04:45
[2017-08-21] MEDS: Doxercalciferol 4 mcg/2 ml Inj IV SCH (11:42)
--- NOTE | 2017-08-21 11:46 | CP.PCM.PN ---
<Da Kennedy - Last Filed: 08/21/17 11:46> Subjective - Date & Time of Evaluation Date of Evaluation: 08/21/17 Time of Evaluation: 11:42 - Subjective Subjective: 57 year old female with PMH of DM seen at bedside for severe infected right great toe ulceration. Patient is seen laying comfortably at bedside, AAOx3, and in NAD. She denies any pain to her lower extremity. Dressing is c/d/i with no strikethrough noted today. She denies n/v/sob/cp/chills or f. She denies any other pedal complaint at this t6ime. Objective - Vital Signs/Intake and Output Vital Signs (last 24 hours): Temp Pulse Resp BP Pulse Ox 97.4 F L 78 20 122/76 98 08/21/17 09:04 08/21/17 09:04 08/21/17 09:04 08/21/17 09:04 08/21/17 09:04 Intake and Output: 08/21/17 08/21/17 06:59 18:59 Intake Total 880 Output Total 0 Balance 880 - Medications Medications: Current Medications Amlodipine Besylate (Norvasc) 10 mg PO DAILY [facility] Last Admin: 08/21/17 09:36 Dose: Not Given Aspirin (Aspirin Chewable) 81 mg PO DAILY [facility] Last Admin: 08/21/17 09:40 Dose: 81 mg Atorvastatin Calcium (Lipitor) 40 mg PO HS [facility] Last Admin: 08/20/17 21:36 Dose: 40 mg Cadexomer Iodine (Iodosorb) 0 gm TOP DAILY [facility] Last Admin: 08/20/17 09:46 Dose: 10 gm Doxercalciferol (Hectorol) 2 mcg IV TTS [facility] Last Admin: 08/19/17 11:49 Dose: 2 mcg Gabapentin (Neurontin) 100 mg PO DAILY [facility] PRN Reason: Protocol Last Admin: 08/21/17 09:36 Dose: 100 mg Heparin Sodium (Porcine) (Heparin) 5,000 units SC Q12 [facility] PRN Reason: Protocol Last Admin: 08/20/17 21:35 Dose: 5,000 units Heparin Sodium (Porcine) (Heparin) 1,200 units ICA TUTA [facility] Last Admin: 08/19/17 11:51 Dose: 1,200 units Heparin Sodium (Porcine) (Heparin) 1,200 units ICV TUTA [facility] Last Admin: 08/19/17 11:51 Dose: 1,200 units Hydralazine HCl (Apresoline) 10 mg IVP Q6 PRN PRN Reason: Tension Levetiracetam (Keppra 500mg Ivpb) 500 mg in 100 mls @ 400 mls/hr IVPB Q12 [facility] Last Admin: 08/21/17 00:09 Dose: 400 mls/hr Linezolid (Zyvox 600mg/300ml D5w) 600 mg in 300 mls @ 200 mls/hr IVPB Q12 [facility] PRN Reason: Protocol Stop: 08/26/17 22:01 Last Admin: 08/21/17 00:07 Dose: 200 mls/hr Insulin Human Lispro (Humalog Low) 0 units SC ACHS [facility] PRN Reason: Protocol Last Admin: 08/21/17 08:00 Dose: 1 units Metoprolol Tartrate (Lopressor) 25 mg PO Q12H [facility] Last Admin: 08/21/17 09:39 Dose: Not Given Ondansetron HCl (Zofran Inj) 4 mg IVP Q6H PRN PRN Reason: Nausea/Vomiting Oxycodone/Acetaminophen (Percocet 5/325 Mg Tab) 2 tab PO Q4H PRN PRN Reason: Pain, moderate (4-7) Stop: 08/23/17 15:21 Pantoprazole Sodium (Protonix Ec Tab) 40 mg PO 0600 [facility] Last Admin: 08/21/17 05:52 Dose: 40 mg Sevelamer HCl (Renagel) 1,600 mg PO TID [facility] Last Admin: 08/21/17 09:33 Dose: 1,600 mg Valsartan (Diovan) 320 mg PO DAILY [facility] Last Admin: 08/18/17 10:30 Dose: 320 mg Vitamin B Complex/Vit C/Folic Acid (Nephro-Callie) 1 tab PO DAILY [facility] Last Admin: 08/21/17 09:40 Dose: 1 tab - Labs Labs: 08/21/17 08:24 08/21/17 08:24 PT 10.7 Seconds (9.9-11.8) 08/16/17 04:45 INR 0.99 (0.93-1.08) 08/16/17 04:45 APTT 27.2 Seconds (23.7-30.8) 08/16/17 04:45 - Constitutional Appears: Well, Non-toxic, No Acute Distress - Extremities Exam Additional comments: Vasc: DP 1/4 bilaterally, PT is nonpalpable, popliteal pulses palpable, localized edema noted to the right hallux Ortho: no pain with palpation to the right great toe Neuro: protective sensation greatly diminished bilaterally Derm: Full thickness ulceration to the plantar right hallux, wound base is fibrotic and extensive nonviable tissue noted, no granular tissue noted to the ulceration, malodor is present, erythema present to the right hallux with no ascending cellulitis noted, periwound is hyperkeratotic and intact, wound does no probe to bone - Neurological Exam Neurological Exam: Alert, Awake, Oriented x3 - Psychiatric Exam Psychiatric exam: Normal Affect, Normal Mood Assessment and Plan - Assessment and Plan (Free Text) Assessment: 57 year old female seen at bedside for severe infected right great toe and OM secondary to ulceration and DM. Plan: Patient examined and evaluated with attending Dr. Mcdaniel Labs, charts, vitals reviewed (afebrile, WBC=8.1) Ulceration cleansed with saline and dressing changed with Iodosorb, 4x4, and kerlix MRI results- R distal phalanx suspicious for OM Wound culture results +MRSA ID recs appreciated Continue IV abx Excessive nonviable, gangrenous, necrotic tissue noted to the ulceration of right foot with delayed healing. Patient will go to the OR today at 4:00pm for debridement of ulceration on right foot of all nonviable, gangrenous, necrotic tissue. Patient will be NPO after breakfast. Patient explained procedure and post-operative course All pt's questions were answered to satisfaction NO guarantees were made Pt understands all risks, benefits, and complications of procedure Podiatry will continue to follow while in house <Nestor Mcdaniel - Last Filed: 08/21/17 18:18> Objective - Vital Signs/Intake and Output Vital Signs (last 24 hours): Temp Pulse Resp BP Pulse Ox 97.8 F 85 20 157/74 H 97 08/21/17 17:09 08/21/17 17:09 08/21/17 17:09 08/21/17 17:09 08/21/17 17:09 Intake and Output: 08/21/17 08/21/17 06:59 18:59 Intake Total 880 615 Output Total 0 Balance 880 615 - Medications Medications: Current Medications Acetaminophen (Tylenol 325mg Tab) 650 mg PO Q4H PRN PRN Reason: Pain, Mild (1-3) Amlodipine Besylate (Norvasc) 10 mg PO DAILY [facility] Last Admin: 08/21/17 09:36 Dose: Not Given Aspirin (Aspirin Chewable) 81 mg PO DAILY [facility] Last Admin: 08/21/17 09:40 Dose: 81 mg Atorvastatin Calcium (Lipitor) 40 mg PO HS [facility] Last Admin: 08/20/17 21:36 Dose: 40 mg Cadexomer Iodine (Iodosorb) 0 gm TOP DAILY [facility] Last Admin: 08/20/17 09:46 Dose: 10 gm Doxercalciferol (Hectorol) 2 mcg IVP TUTA [facility] Last Admin: 08/21/17 15:02 Dose: 2 mcg Gabapentin (Neurontin) 100 mg PO DAILY [facility] PRN Reason: Protocol Last Admin: 08/21/17 09:36 Dose: 100 mg Heparin Sodium (Porcine) (Heparin) 5,000 units SC Q12 [facility] PRN Reason: Protocol Last Admin: 08/20/17 21:35 Dose: 5,000 units Heparin Sodium (Porcine) (Heparin) 1,200 units ICA [facility] Last Admin: 08/21/17 15:02 Dose: 1,200 units Heparin Sodium (Porcine) (Heparin) 1,[facility] Last Admin: 08/21/17 15:03 Dose: 1,200 units Hydralazine HCl (Apresoline) 10 mg IVP Q6 PRN PRN Reason: Tension Levetiracetam (Keppra 500mg Ivpb) 500 mg in 100 mls @ 400 mls/hr IVPB Q12 [facility] Last Admin: 08/21/17 00:09 Dose: 400 mls/hr Linezolid (Zyvox 600mg/300ml D5w) 600 mg in 300 mls @ 200 mls/hr IVPB Q12 [facility] PRN Reason: Protocol Stop: 08/26/17 22:01 Last Admin: 08/21/17 00:07 Dose: 200 mls/hr Insulin Human Lispro (Humalog Low) 0 units SC ACHS [facility] PRN Reason: Protocol Last Admin: 08/21/17 08:00 Dose: 1 units Metoprolol Tartrate (Lopressor) 25 mg PO Q12H [facility] Last Admin: 08/21/17 09:39 Dose: Not Given Ondansetron HCl (Zofran Inj) 4 mg IVP Q6H PRN PRN Reason: Nausea/Vomiting Oxycodone/Acetaminophen (Percocet 5/325 Mg Tab) 2 tab PO Q4H PRN PRN Reason: Pain, moderate (4-7) Stop: 08/23/17 15:21 Oxycodone/Acetaminophen (Percocet 5/325 Mg Tab) 1 tab PO Q4H PRN PRN Reason: Pain, moderate (4-7) Stop: 08/24/17 16:34 Oxycodone/Acetaminophen (Percocet 5/325 Mg Tab) 2 tab PO Q4H PRN PRN Reason: Pain, severe (8-10) Stop: 08/24/17 16:34 Pantoprazole Sodium (Protonix Ec Tab) 40 mg PO 0600 [facility] Last Admin: 08/21/17 05:52 Dose: 40 mg Sevelamer HCl (Renagel) 1,600 mg PO TID [facility] Last Admin: 08/21/17 09:33 Dose: 1,600 mg Valsartan (Diovan) 320 mg PO DAILY [facility] Last Admin: 08/18/17 10:30 Dose: 320 mg Vitamin B Complex/Vit C/Folic Acid (Nephro-Callie) 1 tab PO DAILY [facility] Last Admin: 08/21/17 09:40 Dose: 1 tab - Labs Labs: 08/21/17 08:24 08/21/17 08:24 PT 10.7 Seconds (9.9-11.8) 08/16/17 04:45 INR 0.99 (0.93-1.08) 08/16/17 04:45 APTT 27.2 Seconds (23.7-30.8) 08/16/17 04:45 Attending/Attestation - Attestation I have personally seen and examined this patient.: Yes I have fully participated in the care of the patient.: Yes I have reviewed all pertinent clinical information, including history, physical exam and plan: Yes
--- NOTE | 2017-08-21 13:44 | CP.PCM.PN ---
<Abhijeet Ignacion - Last Filed: 08/21/17 13:45> Subjective - Date & Time of Evaluation Date of Evaluation: 08/21/17 Time of Evaluation: 09:30 - Subjective Subjective: Medicine Note Pt S&E at bedside this AM. No acute events overnight. Pt at this time is AAOx3. Right foot dressing C/D/I. Right IJ permacath in place. Plan for HD today. denies F/C CP/SOB N/V/D Objective - Vital Signs/Intake and Output Vital Signs (last 24 hours): Temp Pulse Resp BP Pulse Ox 98.3 F 82 20 161/78 H 98 08/21/17 13:32 08/21/17 13:32 08/21/17 13:32 08/21/17 13:32 08/21/17 09:04 Intake and Output: 08/21/17 08/21/17 06:59 18:59 Intake Total 880 325 Output Total 0 Balance 880 325 - Medications Medications: Current Medications Amlodipine Besylate (Norvasc) 10 mg PO DAILY [facility] Last Admin: 08/21/17 09:36 Dose: Not Given Aspirin (Aspirin Chewable) 81 mg PO DAILY [facility] Last Admin: 08/21/17 09:40 Dose: 81 mg Atorvastatin Calcium (Lipitor) 40 mg PO HS [facility] Last Admin: 08/20/17 21:36 Dose: 40 mg Cadexomer Iodine (Iodosorb) 0 gm TOP DAILY [facility] Last Admin: 08/20/17 09:46 Dose: 10 gm Doxercalciferol (Hectorol) 2 mcg IV TTS [facility] Last Admin: 08/19/17 11:49 Dose: 2 mcg Gabapentin (Neurontin) 100 mg PO DAILY [facility] PRN Reason: Protocol Last Admin: 08/21/17 09:36 Dose: 100 mg Heparin Sodium (Porcine) (Heparin) 5,000 units SC Q12 [facility] PRN Reason: Protocol Last Admin: 08/20/17 21:35 Dose: 5,000 units Heparin Sodium (Porcine) (Heparin) 1,200 units ICA TUTA [facility] Last Admin: 08/19/17 11:51 Dose: 1,200 units Heparin Sodium (Porcine) (Heparin) 1,200 units ICV TUTHSA [facility] Last Admin: 08/19/17 11:51 Dose: 1,200 units Hydralazine HCl (Apresoline) 10 mg IVP Q6 PRN PRN Reason: Tension Levetiracetam (Keppra 500mg Ivpb) 500 mg in 100 mls @ 400 mls/hr IVPB Q12 [facility] Last Admin: 08/21/17 00:09 Dose: 400 mls/hr Linezolid (Zyvox 600mg/300ml D5w) 600 mg in 300 mls @ 200 mls/hr IVPB Q12 [facility] PRN Reason: Protocol Stop: 08/26/17 22:01 Last Admin: 08/21/17 00:07 Dose: 200 mls/hr Insulin Human Lispro (Humalog Low) 0 units SC ACHS [facility] PRN Reason: Protocol Last Admin: 08/21/17 08:00 Dose: 1 units Metoprolol Tartrate (Lopressor) 25 mg PO Q12H [facility] Last Admin: 08/21/17 09:39 Dose: Not Given Ondansetron HCl (Zofran Inj) 4 mg IVP Q6H PRN PRN Reason: Nausea/Vomiting Oxycodone/Acetaminophen (Percocet 5/325 Mg Tab) 2 tab PO Q4H PRN PRN Reason: Pain, moderate (4-7) Stop: 08/23/17 15:21 Pantoprazole Sodium (Protonix Ec Tab) 40 mg PO 0600 [facility] Last Admin: 08/21/17 05:52 Dose: 40 mg Sevelamer HCl (Renagel) 1,600 mg PO TID [facility] Last Admin: 08/21/17 09:33 Dose: 1,600 mg Valsartan (Diovan) 320 mg PO DAILY [facility] Last Admin: 08/18/17 10:30 Dose: 320 mg Vitamin B Complex/Vit C/Folic Acid (Nephro-Callie) 1 tab PO DAILY [facility] Last Admin: 08/21/17 09:40 Dose: 1 tab - Labs Labs: 08/21/17 08:24 08/21/17 08:24 PT 10.7 Seconds (9.9-11.8) 08/16/17 04:45 INR 0.99 (0.93-1.08) 08/16/17 04:45 APTT 27.2 Seconds (23.7-30.8) 08/16/17 04:45 - Constitutional Appears: Non-toxic, No Acute Distress - Eye Exam Eye Exam: EOMI. absent: Scleral icterus - ENT Exam ENT Exam: Mucous Membranes Moist - Respiratory Exam Respiratory Exam: NORMAL BREATHING PATTERN. absent: Accessory Muscle Use, Respiratory Distress - Cardiovascular Exam Cardiovascular Exam: +S1, +S2. absent: Bradycardia, Tachycardia - GI/Abdominal Exam GI & Abdominal Exam: Soft, Normal Bowel Sounds. absent: Distended, Tenderness - Extremities Exam Additional comments: Right IJ permacath in place. Dressing C/D/I - Back Exam Back Exam: absent: CVA tenderness (L), CVA tenderness (R) - Neurological Exam Neurological Exam: Alert, Awake, Oriented x3 - Psychiatric Exam Psychiatric exam: Normal Affect - Skin Skin Exam: Normal Color, Warm Assessment and Plan - Assessment and Plan (Free Text) Assessment: 57 F with multiple co-morbidities presented with profuse bleeding after dialysis catheter came out. s/p femoral catheter placement. HD TTS as per nephrology. Right right hallux infection MRSA +. MRI reviewed showing possible osteomyelitis. Questionable seizure episode on Friday during Dialysis. Dialysis Permacath Permcath Placed POD#1 Dressing C/D/I Dialysis today. ESRD on Dialysis Nephro c/s: Dr. Haji HD Today Dialysis TTS Morning AM K- 5.0. HD today Patient had questionable seizure on Friday during Dialysis. Systolic BP went from 162 to 94. Continue Keppra. Per Neurology patient won't need home rx. Will monitor closely. Continue home Phoslo and B Complex Seizure Neurology rec's appreciated. During Dialysis on Friday BP went from 162 to 94. Rapid movements can occur. Continue Keppra Plan to discontinue Keppra upon discharge. R Hallux Infection- OM Pods C/s: Gallanter WCx: MRSA + ID rec's appreciated. abx IV Linezolid Plan for Local debridement under local anesthesia today per Podiatry. During dialysis, 1gm of IV Vanc during dialysis Hx HTN Continue Amlodipine, Valsartan, Metoprolol Hx CAD s/p Stents Continue home Lipitor, ASA PPX Heparin/PTX Carlos Ignacio PGY1 <Bo Gutierrez - Last Filed: 08/21/17 15:40> Objective - Vital Signs/Intake and Output Vital Signs (last 24 hours): Temp Pulse Resp BP Pulse Ox 98.3 F 82 20 184/80 H 98 08/21/17 13:59 08/21/17 13:59 08/21/17 13:59 08/21/17 13:59 08/21/17 09:04 Intake and Output: 08/21/17 08/21/17 06:59 18:59 Intake Total 880 615 Output Total 0 Balance 880 615 - Medications Medications: Current Medications Amlodipine Besylate (Norvasc) 10 mg PO DAILY [facility] Last Admin: 08/21/17 09:36 Dose: Not Given Aspirin (Aspirin Chewable) 81 mg PO DAILY [facility] Last Admin: 08/21/17 09:40 Dose: 81 mg Atorvastatin Calcium (Lipitor) 40 mg PO HS [facility] Last Admin: 08/20/17 21:36 Dose: 40 mg Cadexomer Iodine (Iodosorb) 0 gm TOP DAILY [facility] Last Admin: 08/20/17 09:46 Dose: 10 gm Doxercalciferol (Hectorol) 2 mcg IVP TUTA [facility] Last Admin: 08/21/17 15:02 Dose: 2 mcg Gabapentin (Neurontin) 100 mg PO DAILY [facility] PRN Reason: Protocol Last Admin: 08/21/17 09:36 Dose: 100 mg Heparin Sodium (Porcine) (Heparin) 5,000 units SC Q12 [facility] PRN Reason: Protocol Last Admin: 08/20/17 21:35 Dose: 5,000 units Heparin Sodium (Porcine) (Heparin) 1,[facility] Last Admin: 08/21/17 15:02 Dose: 1,200 units Heparin Sodium (Porcine) (Heparin) 1,200 [facility] Last Admin: 08/21/17 15:03 Dose: 1,200 units Hydralazine HCl (Apresoline) 10 mg IVP Q6 PRN PRN Reason: Tension Levetiracetam (Keppra 500mg Ivpb) 500 mg in 100 mls @ 400 mls/hr IVPB Q12 [facility] 234 [facility]S [facility] Last Admin: 08/21/17 00:09 Dose: 400 mls/hr Linezolid (Zyvox 600mg/300ml D5w) 600 mg in 300 mls @ 200 mls/hr IVPB Q12 [facility] 234 [facility] PRN Reason: Protocol Stop: 08/26/17 22:01 Last Admin: 08/21/17 00:07 Dose: 200 mls/hr Insulin Human Lispro (Humalog Low) 0 units SC ACHS [facility] PRN Reason: Protocol Last Admin: 08/21/17 08:00 Dose: 1 units Metoprolol Tartrate (Lopressor) 25 mg PO Q12H [facility] 234 [facility] Last Admin: 08/21/17 09:39 Dose: Not Given Ondansetron HCl (Zofran Inj) 4 mg IVP Q6H PRN PRN Reason: Nausea/Vomiting Oxycodone/Acetaminophen (Percocet 5/325 Mg Tab) 2 tab PO Q4H PRN PRN Reason: Pain, moderate (4-7) Stop: 08/23/17 15:21 Pantoprazole Sodium (Protonix Ec Tab) 40 mg PO 0600 [facility] 234 [facility]S [facility] Last Admin: 08/21/17 05:52 Dose: 40 mg Sevelamer HCl (Renagel) 1,600 mg PO TID [facility] 234 [facility]S [facility] Last Admin: 08/21/17 09:33 Dose: 1,600 mg Valsartan (Diovan) 320 mg PO DAILY [facility] 234 [facility]S [facility] Last Admin: 08/18/17 10:30 Dose: 320 mg Vitamin B Complex/Vit C/Folic Acid (Nephro-Callie) 1 tab PO DAILY [facility] 234 [facility]S [facility] Last Admin: 08/21/17 09:40 Dose: 1 tab - Labs Labs: 08/21/17 08:24 08/21/17 08:24 PT 10.7 Seconds (9.9-11.8) 08/16/17 04:45 INR 0.99 (0.93-1.08) 08/16/17 04:45 APTT 27.2 Seconds (23.7-30.8) 08/16/17 04:45 Attending/Attestation - Attestation I have personally seen and examined this patient.: Yes I have fully participated in the care of the patient.: Yes I have reviewed all pertinent clinical information, including history, physical exam and plan: Yes Notes (Text): 08/21/17 15:38 57 year old female who presented after her dialysis catheter came out. Surgery is following and patient is s/p permacath placement POD #1. Femoral catheter should be removed. Nephrology is also following for hemodialysis (TTS) and ordered prbc transfusion for anemia. She is also being seen by podiatry and ID for right hallux infection. MRI reviewed showing osteomyelitis. Continue with iv antibiotics. Patient will need 4 weeks of vanco during dialysis as per ID. Arterial doppler was reviewed and IR evaluation was appreciated. Case was discussed with podiatry who plans for possible debridement later today. Neurology evaluation was also appreciated for possible seizure episode on Friday. Patient was started on keppra. Bo Gutierrez MD Hospitalist.
--- NOTE | 2017-08-21 14:18 | CP.PCM.PN ---
Subjective - Date & Time of Evaluation Date of Evaluation: 08/21/17 Time of Evaluation: 07:00 - Subjective Subjective: Surgery Progress Note for Dr. Yeung 57F seen and examined at bedside. Patient doing well. Denies pain at site of permacath. DEXTER Objective - Vital Signs/Intake and Output Vital Signs (last 24 hours): Temp Pulse Resp BP Pulse Ox 98.3 F 82 20 184/80 H 98 08/21/17 13:59 08/21/17 13:59 08/21/17 13:59 08/21/17 13:59 08/21/17 09:04 Intake and Output: 08/21/17 08/21/17 06:59 18:59 Intake Total 880 375 Output Total 0 Balance 880 375 - Medications Medications: Current Medications Amlodipine Besylate (Norvasc) 10 mg PO DAILY [facility] Last Admin: 08/21/17 09:36 Dose: Not Given Aspirin (Aspirin Chewable) 81 mg PO DAILY [facility] Last Admin: 08/21/17 09:40 Dose: 81 mg Atorvastatin Calcium (Lipitor) 40 mg PO HS [facility] Last Admin: 08/20/17 21:36 Dose: 40 mg Cadexomer Iodine (Iodosorb) 0 gm TOP DAILY [facility] Last Admin: 08/20/17 09:46 Dose: 10 gm Doxercalciferol (Hectorol) 2 mcg IV TTS [facility] Last Admin: 08/19/17 11:49 Dose: 2 mcg Gabapentin (Neurontin) 100 mg PO DAILY [facility] PRN Reason: Protocol Last Admin: 08/21/17 09:36 Dose: 100 mg Heparin Sodium (Porcine) (Heparin) 5,000 units SC Q12 [facility] PRN Reason: Protocol Last Admin: 08/20/17 21:35 Dose: 5,000 units Heparin Sodium (Porcine) (Heparin) 1,200 units ICA TUTHSA [facility] Last Admin: 08/19/17 11:51 Dose: 1,200 units Heparin Sodium (Porcine) (Heparin) 1,200 units ICV TUTHSA [facility] Last Admin: 08/19/17 11:51 Dose: 1,200 units Hydralazine HCl (Apresoline) 10 mg IVP Q6 PRN PRN Reason: Tension Levetiracetam (Keppra 500mg Ivpb) 500 mg in 100 mls @ 400 mls/hr IVPB Q12 [facility] Last Admin: 08/21/17 00:09 Dose: 400 mls/hr Linezolid (Zyvox 600mg/300ml D5w) 600 mg in 300 mls @ 200 mls/hr IVPB Q12 [facility] PRN Reason: Protocol Stop: 08/26/17 22:01 Last Admin: 08/21/17 00:07 Dose: 200 mls/hr Insulin Human Lispro (Humalog Low) 0 units SC ACHS [facility] PRN Reason: Protocol Last Admin: 08/21/17 08:00 Dose: 1 units Metoprolol Tartrate (Lopressor) 25 mg PO Q12H [facility] Last Admin: 08/21/17 09:39 Dose: Not Given Ondansetron HCl (Zofran Inj) 4 mg IVP Q6H PRN PRN Reason: Nausea/Vomiting Oxycodone/Acetaminophen (Percocet 5/325 Mg Tab) 2 tab PO Q4H PRN PRN Reason: Pain, moderate (4-7) Stop: 08/23/17 15:21 Pantoprazole Sodium (Protonix Ec Tab) 40 mg PO 0600 [facility] Last Admin: 08/21/17 05:52 Dose: 40 mg Sevelamer HCl (Renagel) 1,600 mg PO TID [facility] Last Admin: 08/21/17 09:33 Dose: 1,600 mg Valsartan (Diovan) 320 mg PO DAILY [facility] Last Admin: 08/18/17 10:30 Dose: 320 mg Vitamin B Complex/Vit C/Folic Acid (Nephro-Callie) 1 tab PO DAILY [facility] Last Admin: 08/21/17 09:40 Dose: 1 tab - Labs Labs: 08/21/17 08:24 08/21/17 08:24 PT 10.7 Seconds (9.9-11.8) 08/16/17 04:45 INR 0.99 (0.93-1.08) 08/16/17 04:45 APTT 27.2 Seconds (23.7-30.8) 08/16/17 04:45 - Constitutional Appears: Non-toxic, No Acute Distress - Neck Exam Additional comments: right IJ permacath in place - Respiratory Exam Respiratory Exam: Clear to Ausculation Bilateral, NORMAL BREATHING PATTERN - Cardiovascular Exam Cardiovascular Exam: REGULAR RHYTHM, +S1, +S2 - GI/Abdominal Exam GI & Abdominal Exam: Soft. absent: Distended, Firm, Guarding, Rigid, Tenderness , Rebound - Extremities Exam Additional comments: right femoral catheter in place - pulled - Neurological Exam Neurological Exam: Alert, Awake Assessment and Plan - Assessment and Plan (Free Text) Assessment: 57F s/p permacath in right IJ POD1 Plan: monitor permacath site remove right femoral catheter Further recs discuss with Dr. Gamal Paulino, PGY2
[2017-08-21] MEDS ORDERED: Lidocaine 2% Inj (20ml) ONE (14:52)
[2017-08-21] MEDS ORDERED: Bupivacaine 0.5% Inj(30mL) ONE (14:52)
[2017-08-21] MEDS ORDERED: Doxercalciferol 4 mcg/2 ml Inj IVP SCH (15:02)
[2017-08-21] MEDS ORDERED: Propofol 10 mg/ml Inj (20 ML) ONE (16:00)
[2017-08-21] MEDS ORDERED: Oxycodone/Acetaminophen 5/325 mg Tab PO PRN ×2 (16:33)
--- NOTE | 2017-08-21 16:42 | PCM.SURG1 ---
<MarciaDa Shante - Last Filed: 08/21/17 16:44> Surgeon's Initial Post Op Note - Surgeon's Notes Surgeon: Dr. Mcdaniel DPM Clinical Dermatologist: Dr. Kennedy DPM PGY-1, Remigio MSY-4 Type of Anesthesia: MAC, Local Anesthesia Administered By: Dr. Mcguire Pre-Operative Diagnosis: nonviable, necrotic, gangrenous infected right plantar hallux ulceration Operative Findings: see dictation; total of 15cc of 1:1 mixture of marcaine .5% plain and lidocaine 2% plain Post-Operative Diagnosis: nonviable, necrotic, gangrenous infected right plantar hallux ulceration Operation Performed: debridement of nonviable, necrotic, gangrenous infected right plantar hallux ulceration via Versejet Specimen/Specimens Removed: none Estimated Blood Loss: EBL {In ML}: 3 Blood Products Given: N/A Drains Used: No Drains Post-Op Condition: Good Date of Surgery/Procedure: 08/21/17 Time of Surgery/Procedure: 04:00 <Nestor Mcdaniel - Last Filed: 08/21/17 18:19> Attending/Attestation - Attestation I have personally seen and examined this patient.: Yes I have fully participated in the care of the patient.: Yes I have reviewed all pertinent clinical information: Yes
--- NOTE | 2017-08-21 20:26 | PN ---
DATE: 08/21/2017 SUBJECTIVE: The patient is seen early this morning. No fevers, no chills. PHYSICAL EXAMINATION: VITAL SIGNS: Temperature is 98, blood pressure is 190/70, respiratory rate of 16. HEENT: Unremarkable. NECK: Supple. LUNGS: Decreased breath sounds. HEART: Normal S1, S2. ABDOMEN: Soft, nontender. LABORATORY EXAMINATION: Reveals a white count of 8.1, hemoglobin of 7, platelets of 372. BUN of 40, creatinine of . The left foot is MRSA. Currently, the patient still on the Zyvox. ASSESSMENT AND PLAN: The patient is a 57-year-old female with diabetes and end-stage renal disease, on hemodialysis; cerebrovascular accident x2; peripheral vascular disease; hypertension; diabetes mellitus; high cholesterol admitted with methicillin-resistant Staphylococcus aureus; left big toe cellulitis and osteomyelitis with Staph aureus. Cellulitis and osteomyelitis, can give vancomycin 1 g at each dialysis in the next 4 weeks and currently on Zyvox, may switch to IV vanco upon discharge. Estevan Licona MD
[2017-08-22] MEDS: Pantoprazole 40 mg EC Tab PO SCH (06:52)
[2017-08-22 06:54] VITALS: PULSE 70
[2017-08-22 08:08] LABS: HEMATOCRIT 31.2 % (36.0-48.0); MEAN CELL VOLUME 87.6 fl (80.0-105.0); MEAN CORPUSCULAR HEMOGLOBIN 28.4 pg (25.0-35.0); MEAN CORPUSCULAR HGB CONC 32.4 g/dl (31.0-37.0); MEAN PLATELET VOLUME 8.7 fl (7.0-11.0); RED CELL DISTRIBUTION WIDTH 16.7 % (11.5-14.5); WHITE BLOOD COUNT 8.7 10^3/ul (4.5-11.0)
[2017-08-22 08:18] LABS: CALCIUM 8.1 mg/dL (8.4-10.5); POTASSIUM 4.3 mmol/L (3.6-5.0)
--- NOTE | 2017-08-22 08:37 | CON ---
FOLLOWUP RENAL CONSULTATION LOCATION: The patient is located in [facility] room #574, bed #2. REQUESTED BY: Bo Gutierrez MD. REASON FOR FOLLOWUP: End-stage renal disease, continuation of hemodialysis. HISTORY OF PRESENT ILLNESS: Ms. Bettencourt is a 57-year-old obese [place] female with a past medical history significant for longstanding hypertension, diabetes, coronary artery disease, CVA, peripheral vascular disease, end-stage renal disease, on hemodialysis for the last 4 months, was admitted to the [facility] after noticing bleeding from the Perm-A-Cath site and also dislodged Perm-A-Cath. The patient underwent a femoral catheter placement on Friday and the patient was dialyzed on Friday through the femoral catheter. Now, the patient underwent Perm-A-Cath placement by Dr. Mello Bear yesterday. The patient is being dialyzed and UF goal is about 3 liters. The patient is complaining of a slight discomfort in the chest. No shortness of breath. No nausea, vomiting, or diarrhea. No fever. No cough. Right femoral cath was removed this morning. PHYSICAL EXAMINATION: GENERAL: Ms. Bettencourt is a 57-year-old obese [place] female, well built, well nourished, not in distress. VITAL SIGNS: Blood pressure 132/62, pulse 84, respirations 18, temperature 98.4, height 5 feet, and weight is 171 pounds. HEENT: Pupils normal, reactive to light and accommodation. Conjunctivae pink. Sclerae anicteric. Tongue is moist. Trachea is midline. LUNGS: Symmetric on both sides. Bilateral breath sounds present. Clear on auscultation. CVS: [place] at the fifth intercostal space, midclavicular line. S1 and S2 audible. No murmur or gallop. ABDOMEN: Normal in appearance, soft, tympanic. No guarding. No rigidity. No hepatosplenomegaly. 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 Sensory and motor system are grossly within normal limits. EXTREMITIES: No cyanosis. No clubbing. No edema. The patient has a dressing to the right big toe. MEDICATIONS: Her current medications include as follows; hydralazine 10 mg IV q. 6 hours p.r.n., aspirin 81 mg daily, Diovan on hold, Hectorol 2 mcg 3 times a week, subcutaneous heparin 5000 q. 12 hours, heparin 1200 units in each port of the Perm-A-Cath, insulin lispro per sliding scale, Keppra 500 mg q. 12 hours, Lipitor 40 mg p.o. at bedtime, metoprolol 25 mg p.o. q. 12 hours, Nephro-Callie 1 tablet daily, Neurontin 100 mg daily, amlodipine 10 mg daily, Percocet 2 tablets p.o. q. 4 hours p.r.n., Protonix 40 mg p.o., Renvela 800 mg 2 tablets p.o. t.i.d., Zofran 4 mg IV q. 6 hours p.r.n., Zyvox 600 mg IV q. 12 hours. LABORATORY DATA: As of 08/21/2017, WBC 8.1, hemoglobin 7.4, hematocrit 23.3, platelets 372. Sodium 136, potassium 5.0, chloride 96, CO2 26, BUN 40, creatinine 8.9, glucose 155, calcium 7.6, phosphorus is 8.4, total bilirubin 0.4, AST 41, ALT 22, alkaline phosphatase 69, total protein is 7, and albumin is 3.6. Blood culture x2 as of 08/16/2017 negative day #5 and wound culture is positive for MRSA from the right foot. ASSESSMENT AND PLAN: In summary, Ms. Bettencourt is a 57-year-old obese female with a history of hypertension, diabetes, hyperlipidemia, coronary artery disease, cerebrovascular disease, cerebrovascular accident, end-stage renal disease, was admitted with dislodged Perm-A-cath, bleeding from the Perm-A-cath site, and hyperkalemia, was started on dialysis through the right femoral catheter on Friday, and now the patient underwent Perm-A-cath by interventional radiologist, Dr. Mello Bear, on 08/20/2017, and the right femoral catheter was removed this morning. 1. End-stage renal disease. Continue hemodialysis 3 times a week, Friday, , Friday. 2. Anemia secondary to recent bleeding from the Perm-A-cath site and procedure, and cannot rule out secondary to antibiotics, Zyvox, and bone marrow suppression. 3. Hypertension. 4. Status post hyperkalemia. Potassium this morning is 5.0. 5. Diabetes. 6. Right big toe possible osteomyelitis. Continue intravenous antibiotics as per Infectious Disease recommendations. We will type and cross and transfuse 2 units of packed red blood cells if possible during dialysis. Otherwise, we will transfuse 1 unit. Thank you for allowing me to participate in your patient's care. We will like to follow up in outpatient hemodialysis at [facility] as per the patient's request. Anna Haji MD
[2017-08-22 08:52] VITALS: RESP 22; TEMP 98.6; O2SAT 98
[2017-08-22] MEDS: levETIRAcetam 500mg IVPB 500 MG/100 ML BAG IVPB SCH (10:14)
[2017-08-22] MEDS: Multivitamin Vitamin B Complex (Nephro-Vite) Tab PO SCH (10:21)
[2017-08-22] MEDS: Insulin Lispro (humaLOG) LOW Coverage SC SCH ×2 (10:24→16:06)
[2017-08-22] MEDS: CADEXOMER IODINE 0.9% GEL 10G TOP SCH (10:25)
--- NOTE | 2017-08-22 12:41 | PN ---
DATE: 08/22/2017 SUBJECTIVE: The patient is in bed, in no acute distress, and nontoxic. PHYSICAL EXAMINATION: VITAL SIGNS: Temperature is 98, blood pressure is 170/80, and respiratory rate of 22. HEENT: Examination of HEENT is unremarkable. NECK: Supple. LUNGS: Decreased breath sounds. HEART: Normal S1 and S2. ABDOMEN: Emanation is soft and nontender. LABORATORY DATA: Examination reveals a white count of 8.7, hemoglobin of 10, and platelets of 296. Her anticoagulation is noted. A BUN of 17 and creatinine of 5.7. Microbiology is noted. ASSESSMENT AND PLAN: She is a 57-year-old female with diabetes mellitus, end-stage renal disease, hemodialysis. cerebrovascular accident, peripheral vascular disease, hypertension, and high cholesterol admitted with methicillin-resistant Staphylococcus aureus, left big toe cellulitis and osteomyelitis. The patient was taken to the OR yesterday and ahead of debridement by Dr. Mcdaniel, operative note is reviewed. Would treat with vancomycin 1 gram at each dialysis times 4 weeks. Upon discharge, currently on Zyvox. Estevan Licona MD
--- NOTE | 2017-08-22 12:54 | CP.PCM.PN ---
<Da Kennedy - Last Filed: 08/22/17 12:47> Subjective - Date & Time of Evaluation Date of Evaluation: 08/22/17 Time of Evaluation: 10:00 - Subjective Subjective: Podiatry progress note for Dr. Mcdaniel: 57 year old female with PMH of DM seen at bedside for +OM distal phalanx and 1 day s/p debridement of right hallux plantar ulceration . Patient is seen at bedside laying comfortably in bed, AAOx3, and in NAD. She denies any pain to her lower extremity. Dressing is c/d/i with no strikethrough noted. She denies n /v/sob/cp/chills or f. She denies any other pedal complaint at this time. Objective - Vital Signs/Intake and Output Vital Signs (last 24 hours): Temp Pulse Resp BP Pulse Ox 98.6 F 70 22 174/86 H 98 08/22/17 07:00 08/22/17 07:00 08/22/17 07:00 08/22/17 10:13 08/22/17 07:00 Intake and Output: 08/22/17 08/22/17 06:59 18:59 Intake Total 600 Balance 600 - Medications Medications: Current Medications Acetaminophen (Tylenol 325mg Tab) 650 mg PO Q4H PRN PRN Reason: Pain, Mild (1-3) Amlodipine Besylate (Norvasc) 10 mg PO DAILY [facility] Last Admin: 08/22/17 10:13 Dose: 10 mg Aspirin (Aspirin Chewable) 81 mg PO DAILY [facility] Last Admin: 08/22/17 10:13 Dose: 81 mg Atorvastatin Calcium (Lipitor) 40 mg PO HS [facility] Last Admin: 08/21/17 22:52 Dose: 40 mg Cadexomer Iodine (Iodosorb) 0 gm TOP DAILY [facility] Last Admin: 08/22/17 10:25 Dose: Not Given Collagenase (Santyl) 1 gm TOP DAILY [facility] Doxercalciferol (Hectorol) 2 mcg IVP [facility] Last Admin: 08/21/17 15:02 Dose: 2 mcg Gabapentin (Neurontin) 100 mg PO DAILY [facility] PRN Reason: Protocol Last Admin: 08/22/17 10:13 Dose: 100 mg Heparin Sodium (Porcine) (Heparin) 5,000 units SC Q12 SHILO PRN Reason: Protocol Last Admin: 08/21/17 22:52 Dose: 5,000 units Heparin Sodium (Porcine) (Heparin) 1,200 units ICA [facility] Last Admin: 08/21/17 15:02 Dose: 1,200 units Heparin Sodium (Porcine) (Heparin) 1,200 units ICV [facility] Last Admin: 08/21/17 15:03 Dose: 1,200 units Hydralazine HCl (Apresoline) 10 mg IVP Q6 PRN PRN Reason: Tension Levetiracetam (Keppra 500mg Ivpb) 500 mg in 100 mls @ 400 mls/hr IVPB Q12 [facility] Last Admin: 08/22/17 10:14 Dose: 400 mls/hr Insulin Human Lispro (Humalog Low) 0 units SC [facility] PRN Reason: Protocol Last Admin: 08/22/17 10:24 Dose: 1 units Linezolid (Zyvox) 600 mg PO BID [facility] PRN Reason: Protocol Stop: 08/31/17 10:01 Last Admin: 08/22/17 10:18 Dose: 600 mg Metoprolol Tartrate (Lopressor) 25 mg PO Q12H [facility] Last Admin: 08/22/17 06:52 Dose: 25 mg Ondansetron HCl (Zofran Inj) 4 mg IVP Q6H PRN PRN Reason: Nausea/Vomiting Oxycodone/Acetaminophen (Percocet 5/325 Mg Tab) 2 tab PO Q4H PRN PRN Reason: Pain, moderate (4-7) Stop: 08/23/17 15:21 Oxycodone/Acetaminophen (Percocet 5/325 Mg Tab) 1 tab PO Q4H PRN PRN Reason: Pain, moderate (4-7) Stop: 08/24/17 16:34 Last Admin: 08/22/17 06:51 Dose: 1 tab Oxycodone/Acetaminophen (Percocet 5/325 Mg Tab) 2 tab PO Q4H PRN PRN Reason: Pain, severe (8-10) Stop: 08/24/17 16:34 Pantoprazole Sodium (Protonix Ec Tab) 40 mg PO 0600 [facility] Last Admin: 08/22/17 06:52 Dose: 40 mg Sevelamer HCl (Renagel) 1,600 mg PO TID [facility] Last Admin: 08/22/17 10:13 Dose: 1,600 mg Valsartan (Diovan) 320 mg PO DAILY [facility] Last Admin: 08/18/17 10:30 Dose: 320 mg Vitamin B Complex/Vit C/Folic Acid (Nephro-Callie) 1 tab PO DAILY [facility] Last Admin: 08/22/17 10:21 Dose: 1 tab - Labs Labs: 08/22/17 08:05 08/22/17 08:05 PT 10.7 Seconds (9.9-11.8) 08/16/17 04:45 INR 0.99 (0.93-1.08) 08/16/17 04:45 APTT 27.2 Seconds (23.7-30.8) 08/16/17 04:45 - Constitutional Appears: Well, Non-toxic, No Acute Distress - Extremities Exam Additional comments: Vasc: DP 1/4 bilaterally, PT is nonpalpable, popliteal pulses palpable, localized edema noted to the right hallux Ortho: no pain with palpation to the right great toe Neuro: protective sensation greatly diminished bilaterally Derm: Full thickness ulceration to the plantar right hallux, wound base mainly fibrotic with granular tissue noted to the ulceration, no odor noted, serosangious drainage noted with no purulence drainage noted, erythema present to the right hallux with no ascending cellulitis noted, periwound is intact, wound does not probe to bone, s/p debridement showing decreased hyperkeratotic skin surrounding ulceration, decreased necrotic, nonviable tissue to the ulceration. - Neurological Exam Neurological Exam: Alert, Awake, Oriented x3 - Psychiatric Exam Psychiatric exam: Normal Affect, Normal Mood Assessment and Plan - Assessment and Plan (Free Text) Assessment: 57 year old female with PMH of DM seen at bedside for +OM right distal phalanx and 1 day s/p debridement of right hallux plantar ulceration Plan: Patient examined and evaluated with attending Dr. Mcdaniel Labs, charts, vitals reviewed (afebrile, WBC=8.7) Ulceration cleansed with saline and dressed with adapatic, dsd, and kerlix. Ordered Santyl- to be applied with dressing change consisting of dsd and kerlix Wound culture results +MRSA MRI results- R distal phalanx suspicious for OM Continue abx per ID to treat OM Patient may WBAT in forefoot offloading shoe to the R Consulted physical therapy to elevate and dispense forefoot offloading shoe prior to discharge. Thank you Patient is stable per podiatry standpoint for discharge Will f/u in wound care in a week with Dr. Mcdaniel Will continue to follow while in house <Nestor Mcdaniel - Last Filed: 08/23/17 08:29> Objective - Vital Signs/Intake and Output Vital Signs (last 24 hours): Temp Pulse Resp BP Pulse Ox 98.6 F 70 22 178/81 H 98 08/22/17 07:00 08/22/17 07:00 08/22/17 07:00 08/22/17 18:15 08/22/17 07:00 - Labs Labs: 08/22/17 08:05 08/22/17 08:05 PT 10.7 Seconds (9.9-11.8) 08/16/17 04:45 INR 0.99 (0.93-1.08) 08/16/17 04:45 APTT 27.2 Seconds (23.7-30.8) 08/16/17 04:45 Attending/Attestation - Attestation I have personally seen and examined this patient.: Yes I have fully participated in the care of the patient.: Yes I have reviewed all pertinent clinical information, including history, physical exam and plan: Yes
[2017-08-22] MEDS ORDERED: Collagenase 250 Units/gm Ointment(30 gm) TOP SCH (13:00)
--- NOTE | 2017-08-22 16:08 | CP.PCM.DIS ---
Addendum entered and electronically signed by Carlos Ignacio DO 08/22/17 16:30 : During hospital course. Patient was transfused 2u of PRBC. Repeat Hg was steady with no signs of acute or active bleeding. Carlos Ignacio PGY1 Original Note: <Carlos Ignacio - Last Filed: 08/22/17 16:11> Provider - Provider Date of Admission: 08/16/17 05:21 Attending physician: Bo Gutierrez MD Primary care physician: Derek Brand MD Time Spent in preparation of Discharge (in minutes): 45 Hospital Course - Lab Results Lab Results: Micro Results 08/17/17 12:04 Foot - Left Gram Stain - Final 08/17/17 12:04 Foot - Left Wound Culture - Final Methicillin Resistant S Aureus Most Recent Lab Values WBC 8.7 10^3/ul (4.5-11.0) 08/22/17 08:05 RBC 3.56 10^6/uL (3.5-6.1) 08/22/17 08:05 Hgb 10.1 g/dL (12.0-16.0) L D 08/22/17 08:05 Hct 31.2 % (36.0-48.0) L 08/22/17 08:05 MCV 87.6 fl (80.0-105.0) 08/22/17 08:05 MCH 28.4 pg (25.0-35.0) 08/22/17 08:05 MCHC 32.4 g/dl (31.0-37.0) 08/22/17 08:05 RDW 16.7 % (11.5-14.5) H 08/22/17 08:05 Plt Count 296 10^3/uL (120.0-450.0) 08/22/17 08:05 MPV 8.7 fl (7.0-11.0) 08/22/17 08:05 Gran % 68.4 % (50.0-68.0) H 08/21/17 08:24 Lymph % (Auto) 21.2 % (22.0-35.0) L 08/21/17 08:24 Phelps % (Auto) 5.3 % (1.0-6.0) 08/21/17 08:24 Eos % (Auto) 4.6 % (1.5-5.0) 08/21/17 08:24 Baso % (Auto) 0.5 % (0.0-3.0) 08/21/17 08:24 Gran # 5.55 (1.4-6.5) 08/21/17 08:24 Lymph # 1.7 (1.2-3.4) 08/21/17 08:24 Phelps # 0.4 (0.1-0.6) 08/21/17 08:24 Eos # 0.4 (0.0-0.7) 08/21/17 08:24 Baso # 0.04 K/mm3 (0.0-2.0) 08/21/17 08:24 ESR 116 mm/hr (0.0-20.0) H 08/16/17 12:45 PT 10.7 Seconds (9.9-11.8) 08/16/17 04:45 INR 0.99 (0.93-1.08) 08/16/17 04:45 APTT 27.2 Seconds (23.7-30.8) 08/16/17 04:45 Sodium 140 mmol/L (132-148) 08/22/17 08:05 Potassium 4.3 mmol/L (3.6-5.0) 08/22/17 08:05 Chloride 98 mmol/L (98-107) 08/22/17 08:05 Carbon Dioxide 33 mmol/L (21-33) 08/22/17 08:05 Anion Gap 13 (10-20) 08/22/17 08:05 BUN 17 mg/dL (7-21) 08/22/17 08:05 Creatinine 5.7 mg/dL (0.7-1.2) H 08/22/17 08:05 Est GFR ( Amer) 9 08/22/17 08:05 Est GFR (Non-Af Amer) 8 08/22/17 08:05 POC Glucose (mg/dL) 150 mg/dL (65-110) H 08/22/17 07:42 Random Glucose 150 mg/dL (70-110) H 08/22/17 08:05 Calcium 8.1 mg/dL (8.4-10.5) L 08/22/17 08:05 Phosphorus 8.4 mg/dL (2.5-4.5) H 08/21/17 07:20 Magnesium 2.1 mg/dL (1.7-2.2) 08/20/17 07:34 Total Bilirubin 0.4 mg/dL (0.2-1.3) 08/21/17 08:24 AST 41 U/L (14-36) H D 08/21/17 08:24 ALT 22 U/L (7-56) 08/21/17 08:24 Alkaline Phosphatase 69 U/L (38-126) 08/21/17 08:24 Total Protein 7.0 g/dL (5.8-8.3) 08/21/17 08:24 Albumin 3.6 g/dL (3.0-4.8) 08/21/17 08:24 Globulin 3.4 gm/dL 08/21/17 08:24 Albumin/Globulin Ratio 1.1 (1.1-1.8) 08/21/17 08:24 Blood Type B POSITIVE 08/21/17 10:33 Blood Type Confirm B POSITIVE 08/16/17 06:00 Antibody Screen Negative 08/21/17 10:33 Crossmatch See Detail 08/21/17 10:33 BBK History Checked Patient has bt 08/21/17 10:33 - Hospital Course Hospital Course: 57F w pertinent PMHx of HTN, DM, and ESRD on Dialysis TTSa presented with 2 hour duration of profuse bleeding 2/2 her dialysis catheter coming out. She states that she woke up at 3AM and found herself to be bleeding from the catheter site. She and her family both state that sometimes she becomes obtunded but that this am she was lucid, and that she did not pull the catheter out. Patient presented to the ED with profuse bleeding and a permacath no longer in place. XRay was taken and showed no residual parts of the catheter left. Temporary Femoral catheter was placed dialysis dialysis Surgery was consulted and permacath was placed successfully. Pt had one day of hyperkalemia in which she was asymptomatic w/ no changes on EKG. HD was performed the next day and Hyperkalemia resolved. Podiatry and ID was consulted for right hallux infection. MRI reviewed showing osteomyelitis. Antibiotics were started. Pt was also taken to the OR for debridement of Right hallux. Pt tolerated the procedure well. Patient will need 4 weeks of vanco during dialysis as per ID. Neurology evaluation was also appreciated for possible seizure episode on Friday. Patient was started on keppra. During stay, however will be discharged home without Keppra due to symtoms most likely to sudden drop in blood pressure at the time. During Dialysis pt systolic pressure was 160 and dropped to 92. Pt discharge home in good condition. Dialysis scheduled tomorrow and follow up with Podiatry within one week. Right foot dressing changes use Santyl dry and krillex. Pt to also follow up as outpatient at [facility] for AV-Fistula formation. Discharge Exam - Head Exam Head Exam: ATRAUMATIC, NORMAL INSPECTION, NORMOCEPHALIC - Eye Exam Eye Exam: EOMI. absent: Scleral icterus - ENT Exam ENT Exam: Mucous Membranes Moist - Respiratory Exam Respiratory Exam: NORMAL BREATHING PATTERN. absent: Accessory Muscle Use, Respiratory Distress - Cardiovascular Exam Cardiovascular Exam: +S1, +S2. absent: Bradycardia, Tachycardia - GI/Abdominal Exam GI & Abdominal Exam: Normal Bowel Sounds, Soft. absent: Distended, Tenderness - Extremities Exam Additional comments: Right foot wrapped. Dressing C/D/I Right IJ Permacath dressing C/D/I. Steri-strips in place - Neurological Exam Neurological exam: Alert - Psychiatric Exam Psychiatric exam: Normal Affect - Skin Skin Exam: Normal Color, Warm Discharge Plan - Discharge Medications Prescriptions: Collagenase [Santyl] 1 gm TOP DAILY 10 Days tube - Follow Up Plan Condition: FAIR Disposition: HOME/ ROUTINE Instructions: Diabetes Mellitus Type 1 in Adults (DC), Cholesterol and Your Health (GEN), Chronic Wound Care (GEN), Hypertension (DC), Fall Prevention (GEN) , Perma-cath Placement (GEN) Additional Instructions: Pt to be discharged home with new RIJ permacath which can be used for dialysis. During each dialysis treatment 1g of Vancomycin should be administered. Dressing changes of the Right foot should be done with Santyl dsd and krilex. dialysis tomorrow, schedule is TTS. Follow up with Nephrology and vascular surgery for eventual AV fistula. Referrals: Derek Brand MD [Primary Care Provider] - <Bo Gutierrez - Last Filed: 08/22/17 18:08> Provider - Provider Date of Admission: 08/16/17 05:21 Attending physician: Bo Gutierrez MD Primary care physician: Derek Brand MD Hospital Course - Lab Results Lab Results: Micro Results 08/17/17 12:04 Foot - Left Gram Stain - Final 08/17/17 12:04 Foot - Left Wound Culture - Final Methicillin Resistant S Aureus Most Recent Lab Values WBC 8.7 10^3/ul (4.5-11.0) 08/22/17 08:05 RBC 3.56 10^6/uL (3.5-6.1) 08/22/17 08:05 Hgb 10.1 g/dL (12.0-16.0) L D 08/22/17 08:05 Hct 31.2 % (36.0-48.0) L 08/22/17 08:05 MCV 87.6 fl (80.0-105.0) 08/22/17 08:05 MCH 28.4 pg (25.0-35.0) 08/22/17 08:05 MCHC 32.4 g/dl (31.0-37.0) 08/22/17 08:05 RDW 16.7 % (11.5-14.5) H 08/22/17 08:05 Plt Count 296 10^3/uL (120.0-450.0) 08/22/17 08:05 MPV 8.7 fl (7.0-11.0) 08/22/17 08:05 Gran % 68.4 % (50.0-68.0) H 08/21/17 08:24 Lymph % (Auto) 21.2 % (22.0-35.0) L 08/21/17 08:24 Phelps % (Auto) 5.3 % (1.0-6.0) 08/21/17 08:24 Eos % (Auto) 4.6 % (1.5-5.0) 08/21/17 08:24 Baso % (Auto) 0.5 % (0.0-3.0) 08/21/17 08:24 Gran # 5.55 (1.4-6.5) 08/21/17 08:24 Lymph # 1.7 (1.2-3.4) 08/21/17 08:24 Phelps # 0.4 (0.1-0.6) 08/21/17 08:24 Eos # 0.4 (0.0-0.7) 08/21/17 08:24 Baso # 0.04 K/mm3 (0.0-2.0) 08/21/17 08:24 ESR 116 mm/hr (0.0-20.0) H 08/16/17 12:45 PT 10.7 Seconds (9.9-11.8) 08/16/17 04:45 INR 0.99 (0.93-1.08) 08/16/17 04:45 APTT 27.2 Seconds (23.7-30.8) 08/16/17 04:45 Sodium 140 mmol/L (132-148) 08/22/17 08:05 Potassium 4.3 mmol/L (3.6-5.0) 08/22/17 08:05 Chloride 98 mmol/L (98-107) 08/22/17 08:05 Carbon Dioxide 33 mmol/L (21-33) 08/22/17 08:05 Anion Gap 13 (10-20) 08/22/17 08:05 BUN 17 mg/dL (7-21) 08/22/17 08:05 Creatinine 5.7 mg/dL (0.7-1.2) H 08/22/17 08:05 Est GFR ( Amer) 9 08/22/17 08:05 Est GFR (Non-Af Amer) 8 08/22/17 08:05 POC Glucose (mg/dL) 150 mg/dL (65-110) H 08/22/17 07:42 Random Glucose 150 mg/dL (70-110) H 08/22/17 08:05 Calcium 8.1 mg/dL (8.4-10.5) L 08/22/17 08:05 Phosphorus 8.4 mg/dL (2.5-4.5) H 08/21/17 07:20 Magnesium 2.1 mg/dL (1.7-2.2) 08/20/17 07:34 Total Bilirubin 0.4 mg/dL (0.2-1.3) 08/21/17 08:24 AST 41 U/L (14-36) H D 08/21/17 08:24 ALT 22 U/L (7-56) 08/21/17 08:24 Alkaline Phosphatase 69 U/L (38-126) 08/21/17 08:24 Total Protein 7.0 g/dL (5.8-8.3) 08/21/17 08:24 Albumin 3.6 g/dL (3.0-4.8) 08/21/17 08:24 Globulin 3.4 gm/dL 08/21/17 08:24 Albumin/Globulin Ratio 1.1 (1.1-1.8) 08/21/17 08:24 Blood Type B POSITIVE 08/21/17 10:33 Blood Type Confirm B POSITIVE 08/16/17 06:00 Antibody Screen Negative 08/21/17 10:33 Crossmatch See Detail 08/21/17 10:33 BBK History Checked Patient has bt 08/21/17 10:33 Attending/Attestation - Attestation I have personally seen and examined this patient.: Yes I have fully participated in the care of the patient.: Yes I have reviewed all pertinent clinical information, including history, physical exam and plan: Yes Notes (Text): 08/22/17 18:05 57 year old female who presented after her dialysis catheter came out. She was seen by nephrology and surgery. She is s/p permacath placement POD #2. She was also seen by ID and podiatry for right hallux infection. MRI showed osteomyelitis. She was on antibiotics and will need 4 weeks of vanco during dialysis as per ID. 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 She is being discharged home to follow up with her pmd. Follow up with nephrology and vascular surgery. Follow up with IR and wound care / podiatry. Bo Gutierrez MD Hospitalist.
[2017-08-22 18:15] VITALS: BP 178/81
--- NOTE | 2017-08-24 02:55 | OP ---
PROCEDURE DATE: 08/21/2017 PREOPERATIVE DIAGNOSIS: Nonviable, necrotic, and gangrenous infected right plantar hallux ulceration. POSTOPERATIVE DIAGNOSIS: Nonviable, necrotic, and gangrenous infected right plantar hallux ulceration. NAME OF PROCEDURE: Debridement of nonviable necrotic and gangrenous infected right plantar hallux ulceration via Versajet. SURGEON: Nestor Mcdaniel DPM [employer] FOUNDER: Da Kennedy DPM, PGY-1 TYPE OF ANESTHESIA: IV sedation with local. ANESTHESIOLOGIST: Dr. Mcguire. INDICATIONS: The patient is a 57-year-old female with the above diagnosis. The patient has exhausted all conservative treatments at this time and now requires surgical intervention. The patient signed the consent after careful explanation of risks, benefits, complications, and alternatives for surgical procedure. No guarantees were given nor implied. N.p.o. status was confirmed prior to taking the patient to the OR. DESCRIPTION OF PROCEDURE: The patient was brought into the operating room and placed on the operating room table in a supine position. A time-out was performed for identification of the correct patient and procedure. After induction of IV sedation, the patient received a total of 15 mL of a 1:1 mixture of 0.5% Marcaine plain and 2% lidocaine plain in a local block fashion to the right hallux. The right lower extremity was then prepped and draped in a normal sterile manner and the procedure began. No tourniquet was used during the procedure. Attention was then directed to the plantar aspect of the right hallux where the ulceration is located. The ulceration measured approximately 2.5 cm x 2.5 cm x 0.3 cm with wound base being mainly fibrous with necrotic tissue noted. The wound border is hyperkeratotic with excessive nonviable tissue noted. Using a #15 blade and a pickup, all hyperkeratotic tissues surrounding the ulceration site were excisionally debrided until a healthy epidural layer was exposed. Using a Versajet on power setting 5, the base of the ulceration was non-excisionally debrided of all fibrotic and nonviable tissues until fresh healthy bleeding tissue appeared at the surgical site. The ulceration site was copiously flushed using sterile saline solution. The surgical site was then dressed with Betadine-soaked Adaptic, sterile gauze, ABD, Kerlix, and light Coban. POSTOPERATIVE CONDITION: The patient tolerated the anesthesia well and the procedure well and was escorted to the recovery room with vital signs stable and neurovascular status intact to the right leg. Podiatry will continue to follow the patient while the patient is in-house. The patient will follow up with Dr. Mcdaniel upon discharge within a week in Wound Care. Da Kennedy DPM Nestor Mcdaniel DPM [id number]
== END 2017-08-22 19:45 | disposition home or self-care (01) | DRG 314 ==
LOC: ED 03:50 → ERH 05:21 → 5RSO 07:10
PROVIDERS: ADMIT Internal Medicine; ATTEND Internal Medicine
PROC: 02H633Z Insertion of Infusion Device into Right Atrium, Percutaneous Approach (ICD-10-PCS; 2017-08-16)
PROC: B543ZZA Ultrasonography of Right Jugular Veins, Guidance (ICD-10-PCS; 2017-08-16)
PROC: 5A1D70Z Performance of Urinary Filtration, Intermittent, Less than 6 Hours Per Day (ICD-10-PCS; 2017-08-16)
PROC: 30233N1 Transfusion of Nonautologous Red Blood Cells into Peripheral Vein, Percutaneous Approach (ICD-10-PCS; 2017-08-21)
PROC: 0JDQ3ZZ Extraction of Right Foot Subcutaneous Tissue and Fascia, Percutaneous Approach (ICD-10-PCS; principal; 2017-08-21 16:00)
DX: T82.520A Displacement of surgically created arteriovenous fistula, initial encounter (principal); N18.6 End stage renal disease; E11.52 Type 2 diabetes mellitus with diabetic peripheral angiopathy with gangrene; I12.0 Hypertensive chronic kidney disease with stage 5 chronic kidney disease or end stage renal disease; M86.8X7 Other osteomyelitis, ankle and foot; E11.69 Type 2 diabetes mellitus with other specified complication; E11.22 Type 2 diabetes mellitus with diabetic chronic kidney disease; I25.10 Atherosclerotic heart disease of native coronary artery without angina pectoris; E11.621 Type 2 diabetes mellitus with foot ulcer; L97.519 Non-pressure chronic ulcer of other part of right foot with unspecified severity; E78.00 Pure hypercholesterolemia, unspecified; E87.5 Hyperkalemia; E11.40 Type 2 diabetes mellitus with diabetic neuropathy, unspecified; L03.031 Cellulitis of right toe; B95.62 Methicillin resistant Staphylococcus aureus infection as the cause of diseases classified elsewhere; R56.9 Unspecified convulsions; D63.1 Anemia in chronic kidney disease; Y83.2 Surgical operation with anastomosis, bypass or graft as the cause of abnormal reaction of the patient, or of later complication, without mention of misadventure at the time of the procedure; Z86.73 Personal history of transient ischemic attack (TIA), and cerebral infarction without residual deficits; Z91.11 Patient's noncompliance with dietary regimen; Z95.5 Presence of coronary angioplasty implant and graft; Z99.2 Dependence on renal dialysis

== ENCOUNTER 2018-01-11 17:18 | Emergency (ER) | payer BC ==
[2018-01-11 17:29] VITALS: BMI 34.2
[2018-01-11] MEDS ORDERED: Sodium Chloride 0.9% 1,000 ML IV SCH (17:30)
[2018-01-11] MEDS ORDERED: Iodixanol 320 MG/ML 100 ML BOTTLE IV ONE (17:37)
--- NOTE | 2018-01-11 17:45 | CT ---
PROCEDURE: CT HEAD WITHOUT CONTRAST. HISTORY: code stroke COMPARISON: 08/17/2017 TECHNIQUE: Axial computed tomography images were obtained through the head/brain without intravenous contrast. Radiation dose: Total exam DLP = 998 mGy-cm. This CT exam was performed using one or more of the following dose reduction techniques: Automated exposure control, adjustment of the mA and/or kV according to patient size, and/or use of iterative reconstruction technique. FINDINGS: HEMORRHAGE: No intracranial hemorrhage. BRAIN: No mass effect or edema. There is a chronic lacunar infarct in the right thalamus. There are no acute intracranial findings VENTRICLES: Unremarkable. No hydrocephalus. CALVARIUM: Unremarkable. PARANASAL SINUSES: Unremarkable as visualized. No significant inflammatory changes. MASTOID AIR CELLS: Unremarkable as visualized. No inflammatory changes. OTHER FINDINGS: None. IMPRESSION: No acute intracranial finding
[2018-01-11 18:18] VITALS: TEMP 97.7
--- NOTE | 2018-01-11 18:21 | ED PDOC ---
Arrival/HPI - General Chief Complaint: Weakness/Neurological Deficit Time Seen by Provider: 01/11/18 17:30 - History of Present Illness Narrative History of Present Illness (Text): 01/11/18 18:13 57 year old female presents to the Emergency department via emergency services complaining of a right sided facial droop. Patient reports that she is a dialysis patient on Friday, Friday, and Friday. She did not have an appetite this morning and took her regular dose of insulin without food. When emergency services arrived at the patient's house, they found the patient to be hypoglycemic. Patient was given an amp of D50. Symptoms have resolved since receiving D50. Patient denies any fever, chills, chest pain, shortness of breath , nausea, vomiting, diarrhea, urinary symptoms, back pain, neck pain, headache, dizziness, or any other complaints. 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) Hx Cataracts: Yes (b/l sx) - Renal Hx Renal Disorder: Yes Hx Dialysis: Yes (started hd 12/2016) Date of Last Dialysis Treatment: 08/14/17 Other/Comment: dialysis at [facility] t th sat, pt voids - Endocrine/Metabolic Hx Endocrine Disorders: Yes Hx Diabetes Mellitus Type 2: Yes - Hematological/Oncological Hx Blood Disorders: No - Integumentary Other/Comment: closed wound r 1st toe swelling, r chest former site of hd cath that became dislodged no bleeding 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 - Musculoskeletal/Rheumatological Hx Musculoskeletal Disorders: No - Gastrointestinal Hx Gastrointestinal Disorders: No - Genitourinary/Gynecological Hx Genitourinary Disorders: No - Psychiatric Hx Psychophysiologic Disorder: No Hx Substance Use: No - Surgical History Hx Cardiac Catheterization: Yes Hx Coronary Stent: Yes (x1) - Anesthesia Hx Anesthesia Reactions: No Family/Social History - Physician Review Nursing Documentation Reviewed: Yes Family/Social History: Unknown Family HX Smoking Status: Never Smoked Hx Alcohol Use: No Hx Substance Use: No Allergies/Home Meds Allergies/Adverse Reactions: Allergies No Known Drug Allergies Allergy (Mild, Verified 08/16/17 04:01) none Home Medications: Home Meds Medication Instructions Recorded Confirmed Aspirin [Aspirin Chewable] 81 mg PO DAILY 08/16/17 08/16/17 Atorvastatin [Lipitor] 40 mg PO HS 08/16/17 08/16/17 B Complex W-C No.20/Folic Acid 1 mg PO DAILY 08/16/17 08/16/17 [[place] Caps Softgel] Calcium Acetate [Phoslo] 667 mg PO TID 08/16/17 08/16/17 Gabapentin [Neurontin] 100 mg PO DAILY 08/16/17 08/16/17 Metoprolol Tartrate [Lopressor] 25 mg PO Q12H 08/16/17 08/16/17 Valsartan [Diovan] 320 mg PO DAILY 08/16/17 08/16/17 amLODIPine [Norvasc] 10 mg PO DAILY 08/16/17 08/16/17 Review of Systems - Physician Review All systems were reviewed & negative as marked: Yes - Review of Systems Constitutional: absent: Fevers, Night Sweats Respiratory: absent: SOB Cardiovascular: absent: Chest Pain Gastrointestinal: absent: Diarrhea, Nausea, Vomiting Genitourinary Female: absent: Dysuria Musculoskeletal: absent: Back Pain, Neck Pain Neurological: Facial Droop (resolved). absent: Headache, Dizziness Physical Exam Vital Signs Reviewed: Yes Vital Signs Temp Pulse Resp BP Pulse Ox 01/11/18 21:16 90 19 180/88 H 99 01/11/18 19:28 158/86 H 01/11/18 19:00 80 17 158/86 H 96 01/11/18 18:14 97.7 F 85 18 206/109 H 99 Temperature: Afebrile Blood Pressure: Hypertensive Pulse: Regular Respiratory Rate: Normal Appearance: Positive for: Well-Appearing, Non-Toxic, Comfortable Pain Distress: None Mental Status: Positive for: Alert and Oriented X 3 Finger Stick Blood Glucose: 166 - Systems Exam Head: Present: Atraumatic, Normocephalic Pupils: Present: PERRL Extroacular Muscles: Present: EOMI Conjunctiva: Present: Normal Mouth: Present: Moist Mucous Membranes Neck: Present: Normal Range of Motion Respiratory/Chest: Present: Clear to Auscultation, Good Air Exchange. No: Respiratory Distress, Accessory Muscle Use Cardiovascular: Present: Regular Rate and Rhythm, Normal S1, S2. No: Murmurs Abdomen: Present: Normal Bowel Sounds. No: Tenderness, Distention, Peritoneal Signs Back: Present: Normal Inspection Upper Extremity: Present: Normal Inspection. No: Cyanosis, Edema Lower Extremity: Present: Normal Inspection. No: Edema Neurological: Present: GCS=15, CN II-XII Intact, Speech Normal Skin: Present: Warm, Dry, Normal Color. No: Rashes Psychiatric: Present: Alert, Oriented x 3, Normal Insight, Normal Concentration Medical Decision Making ED Course and Treatment: 01/11/18 18:05 Impression: 57 year old female presents to the Emergency department with a facial droop and hypoglycemia. Plan: -- CTA head/neck code stroke -- EKG -- Chest X-ray -- Urinalysis -- IV hydraion -- Labs -- Reassess and disposition Progress Notes: 01/11/18 18:17 Discussed case in detail with Dr. Navarro who agrees with canceling the code stroke. Emergency services were initially called to patient's house due to facial droop. When they got there, the patient was hypoglycemic and was given an amp of D50. Symptoms improved. At this time, while in the Emergency department, patient does not have a facial droop and her blood sugar level is normal. 01/11/18 21:25 Upon reviewing all results, patient is clear to be discharged home with the diagnosis of hypoglycemia. - Lab Interpretations Lab Results: 01/11/18 18:40 01/11/18 18:40 Lab Results 01/11/18 20:15: POC Glucose (mg/dL) 94 01/11/18 18:40: Sodium 141, Potassium 4.5, Chloride 100, Carbon Dioxide 28, Anion Gap 18, BUN 39 H, Creatinine 8.8 H*, Est GFR ( Amer) 6, Est GFR ( Non-Af Amer) 5, Random Glucose 124 H, Calcium 11.2 H, Total Bilirubin 0.6, AST 35, ALT 26, Alkaline Phosphatase 91, Troponin I 0.04, NT-Pro-B Natriuret Pep 218075 H, Total Protein 8.3, Albumin 4.3, Globulin 3.9, Albumin/Globulin Ratio 1.1, Triglycerides 89, Cholesterol 253 H, LDL Cholesterol Direct 97, HDL Cholesterol 98 H 01/11/18 18:40: PT 10.3, INR 0.91 L, APTT 33.8 01/11/18 18:40: WBC 8.5, RBC 3.79, Hgb 11.4 L, Hct 34.9 L, MCV 92.1 D, MCH 30.1 , MCHC 32.7, RDW 15.4 H, Plt Count 286, MPV 10.2, Gran % 73.2 H, Lymph % (Auto) 17.1 L, [place] % (Auto) 6.2 H, Eos % (Auto) 2.9, Baso % (Auto) 0.6, Gran # 6.21, Lymph # (Auto) 1.5, [place] # (Auto) 0.5, Eos # (Auto) 0.3, Baso # (Auto) 0.05 - RAD Interpretation Narrative RAD Interpretations (Text): 01/11/2018 17:43:38 PROCEDURE: CT HEAD WITHOUT CONTRAST. FINDINGS: HEMORRHAGE: No intracranial hemorrhage. BRAIN: No mass effect or edema. There is a chronic lacunar infarct in the right thalamus. There are no acute intracranial findings VENTRICLES: Unremarkable. No hydrocephalus. CALVARIUM: Unremarkable. PARANASAL SINUSES: Unremarkable as visualized. No significant inflammatory changes. MASTOID AIR CELLS: Unremarkable as visualized. No inflammatory changes. OTHER FINDINGS: None. IMPRESSION: No acute intracranial finding 01/11/18 19:26 CXR Impression: As read by me, no pneumothorax, no pneumonia, no cardiomegaly, no infiltrates. Radiology Orders: 01/11/18 17:31 HEAD W/O (CODE STROKE) [CT] Stat CHEST ONE VIEW [RAD] Stat - EKG Interpretation EKG Interpretation (Text): 01/11/18 18:24 EKG: Ordered, reviewed, and independently interpreted the EKG. Rate : 84 BPM Rhythm : NSR Interpretation : Nonspecific ST and T wave abnormality. Prolonged QT. Interpreted by ED Physician: Yes Type: 12 lead EKG - Medication Orders Current Medication Orders: Discontinued Medications Hydralazine HCl (Apresoline) 10 mg IVP ONCE ONE Stop: 01/11/18 19:22 Last Admin: 01/11/18 19:28 Dose: 10 mg IVP Administration Document 01/11/18 19:28 CNR (Rec: 01/11/18 19:28 CNR [facility] [id number]) Charges for Administration # of IVP Administrations 1 JAN Pulse and Blood Pressure Document 01/11/18 19:28 CNR (Rec: 01/11/18 19:28 CNR [facility] [id number]) Blood Pressure Blood Pressure (100/60-150/90) 158/86 - 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 - Scribe Statement The provider has reviewed the documentation as recorded by the Scribe Armani Shaw Provider Scribe Attestation: All medical record entries made by the Scribe were at my direction and personally dictated by me. I have reviewed the chart and agree that the record accurately reflects my personal performance of the history, physical exam, medical decision making, and the department course for this patient. I have also personally directed, reviewed, and agree with the discharge instructions and disposition. Disposition/Present on Arrival - Present on Arrival Any Indicators Present on Arrival: No History of DVT/PE: No History of Uncontrolled Diabetes: No Urinary Catheter: No History of Decub. Ulcer: No History Surgical Site Infection Following: None - Disposition Have Diagnosis and Disposition been Completed?: Yes Diagnosis: Hypoglycemia Disposition: HOME/ ROUTINE Disposition Time: 21:27 Patient Plan: Discharge Condition: GOOD Discharge Instructions (ExitCare): Low Blood Sugar in People With Diabetes Additional Instructions: Mrs Bettencourt- It was a pleasure caring for you. Take your medicines, Eat and keep your appointments. Best- Dr. Edgar Padilla Referrals: Derek Brand MD [Staff Provider] - Follow up with primary Forms: [employer] ([place])
[2018-01-11 18:58] LABS: BASO # 0.05 K/mm3 (0.0-2.0); BASO % 0.6 % (0.0-3.0); EOS # 0.3 (0.0-0.7); EOS % 2.9 % (1.5-5.0); GRAN # 6.21 (1.4-6.5); GRAN % 73.2 % (50.0-68.0); HEMOGLOBIN 11.4 g/dL (12.0-16.0); LYMPH # 1.5 (1.2-3.4); LYMPH % 17.1 % (22.0-35.0); MEAN CELL VOLUME 92.1 fl (80.0-105.0); MEAN CORPUSCULAR HEMOGLOBIN 30.1 pg (25.0-35.0); MEAN CORPUSCULAR HGB CONC 32.7 g/dl (31.0-37.0); MEAN PLATELET VOLUME 10.2 fl (7.0-11.0); MONO # 0.5 (0.1-0.6); MONO % 6.2 % (1.0-6.0); RBC 3.79 10^6/uL (3.5-6.1); RED CELL DISTRIBUTION WIDTH 15.4 % (11.5-14.5); WHITE BLOOD COUNT 8.5 10^3/ul (4.5-11.0)
[2018-01-11 19:06] LABS: PROTHROMBIN TIME 10.3 SECONDS (9.4-12.5)
[2018-01-11 19:07] LABS: INR 0.91 (0.93-1.08); PARTIAL THROMBOPLASTIN TIME 33.8 Seconds (25.1-36.5)
[2018-01-11 19:17] LABS: ALB/GLOB RATIO 1.1 (1.1-1.8)
[2018-01-11 19:27] LABS: TROPONIN I 0.04 ng/mL
[2018-01-11 20:51] LABS: ALBUMIN 4.3 g/dL (3.0-4.8); CALCIUM 11.2 mg/dL (8.4-10.5)
[2018-01-11 21:19] VITALS: BP 180/88; PULSE 90; RESP 19; O2SAT 99
--- NOTE | 2018-01-12 08:43 | RAD ---
PROCEDURE: CHEST RADIOGRAPH, 1 VIEW HISTORY: Code Stroke COMPARISON: 08/16/2017. FINDINGS: The right-sided dialysis catheter terminates at the cavoatrial junction. LUNGS: The lungs are well inflated. PLEURA: No pneumothorax. There is a small right pleural effusion. CARDIOVASCULAR: Normal. OSSEOUS STRUCTURES: No significant abnormalities. VISUALIZED UPPER ABDOMEN: Normal. OTHER FINDINGS: None. IMPRESSION: Small right pleural effusion. Right-sided dialysis catheter terminates at the cavoatrial junction.
--- NOTE | 2018-01-12 09:51 | CARD ---
APPROVED REPORT EKG Measurement Heart [id number] CO 140P67 [id number] <Conclusion> Normal sinus rhythm Nonspecific ST and T wave abnormality Prolonged QT Abnormal ECG
== END 2018-01-11 22:04 | disposition home or self-care (01) ==
LOC: ED 17:18
DX: E11.649 Type 2 diabetes mellitus with hypoglycemia without coma (principal); I10 Essential (primary) hypertension; Z99.2 Dependence on renal dialysis
CPT/HCPCS: 70450; 71045; 80053; 80061; 82948; 83036; 83880; 84484; 85025; 85610; 85730; 93005; 96374; 99285; J0360